=== PATIENT | female | born 1940 | race Caucasian/White ===

== ENCOUNTER 2020-01-20 23:25 | Inpatient (IN) | payer MEDICARE, BC, SELFPAY ==
--- NOTE | 2020-01-20 23:33 | P.HP_ITS ---
Providers/Chief Complaint Admitting Physician: Patrick Almeida MD Primary Care Provider: Sav Gaming Chief Complaint: A FLUTTER COPD EXACERBATION History of Present Illness Alyse Ang is a 79 year old female who has established coronary artery disease status post CABG HERNANDEZ to LAD venous graft to PDA, history of active smoker, dyslipidemia, hypertension, was admitted for chief complaint of shortness of breath at [facility] from [facility] assisted [facility] for management of COPD exacerbation due to pneumonia. Sputum culture grew Haemophilus influenza and she was kept on ceftriaxone and azithromycin. Her beta-georgiana was held secondary to COPD exacerbation, On telemetry her heart rate has been fluctuating between 36-143 atrial fibrillation/atrial flutter, however when beta-georgiana was resumed her heart rate consistently remained between 60-80, she remained hemodynamically stable, she was started on Eliquis 5 mg twice a day. 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 Landers and there is some concern for tachybradycardia syndrome. On her arrival to our facility, she was asymptomatic, no chest pain no shortness of breath, she was saturating well on 2 L nasal cannula. Patient is stating that she has not been using oxygen at the facility because she has very bad shoulders/osteoarthritis and not able to carry the oxygen tank, she is smoking 1 pack/day, she is compliant with her medications, she saw Dr. Landers around October 2019 and he recommended follow-up in 9 months. She does not carry previous diagnosis of atrial fibrillation/flutter. She is currently denying any shortness of breath, orthopnea, PND, sinus tenderness, flulike symptoms, dysuria, change in bowel habits. Review of records showed White count 8.8 Hemoglobin 11.8 Platelets 313 Sodium 138 Potassium 4.3 Magnesium 2.0 BUN 9 Creatinine 0.61 GFR greater than 60 CO2 28 AST 21 ALT 15 Alk phosphatase 93 6-hour troponin XVII with 6-hour delta troponin -3 Sputum culture 3-4 positive numerous Haemophilus influenza positive beta- lactamase negative sensitive to penicillin Chest x-ray showed COPD changes with possible lower lobe pneumonia, vascular c ongestion, Review of Systems Const: Reports: chills; Denies: fever Eyes: Denies: change in vision ENMT: Denies: throat pain Card: Denies: chest pain Resp: Reports: shortness of breath and productive cough GI: Denies: abdominal pain or nausea : Denies: flank pain or difficulty urinating Musc: Denies: neck pain or back pain Skin/Breast: Denies: rash or itching Neuro: Denies: headache or numbness in extremities Psych: Denies: anxiety Endo: Denies: excessive urination Santiago/Lymph: Denies: easy bruising All/Imm: Denies: hives Medications/Allergies Home Medications Medication Instructions Recorded Confirmed Last Taken Type albuterol sulfate 2 puff INHALATION Q4H PRN 01/20/20 01/20/20 01/20/20 History amlodipine 10 mg PO DAILY 01/20/20 01/20/20 01/20/20 History aspirin 81 mg PO DAILY 01/20/20 01/20/20 01/20/20 History diphenhydramine HCl 25 mg PO Q4H PRN 01/20/20 01/20/20 01/20/20 History hydrochlorothiazide 25 mg PO DAILY 01/20/20 01/20/20 01/20/20 History lisinopril 10 mg PO DAILY 01/20/20 01/20/20 01/20/20 09:00 History metoprolol tartrate 25 mg PO BID 01/20/20 01/20/20 01/20/20 21:00 History vh-2-lll-epa-fish oil-vit D3 [Fish 1 cap PO DAILY 01/20/20 01/20/20 Unknown History Oil-Vit D3] rosuvastatin 20 mg PO BEDTIME 01/20/20 01/20/20 01/20/20 21:00 History Allergies Allergy/AdvReac Type Severity Reaction Status Date / Time cortisone Allergy Unknown Verified 01/21/20 00:07 doxycycline Allergy ADR-Itching Verified 12/15/19 14:15 PFSH Acute PFSH: Medical History (Updated 01/21/20 @ 00:15 by Domi Rodriguez MD) Coronary disease Dyslipidemia Former smoker Hypertension Surgical History (Updated 01/20/20 @ 23:35 by Domi Rodriguez MD) S/P CABG (coronary artery bypass graft) HERNANDEZ to LAD and saphenous vein graft to posterior descending artery of right coronary Family History (Updated 01/21/20 @ 00:12 by Domi Rodriguez MD) Other Hypertension Denies family history of Diabetes Dementia Cancer Social History (Updated 01/21/20 @ 00:13 by Domi Rodriguez MD) Smoking and tobacco status: current every day smoker cigarettes Packs smoked per day: 1 Years cigarettes smoked: 47 Alcohol intake: never Substance/Drug Use: never Housing: Assisted Living Facility Physical Exam Narrative: EXAM NARRATIVE: Pleasant elderly female Saturating well on 2 L nasal cannula No active respiratory distress No active wheezing, bilateral breath sounds Abdomen soft nontender nondistended Variable S1-S2, no active signs of JVD or heart failure Lower extremity does not show any signs of ischemia gangrene also Appropriate mood and affect Neurological nonfocal exam No digital clubbing No pursed lip breathing Bluish tint of digits A&P Assessment and plan (1) Atrial flutter: Status: Acute Code(s): I48.92 - Unspecified atrial flutter (2) Pneumonia: Status: Acute Code(s): J18.9 - Pneumonia, unspecified organism (3) Smoking greater than 40 pack years: Status: Acute Code(s): F17.210 - Nicotine dependence, cigarettes, uncomplicated Additional A&P Information Atrial flutter without RVR Chadvasc?5 Hemodynamically stable Magnesium 2, potassium greater than 4 We will check TSH I would resume beta-georgiana and Eliquis Her telemetry strip is showing heart rate to be as low as 36 and maximum 143 Monitor for any signs of tachybradycardia syndrome and hemodynamic instability COPD exacerbation secondary to Haemophilus influenza pneumonia I would continue ceftriaxone for Haemophilus and azithromycin for anti- inflammatory effect DuoNeb treatment No need of steroids she is not actively wheezing Patient is an active smoker and is not using oxygen which has been prescribed to her, patient has been extensively counseled on benefits of quitting smoking and prevention of COPD exacerbations. Reinforced the fact that oxygen and quitting smoking shows to decrease mortality and COPD Established coronary disease status post CABG Continue aspirin, statin, lisinopril No active chest pain, Follow-up with EKG Troponin not significantly high as per records from [place] Glucose intolerant range: Patient is stating that she has not been using metformin for quite a while and she is not diabetic We will check A1c level Diet: Cardiac GI prophylaxis: Not needed Full code Attestations Medical Necessity Statement*: Will admit for evaluation of atrial flutter in room anticipating discharge in less than 48 hours if he stays stable Time Spent in Patient Care: 50 Coding Level of Care Code Acute Physician Allergist Immunologist for Chg Fwd Diagnoses Atrial flutter I48.92 Pneumonia J18.9 Smoking greater than 40 pack years F17.210
[2020-01-20 23:35] VITALS: BMI 23.3
--- NOTE | 2020-01-20 23:55 | ECG_ITS ---
Measurements Intervals [place] Rate: 72 P: 148 WI: 134 QRS: 11 QRSD: 97 T: 153 QT: 377 QTc: 414 Atrial flutter with controlled ventricular response ST DEVIATION AND MODERATE T-WAVE ABNORMALITY, CONSIDER ANTEROLATERAL ISCHEMIA [- [-0.1+ mV T WAVE IN V3-V6] No previous ECG available for comparison Electronically Signed On 01-21-2020 11:35:56 FISH GRADER by Juancarlos De La Vega M.D. [email or web address]
[2020-01-21] VITALS (7 sets, daily range): BP systolic 109–132; BP diastolic 66–71; PULSE 63–119; RESP 16–27; TEMP 36.6–36.7; O2SAT 90–96
[2020-01-21 01:18] LABS: Basophils % 0.1 %; Hematocrit 34.6 % (37.0-47.0); Hemoglobin 11.2 g/dL (11.5-15.3); Lymphocytes # 1.5 10^3/uL (0.8-4.8); Lymphocytes % 12.7 %; Mean Corpuscular HGB Conc 32.4 g/dL (30.0-36.0); Mean Corpuscular Hemoglobin 26.7 pg (28.0-34.0); Mean Corpuscular Volume 82.6 fL (81-99); Mean Platelet Volume 7.9 fL (7.4-10.4); Monocytes # 0.3 10^3/uL (0.2-0.9); Monocytes % 2.8 %; Neutrophils # 9.4 10^3/uL (1.8-7.7); Neutrophils % 79.9 %; Nucleated Red Blood Cells % 0 %; Platelet Count 310 10^3/cmm (130-400); Red Blood Count 4.19 10^6/uL (4.1-5.3); White Blood Count 11.7 10^3/uL (4.0-10.0)
[2020-01-21 01:31] LABS: Anion Gap 15.3 (5-19); Blood Urea Nitrogen 20 mg/dL (8-23); Calcium 10.1 mg/dL (8.5-10.5); Carbon Dioxide 30 mmol/L (22-29); Chloride 94 mmol/L (98-107); Glucose 157 mg/dL (65-115); Magnesium 2.3 mg/dL (1.7-2.3); Osmolality Calculated 280 mOsm/kg (285-295); Potassium 4.3 mmol/L (3.5-5.1); Sodium 135 mmol/L (136-145)
[2020-01-21 01:35] LABS: Estmated Average Glucose 137; Hemoglobin A1C 6.4 % (4.0-6.0)
--- NOTE | 2020-01-21 05:39 | USCV_ITS ---
Alyse Ang Age: 79 Gender: F : 1940 Exam Date: 01/21/2020 06:23 Ordering Phys: Domi Rodriguez MD Technologist: Lucy Randle Exam Location: [facility] [place] Indication: NEW ONSET AFLUTTER BP: 128 / 66 HR: 74 Rhythm: Sinus Technical Quality: Adequate MEASUREMENTS (Male / Female) Normal Values 2D ECHO LV Diastolic Diameter PLAX 5.1 cm 4.2 - 5.9 / 3.9 - 5.3 cm LV Systolic Diameter PLAX 3.8 cm IVS Diastolic Thickness 1.0 cm 0.6 - 1.0 / 0.6 - 0.9 cm IVS Systolic Thickness 1.3 cm LVPW Diastolic Thickness 0.9 cm 0.6 - 1.0 / 0.6 - 0.9 cm LVPW Systolic Thickness 1.2 cm LVOT Diameter 2.0 cm LV Ejection Fraction 2D Teich 52.1 % LV Ejection Fraction MOD 2C 61.6 % LV Ejection Fraction 2C AL 64.4 % LA Diameter 4.3 cm LA Width 3.5 cm LA Height 6.0 cm RA Width 4.0 cm RA Height 5.2 cm Aorta at Sinotubular Diameter 3.1 cm M-MODE LV Diastolic Diameter MM 5.4 cm 4.2 - 5.9 / 3.9 - 5.3 cm LV Systolic Diameter MM 3.9 cm LV Ejection Fraction MM Teich 54.0 % IVS Diastolic Thickness MM 0.8 cm 0.6 - 1.0 / 0.6 - 0.9 cm IVS Systolic Thickness MM 1.1 cm LVPW Diastolic Thickness MM 0.8 cm 0.6 - 1.0 / 0.6 - 0.9 cm LVPW Systolic Thickness MM 1.0 cm Aortic Annulus Diameter 3.3 cm LA Ao Ratio MM 1.3 MV E Point Septal Separation 0.1 cm DOPPLER AV Peak Velocity 142.0 cm/s LVOT Peak Velocity 106.0 cm/s AV Area Cont Eq vti 2.2 cm squared AV Area Cont Eq pk 2.3 cm squared MV Area PHT 4.6 cm squared Mitral E to A Ratio 1.8 MV E' Velocity 20.0 cm/s Mitral E to MV E' Ratio 6.3 Mitral E to LV E' Lateral Ratio 5.4 Mitral E to LV E' Septal Ratio 7.5 TR Peak Velocity 248.8 cm/s TR Peak Gradient 24.8 mmHg TR Mean Velocity 196.3 cm/s TR Mean Gradient 16.3 mmHg TR Velocity Time Integral 82.6 cm TV Peak E Velocity 73.0 cm/s Right Atrial Pressure 3.0 mmHg Pulmonary Artery Systolic Pressu 27.8 mmHg PV Peak Velocity 85.0 cm/s RV Acceleration Time 0.1 s RV Ejection Time 0.3 s RV AcT/ET 0.3 FINDINGS Left Ventricle Normal left ventricular size, systolic function and wall thickness, with no regional wall motion abnormalities. Grade II/IV diastolic dysfunction, moderately elevated filling pressures. Left ventricular ejection fraction is estimated at 60%. Right Ventricle Normal right ventricular size and systolic function. Normal right ventricular systolic pressure. Right Atrium Mildly increased right atrial size. Left Atrium Moderately increased left atrial size. There is an atrial septal aneurysm without evidence for shunt. Mitral Valve Structurally normal mitral valve. Mild mitral valve regurgitation. Aortic Valve Structurally normal aortic valve without significant sclerosis or stenosis. There is no aortic regurgitation. Tricuspid Valve Structurally normal tricuspid valve. Moderate tricuspid valve regurgitation. Pulmonic Valve Pulmonic valve not well visualized. Mild pulmonary valve regurgitation. Pericardium Normal pericardium without effusion. Aorta Normal ascending aorta dimension. CONCLUSIONS Normal left ventricular size, systolic function and wall thickness, with no regional wall motion abnormalities. Grade II/IV diastolic dysfunction, moderately elevated filling pressures. Left ventricular ejection fraction is estimated at 60%. Mildly increased right atrial size. Moderately increased left atrial size. There is an atrial septal aneurysm without evidence for shunt. Structurally normal mitral valve. Mild mitral valve regurgitation. There are no prior echocardiogram studies to compare. Dr. Juancarlos De La Vega MD (Electronically Signed) Final Date: 21 January 2020 09:20 S
[2020-01-21] MEDS: aspirin 81 mg EC Tablet PO (09:22)
[2020-01-21] MEDS: lisinopril 10 mg Tablet PO (09:22)
[2020-01-21] MEDS: azithromycin 250 mg Tablet PO (09:22)
[2020-01-21] MEDS: amlodipine 10 mg Tablet PO (09:22)
[2020-01-21] MEDS: apixaban 5 mg Tablet PO ×2 (09:22→18:35)
[2020-01-21] MEDS: metoprolol tartrate 25 mg Tablet PO ×2 (09:22→18:34)
--- NOTE | 2020-01-21 12:44 | PC.RESP ---
Patient given information on Pulmonary Rehab and Smoking Cessation and a list of classes scheduled.
--- NOTE | 2020-01-21 13:00 | P.PN_ITS ---
Subjective Subjective: Interval history: Patient was transferred overnight from [facility]. H&P and labs noted. This morning on examination patient lying comfortably in bed without having any nausea, vomiting, palpitations, shortness of breath. She states her cough has improved quite a bit. Patient continues to be in a flutter but rate controlled ranging from 80-90 bpm. Overnight patient had few runs of heart rate going down to 40s while she was sleeping. Vitals/I&O/Wt Last Vital Signs Temp 98.1 F 01/21/20 07:23 Pulse 110 H 01/21/20 09:08 Resp 16 01/21/20 09:08 BP 132/69 01/21/20 07:23 Pulse Ox 96 01/21/20 09:08 01/20/20 01/21/20 01/21/20 22:59 06:59 14:59 Intake Total 240 / 240 240 / 240 Output Total 1100 / 1100 Balance 240 / 240 -860 / -860 Weight last 48 hrs Weight 59.874 kg Physical Exam Narrative: EXAM NARRATIVE: General: No acute distress, AO x3, dehydrated on examination HEENT: PERRLA, pupils bilaterally equal and reactive Chest: Normal vesicular breath sounds all over the lung horta except bronchial breath sounds on the right lower zone, equal good air entry bilaterally CVS: S1-S2 irregular, no murmurs, no tachycardia, no gallops, no rubs, JVD no rmal Abdomen: Soft, nontender, no organomegaly, bowel sounds present Neuro: No focal deficits, no facial deformity, AO x3, power 5/5 in all limbs Data : 01/21/20 01:10 01/21/20 01:10 A&P Assessment and plan (1) Atrial flutter: Status: Acute Code(s): I48.92 - Unspecified atrial flutter (2) Pneumonia due to hemophilus influenzae: Status: Acute Code(s): J14 - Pneumonia due to Hemophilus influenzae (3) COPD (chronic obstructive pulmonary disease): Status: Acute Code(s): J44.9 - Chronic obstructive pulmonary disease, unspecified (4) S/P CABG (coronary artery bypass graft): Status: Acute Code(s): Z95.1 - Presence of aortocoronary bypass graft (5) Smoking greater than 40 pack years: Status: Acute Code(s): F17.210 - Nicotine dependence, cigarettes, uncomplicated Additional A&P Information Atrial flutter without RVR: New diagnosis. Rate controlled. Chadvasc?5 For now continue with home dose of metoprolol 25 mg twice daily. Continue with Eliquis 5 mg twice daily. Echocardiogram results appreciated. Echo showing a normal EF with grade 2 diastolic dysfunction with moderately increased size of LA. We will consult cardiology for possible medical versus electrical cardioversion given new onset of a flutter along with episodes of tachybradycardia. Check proBNP. H influenza pneumonia: As per the records and review from outside hospital patient had H. influenzae which was sensitive to penicillin. Patient has been getting Rocephin till now. Has received 4 dose. We will change her to Augmentin for 3 more days to finish a 7-day course. Check procalcitonin. COPD exacerbation: Most likely due to pneumonia. Continue with budesonide and duo nebs. Discussed in detail regarding cessation of smoking. Oxygen supplementation keeping saturation over 90%. Patient would need home O2 evaluation before discharge. Patient does not need steroids at present as COPD exacerbation seems to be well controlled. History of CABG: Continue aspirin, statin, lisinopril No active chest pain, We will check lipid panel tomorrow morning. HbA1c results appreciated. Type 2 diabetes mellitus: Patient's HbA1c is 6.4. Patient on discharge most likely will need metformin. For now we will do insulin sliding scale at low protocol and will see how much insulin patient requires. Diet: Cardiac GI prophylaxis: Not needed Full code Attestations Medical Necessity Statement*: Atrial flutter, tachybradycardia Time Spent in Patient Care: Greater than 35 minutes (>than 50% of time spent in counselling and/or direct pt care on unit) . Coding Level of Care Code Acute Keyboard Instrument Tuner for [facility] Fwana maria Diagnoses Atrial flutter I48.92 Pneumonia due to hemophilus influenzae J14 COPD (chronic obstructive pulmonary disease) J44.9 S/P CABG (coronary artery bypass graft) Z95.1 Smoking greater than 40 pack years F17.210
[2020-01-21] MEDS: amoxicillin-clav 875-125 mg Tablet 1 TAB PO ×2 (14:06→18:34)
[2020-01-21] MEDS: lactulose oral liq 20 gm/30 mL UDC 10 GM PO (14:14)
[2020-01-21] MEDS: bisacodyl 5 mg Tablet 10 MG PO (14:15)
[2020-01-21 15:59] LABS: NT Pro B Type Natriuretic Pept 4642 pg/mL (0-450); Procalcitonin 0.07 ng/mL (0-0.5)
[2020-01-21 16:10] LABS: Iron 54 ug/dL (37-145); Percent Saturation 20.6 % (20-50); Total Iron Binding Capacity 262 mcg/dl; Unsaturated Iron Binding 208 ug/dL (112-347)
--- NOTE | 2020-01-21 16:20 | PM.CONSULT ---
Providers/Reason For Consult Consulting Physican/Specialty*: Cardiology Reason for Consult*: Atrial flutter Attending Physician: Patrick Almeida MD Primary Care Provider: Sav Gaming History of Present Illness History of Present Illness Alyse Ang is a 79 year old female Past medical history significant for cornaryl artery disease status post CABG, history of COPD on oxygen, hypertension, hyperlipidemia intermittent tobacco abuse presented With COPD exacerbation questionable influenza as per patient she was told that she has influenza a few days ago, no record available to us. She also told me that metoprolol was stopped most likely because of COPD exacerbation few days ago. When she was not able to breathe she went to the ER she was also found to be in atrial flutter with rapid ventricular response. She was transferred to the [facility]. She was treated for COPD exacerbation and restarted on metoprolol along with anticoagulation. Since then heart rate is under control. She denies chest pain PND and orthopnea. Review of Systems Const: Reports: chills; Denies: fever Eyes: Denies: change in vision ENMT: Denies: throat pain Card: Denies: chest pain Resp: Reports: shortness of breath and productive cough GI: Denies: abdominal pain or nausea : Denies: flank pain or difficulty urinating Musc: Denies: neck pain or back pain Skin/Breast: Denies: rash or itching Neuro: Denies: headache or numbness in extremities Psych: Denies: anxiety Endo: Denies: excessive urination Santiago/Lymph: Denies: easy bruising All/Imm: Denies: hives Meds/Allergies Home Medications and Allergies Home Medications Medication Instructions Recorded Confirmed Type albuterol sulfate 2 puff INHALATION Q4H PRN 01/20/20 01/20/20 History amlodipine 10 mg PO DAILY 01/20/20 01/20/20 History aspirin 81 mg PO DAILY 01/20/20 01/20/20 History diphenhydramine HCl 25 mg PO Q4H PRN 01/20/20 01/20/20 History hydrochlorothiazide 25 mg PO DAILY 01/20/20 01/20/20 History lisinopril 10 mg PO DAILY 01/20/20 01/20/20 History metoprolol tartrate 25 mg PO BID 01/20/20 01/20/20 History br-3-ety-epa-fish oil-vit D3 [Fish 1 cap PO DAILY 01/20/20 01/20/20 History Oil-Vit D3] rosuvastatin 20 mg PO BEDTIME 01/20/20 01/20/20 History Allergies Allergy/AdvReac Type Severity Reaction Status Date / Time cortisone Allergy Unknown Verified 01/21/20 00:07 doxycycline Allergy ADR-Itching Verified 12/15/19 14:15 Current Medications Current Medications Generic Name Dose Route Start Last Admin Trade Name Freq PRN Reason Stop Dose Admin Amlodipine Besylate 10 mg 01/21/20 09:00 01/21/20 09:22 Norvasc PO 10 mg DAILY GARRICK Administration Amoxicillin/Clavulanate Potassium 1 tab 01/21/20 13:00 01/21/20 14:06 Augmentin 875-125 Mg PO 1 tab BID GARRICK Administration Protocol Apixaban 5 mg 01/21/20 09:00 01/21/20 09:22 Eliquis PO 5 mg BID GARRICK Administration Aspirin 81 mg 01/21/20 09:00 01/21/20 09:22 Aspirin Ec PO 81 mg DAILY GARRICK Administration Azithromycin 250 mg 01/21/20 09:00 01/21/20 09:22 Zithromax PO 250 mg DAILY GARRICK Administration Protocol Bisacodyl 10 mg 01/21/20 12:28 01/21/20 14:15 Dulcolax PO 10 mg DAILY PRN Administration CONSTIPATION Lactulose 10 gm 01/21/20 12:28 01/21/20 14:14 Constulose PO 10 gm DAILY PRN Administration CONSTIPA Lisinopril 10 mg 01/21/20 09:00 01/21/20 09:22 Prinivil PO 10 mg DAILY GARRICK Administration Metoprolol Tartrate 25 mg 01/21/20 09:00 01/21/20 09:22 Lopressor PO 25 mg BID GARRICK Administration PFSH Acute PFSH: Medical History (Updated 01/21/20 @ 16:34 by Domi Craig MD) COPD (chronic obstructive pulmonary disease) Coronary disease Dyslipidemia Former smoker Hypertension Surgical History S/P CABG (coronary artery bypass graft) HERNANDEZ to LAD and saphenous vein graft to posterior descending artery of right coronary Family History Other Hypertension Denies family history of Diabetes Dementia Cancer Social History Smoking and tobacco status: current every day smoker cigarettes Packs smoked per day: 1 Years cigarettes smoked: 47 Alcohol intake: never Substance/Drug Use: never Housing: Assisted Living Facility Vitals/I&O/Wt Last Vital Signs Temp 97.8 F 01/21/20 15:16 Pulse 75 01/21/20 15:16 Resp 27 H 01/21/20 15:16 BP 126/71 01/21/20 15:16 Pulse Ox 90 01/21/20 15:16 01/21/20 01/21/20 01/21/20 06:59 14:59 22:59 Intake Total 240 / 240 240 / 240 Output Total 1100 / 1100 Balance 240 / 240 -860 / -860 Weight last 48 hrs Weight 132 lb Physical Exam Narrative: EXAM NARRATIVE: GENERAL: Patient is alert, awake and oriented x3. NECK: No jugular vein distension. HEENT: No cyanosis. No icterus. No pallor. HEART: Irregular S1 and S2. No murmur, rub or gallop. LUNGS: Decreased breath sound bilaterally. ABDOMEN: Soft, nontender and nondistended. Positive bowel sounds. No guarding, rebound or tenderness. CENTRAL NERVOUS SYSTEM: Grossly nonfocal. EXTREMITIES: Lower extremities without edema bilaterally. A&P Assessment and plan (1) Atrial flutter: Patient is rate controlled. She is on anticoagulation. Since patient has underlying COPD exacerbation it will be hard to keep her in sinus rhythm. For now our strategy would be to continue controlling heart rate with metoprolol or if needed calcium channel georgiana Can be added. We will reassess in the morning. Status: Acute Qualifiers: Atrial flutter type: typical Qualified Code(s): I48.3 - Typical atrial flutter Code(s): I48.92 - Unspecified atrial flutter (2) Pneumonia: As per medicine. Status: Acute Code(s): J18.9 - Pneumonia, unspecified organism (3) S/P CABG (coronary artery bypass graft): Stable from a coronary disease perspective. Continue to monitor Status: Acute Code(s): Z95.1 - Presence of aortocoronary bypass graft Coding Level of Care Code New Pt Acute Speech Language Pathologist Prn for Chg Fwd Patient Type New History Expanded Problem Focused Exam Expanded Problem Focused Medical Decision Making Moderate Complexity Diagnoses Atrial flutter I48.3 Atrial flutter type: typical Pneumonia J18.9 S/P CABG (coronary artery bypass graft) Z95.1
[2020-01-21 17:05] LABS: Glucose Point of Care 112 mg/dL (70-110)
[2020-01-21] MEDS: ipratropium-albuterol 3 mL Neb INHALATION (20:41)
[2020-01-21] MEDS: budesonide 0.5 mg/2 mL Neb INHALATION (20:41)
[2020-01-21 21:09] LABS: Glucose Point of Care 115 mg/dL (70-110)
[2020-01-22] VITALS (11 sets, daily range): BP systolic 109–117; BP diastolic 52–73; PULSE 68–92; RESP 13–20; TEMP 36.5–36.8; O2SAT 87–95
[2020-01-22] MEDS: ipratropium-albuterol 3 mL Neb INHALATION ×3 (03:25→14:51)
[2020-01-22 04:19] LABS: Basophils % 0.1 %; Eosinophils % 0.2 %; Hematocrit 37.2 % (37.0-47.0); Hemoglobin 11.8 g/dL (11.5-15.3); Lymphocytes # 4.3 10^3/uL (0.8-4.8); Lymphocytes % 30.2 %; Mean Corpuscular HGB Conc 31.7 g/dL (30.0-36.0); Mean Corpuscular Hemoglobin 27.4 pg (28.0-34.0); Mean Corpuscular Volume 86.3 fL (81-99); Mean Platelet Volume 7.8 fL (7.4-10.4); Monocytes # 0.9 10^3/uL (0.2-0.9); Monocytes % 6.5 %; Neutrophils # 8.7 10^3/uL (1.8-7.7); Neutrophils % 60.6 %; Nucleated Red Blood Cells % 0 %; Platelet Count 327 10^3/cmm (130-400); Red Blood Count 4.31 10^6/uL (4.1-5.3); White Blood Count 14.4 10^3/uL (4.0-10.0)
[2020-01-22 04:42] LABS: Alanine Aminotransferase 25 U/L (0-33); Alkaline Phosphatase 71 IU/L (35-105); Anion Gap 11.5 (5-19); Aspartate Amino Transferase 15 U/L (0-32); Blood Urea Nitrogen 20 mg/dL (8-23); Calcium 9.1 mg/dL (8.5-10.5); Carbon Dioxide 32 mmol/L (22-29); Chloride 98 mmol/L (98-107); Globulin 2.4 g/dL (1.3-4.6); Glucose 96 mg/dL (65-115); Potassium 3.5 mmol/L (3.5-5.1); Sodium 138 mmol/L (136-145); Total Bilirubin 0.2 mg/dL (0.15-1.2); Total Protein 5.4 g/dL (6.6-8.7)
[2020-01-22 06:24] LABS: Glucose Point of Care 102 mg/dL (70-110)
[2020-01-22] MEDS: budesonide 0.5 mg/2 mL Neb INHALATION (09:23)
[2020-01-22] MEDS: metoprolol tartrate 25 mg Tablet PO (09:26)
[2020-01-22] MEDS: azithromycin 250 mg Tablet PO (09:26)
[2020-01-22] MEDS: apixaban 5 mg Tablet PO (09:27)
[2020-01-22] MEDS: amlodipine 10 mg Tablet PO (09:27)
[2020-01-22] MEDS: aspirin 81 mg EC Tablet PO (09:27)
[2020-01-22] MEDS: amoxicillin-clav 875-125 mg Tablet 1 TAB PO (09:27)
[2020-01-22] MEDS: lisinopril 10 mg Tablet PO (09:27)
--- NOTE | 2020-01-22 10:59 | P.PN_ITS ---
Subjective Subjective: Interval history: Heart rate is reasonably under control today she is in A. fib. Pulmonary status has started improving. Overall she is feeling better. Medications: Reviewed: Yes Vitals/I&O/Wt Last Vital Signs Temp 97.7 F 01/22/20 07:23 Pulse 92 01/22/20 09:27 Resp 20 H 01/22/20 09:27 BP 113/68 01/22/20 07:23 Pulse Ox 94 01/22/20 09:27 01/21/20 01/22/20 01/22/20 22:59 06:59 14:59 Intake Total 240 / 480 100 / 580 480 / 480 Balance 240 / -620 100 / -520 480 / 480 Weight last 48 hrs Weight 133 lb Weight 132 lb Physical Exam Narrative: EXAM NARRATIVE: GENERAL: Patient is alert, awake and oriented x3. NECK: No jugular vein distension. HEENT: No cyanosis. No icterus. No pallor. HEART: Irregularly irregular S1 and S2. No murmur, rub or gallop. LUNGS: Decreased breath sound bilaterally. ABDOMEN: Soft, nontender and nondistended. Positive bowel sounds. No guarding, rebound or tenderness. CENTRAL NERVOUS SYSTEM: Grossly nonfocal. EXTREMITIES: Lower extremities without edema bilaterally. Data : 01/22/20 03:35 01/22/20 03:35 A&P Assessment and plan (1) Atrial flutter: Heart rate is under control hopefully once pulmonary status will further improve heart rate will settle down we will continue same dose of metoprolol and anticoagulation. From a cardiovascular perspective patient can be discharged if okay with medicine they have to give us permission regarding pulmonary status flores Status: Acute Qualifiers: Atrial flutter type: typical Qualified Code(s): I48.3 - Typical atrial flutter Code(s): I48.92 - Unspecified atrial flutter (2) Pneumonia: As per medicine. Status: Acute Code(s): J18.9 - Pneumonia, unspecified organism (3) S/P CABG (coronary artery bypass graft): Stable from a coronary disease perspective. Continue to monitor Status: Acute Code(s): Z95.1 - Presence of aortocoronary bypass graft Attestations Medical Necessity Statement*: As per medicine Coding Level of Care Code Established Pt Acute Industrial Relations Officer for g Fwd Patient Type Established History Expanded Problem Focused Exam Expanded Problem Focused Medical Decision Making Moderate Complexity Diagnoses Atrial flutter I48.3 Atrial flutter type: typical Pneumonia J18.9 S/P CABG (coronary artery bypass graft) Z95.1
[2020-01-22 11:37] LABS: Glucose Point of Care 159 mg/dL (70-110)
--- NOTE | 2020-01-22 11:57 | PC.CHAP ---
Pastoral Care Encounter/Spiritual Assessment Type of Contact [] Declined leasing director visit [] Patient/Family/Request visit [] Outpatient visit [] Follow-up visit [] Physician referral [] Code/Alert [x] Routine visit [] Staff referral [] Actively dying [] Patient sleeping [] Family support [] [] Out of room [] Palliative care [] [] Receiving care in room [] Pre-surgical visit [] Trauma [] Long length of stay [] ICU visit [] Other: Relational/Emotional Strength [x] Patient feels connected with others/family/visitors/staff [] Distress [] Loneliness/isolation [] Abandonment Spirituality of Patient [x] Person of Teresa [x] Attends Sabianist of their Teresa [x] Believes in Prayer [x] Reads Bible or Islam materials [] There are Spiritual issues to be addressed Agronomy Location Manager Interventions [x] Prayer [x] Active listening [x] Non-anxious presence [x] Spiritual/emotional support [] Crisis/trauma care [x] Spiritual counseling [] Bereavement support [] Provided bereavement packet [] Provided Bible/devotional materials [] Provided toy/stuffed animal, coloring book to patient or family member [] Provided Communion [] Anointing/[employer] [] Salvation [] Completed spiritual assessment [] Other: Impact on Illness or Injury [] Angry [] Fearful [] Anxious [] Often cries [] Exhaustion [] Unable to work [] Unable to attend anabaptism [] Unable to walk/stand [] Unable to read [] Unable to drive [] Unable to eat/drink [] Unable to sleep [] Unable to be with family [] Patient intubated [x] Other: n/a Summary Time spent with patient 5 minutes
--- NOTE | 2020-01-22 13:28 | P.DS_ITS ---
Discharge Providers Date of Admission: 01/21/20 12:29 Date of Discharge: January 22, 2020 Attending Provider at Admission: Patrick Almeida MD Attending Provider at Discharge: Patrick Almeida MD Primary Care Provider: Sav Gaming Diagnoses at Discharge Discharge Diagnosis (1) Atrial flutter: Status: Acute Qualifiers: Atrial flutter type: typical Qualified Code(s): I48.3 - Typical atrial flutter (2) Pneumonia: Status: Acute (3) S/P CABG (coronary artery bypass graft): Status: Acute Problem details: HERNANDEZ to LAD and saphenous vein graft to posterior descending artery of right coronary Reason for Visit Reason for Visit: Reason For Visit: A FLUTTER COPD EXACERBATION Hospital Course Discharge Summary: Alyse Ang is a 79 year old female who has established coronary artery disease status post CABG HERNANDEZ to LAD venous graft to PDA, history of active smoker, dyslipidemia, hypertension, was admitted for chief complaint of shortness of breath at [facility] from [facility] assisted living for management of COPD exacerbation due to pneumonia. Sputum culture grew Haemophilus influenza and she was kept on ceftriaxone and azithromycin. Her beta-georgiana was held secondary to COPD exacerbation, On telemetry her heart rate has been fluctuating between 36-143 atrial fibrillation/atrial flutter, however when beta-georgiana was resumed her heart rate consistently remained b etween 60-80, she remained hemodynamically stable, she was started on Eliquis 5 mg twice a day. She was transferred to our hospital because her recreational counselor is Dr. Craig and there is some concern for tachybradycardia syndrome. On transfer to [facility] on 01/19/30, she was asymptomatic, no chest pain no shortness of breath, she was saturating well on 2 L nasal cannula. Patient is stating that she has not been using oxygen at the facility because she has very bad shoulders/osteoarthritis and not able to carry the oxygen tank, she is smoking 1 pack/day, she is compliant with her medications, she saw Dr. Landers around October 2019 and he recommended follow-up in 9 months. She does not carry previous diagnosis of atrial fibrillation/flutter. She is currently denying any shortness of breath, orthopnea, PND, sinus tenderness, flulike symptoms, dysuria, change in bowel habits. Patient was continued on home dose of metoprolol and she remained in a flutter but was rate controlled. She did have some episode of possible bradycardia overnight with heart rate going down to 50s but patient was asymptomatic. Echocardiogram was done which showed a normal LV systolic function with grade 2 diastolic dysfunction with an EF of 60% and a mildly increased right atrium with a moderately increased left atrial size. Patient also had an atrial septal aneurysm without any evidence of shunt. Cardiology was consulted for possibility of tachybradycardia syndrome versus discussion regarding electrocardioversion. It was decided as patient has chronic COPD cardioversion would not be a good option for the patient as she would possibly convert back into a flutter very soon. So plan was made to continue her on rate limiting medications. Patient is been discharged in hemodynamic stable condition with advised to follow-up with cardiology within 2 weeks along with oral Augmentin to which are heme influenza pneumonia is susceptible to finish a course of overall 7 days. Home O2 evaluation has been done. Physical Exam Narrative: EXAM NARRATIVE: General: No acute distress, AO x3, dehydrated on examination HEENT: PERRLA, pupils bilaterally equal and reactive Chest: Normal vesicular breath sounds all over the lung horta except bronchial breath sounds on the right lower zone, equal good air entry bilaterally CVS: S1-S2 irregular, no murmurs, no tachycardia, no gallops, no rubs, JVD normal Abdomen: Soft, nontender, no organomegaly, bowel sounds present Neuro: No focal deficits, no facial deformity, AO x3, power 5/5 in all limbs Discharge Data Data Completed and Pending: Completed Studies During Hospitalization Category Date Time Status CV echo complete* [id number] Routine Ultrasound 01/21/20 05:39 Completed Labs from last 24 hours 01/22/20 01/22/20 01/22/20 11:18 06:13 03:35 WBC RBC Hgb Hct MCV MCH MCHC RDW Plt Count MPV Neut % (Auto) Lymph % (Auto) [place] % (Auto) Eos % (Auto) Baso % (Auto) Neut # (Auto) Lymph # (Auto) [place] # (Auto) Eos # (Auto) Baso # (Auto) Nucleated RBC % (a uto) Nucleated RBCs # Sodium 138 Potassium 3.5 Chloride 98 Carbon Dioxide 32 H Anion Gap 11.5 BUN 20 Creatinine 0.8 Glucose 96 POC Glucose 159 102 Calcium 9.1 Iron TIBC % Saturation Unsat Iron Binding Total Bilirubin 0.2 AST 15 ALT 25 Alkaline Phosphata se 71 NT-Pro-B Natriuret Pep Total Protein 5.4 L Albumin 3.0 L Globulin 2.4 Procalcitonin 01/22/20 01/21/20 01/21/20 03:35 21:05 16:53 WBC 14.4 H RBC 4.31 Hgb 11.8 Hct 37.2 MCV 86.3 MCH 27.4 L MCHC 31.7 RDW 13.0 Plt Count 327 MPV 7.8 Neut % (Auto) 60.6 Lymph % (Auto) 30.2 [place] % (Auto) 6.5 Eos % (Auto) 0.2 Baso % (Auto) 0.1 Neut # (Auto) 8.7 H Lymph # (Auto) 4.3 [place] # (Auto) 0.9 Eos # (Auto) 0.0 Baso # (Auto) 0.0 Nucleated RBC % (a uto) 0 Nucleated RBCs # 0.0 Sodium Potassium Chloride Carbon Dioxide Anion Gap BUN Creatinine Glucose POC Glucose 115 112 Calcium Iron TIBC % Saturation Unsat Iron Binding Total Bilirubin AST ALT Alkaline Phosphata se NT-Pro-B Natriuret Pep Total Protein Albumin Globulin Procalcitonin 01/21/20 01:10 WBC RBC Hgb Hct MCV MCH MCHC RDW Plt Count MPV Neut % (Auto) Lymph % (Auto) [place] % (Auto) Eos % (Auto) Baso % (Auto) Neut # (Auto) Lymph # (Auto) [place] # (Auto) Eos # (Auto) Baso # (Auto) Nucleated RBC % (a uto) Nucleated RBCs # Sodium Potassium Chloride Carbon Dioxide Anion Gap BUN Creatinine Glucose POC Glucose Calcium Iron 54 TIBC 262 % Saturation 20.6 Unsat Iron Binding 208 Total Bilirubin AST ALT Alkaline Phosphata se NT-Pro-B Natriuret Pep 4642 H Total Protein Albumin Globulin Procalcitonin 0.07 Vitals: Last Vital Signs Temp 97.9 F 01/22/20 11:20 Pulse 68 01/22/20 11:20 Resp 19 H 01/22/20 11:20 BP 109/52 01/22/20 11:20 Pulse Ox 93 01/22/20 11:20 Discharge Plan Discharge Patient Disposition: Home, Self-Care Condition: Stable Prescriptions: New Eliquis 5 mg Tablet 5 mg PO BID Qty: 60 RF: 0 azithromycin 250 mg Tablet 250 mg PO DAILY Qty: 3 RF: 0 levalbuterol tartrate 45 mcg/actuation HFA aerosol inhaler 1 inh INHALATION Q4H PRN (Reason: shortness of breath or wheezing) Qty: 150 RF: 0 amoxicillin-pot clavulanate 875-125 mg Tablet 1 tab PO BID 3 Days Qty: 6 RF: 0 Continued aspirin 81 mg Tablet,Delayed Release (Dr/Ec) 81 mg PO DAILY RF: 0 amlodipine 10 mg Tablet 10 mg PO DAILY RF: 0 diphenhydramine HCl 25 mg Capsule 25 mg PO Q4H PRN (Reason: ALLERGIES) RF: 0 lisinopril 10 mg Tablet 10 mg PO DAILY RF: 0 hydrochlorothiazide 25 mg Tablet 25 mg PO DAILY RF: 0 rosuvastatin 20 mg Tablet 20 mg PO BEDTIME RF: 0 metoprolol tartrate 25 mg Tablet 25 mg PO BID RF: 0 Fish Oil-Vit D3 300-1,000-1,000 mg-mg-unit Capsule 1 cap PO DAILY RF: 0 Discontinued albuterol sulfate 2.5 mg /3 mL (0.083 %) solution for nebulization 2.5 mg INHALATION QID PRN (Reason: shortness of breath or wheezing) Qty: 360 RF: 0 albuterol sulfate 90 mcg/actuation Hfa Aerosol Inhaler 2 puff INHALATION Q4H PRN (Reason: Shortness Of Breath) RF: 0 Discharge Orders: Discharge Order (Routine); Ordered 01/22/20 Ordered By: Patrick Almeida Referrals: Domi Craig MD [Physician] - 2 weeks (You have a followup scheduled at [facility] on February 04 at 1:00pm with Lea Ford APN. Any appointment changes, please call them at [phone]) Holly Hebert FNP [Primary Care Provider] - 7-10 days (You have a hospital followup with ANA LUISA Elliott at [facility] on January 27 at 1:30pm. Any questions or appointment changes, please call them [phone] ) Discharge Diet: Cardiac Discharge Activity: Resume usual activity Discharge Attestations Time Spent in Discharge Care*: greater than 30 min Specific Discharge Activities: Specific discharge activities: educating patient, discussing with pcp/other providers, discussing with medical case manager/social workers/dc planners and evaluating patient/reviewing data Status at Discharge: Cognitive status at discharge: cognitively intact , Behavioral status at discharge: cooperative , Functional status at discharge: independent ambulation Overall status at discharge: patient is back to baseline Quality Metrics Clinical Quality Measures During this hospital stay, did patient experience: None Coding Level of Care Code Acute Annealing Furnace Operator for g Fwd Diagnoses Atrial flutter I48.3 Atrial flutter type: typical Pneumonia J18.9 S/P CABG (coronary artery bypass graft) Z95.1
--- NOTE | 2020-01-23 10:21 | PC.SOCIAL ---
Clarified with pharmacy quantity of Levalbuterol to 15 GM total not 150 GM spoke with Echo.
== END 2020-01-22 17:05 | disposition home or self-care (01) | DRG 308 ==
PROVIDERS: Internal Medicine; Admitting Provider Student in an Organized Health Care Education/Training Program; PCP Registered Nurse; Visit Provider Student in an Organized Health Care Education/Training Program
DX: I48.3 Typical atrial flutter (principal); J18.9 Pneumonia, unspecified organism; J14 Pneumonia due to Hemophilus influenzae; J44.1 Chronic obstructive pulmonary disease with (acute) exacerbation; F17.210 Nicotine dependence, cigarettes, uncomplicated; I25.10 Atherosclerotic heart disease of native coronary artery without angina pectoris; I48.91 Unspecified atrial fibrillation; I49.5 Sick sinus syndrome; I10 Essential (primary) hypertension; E11.9 Type 2 diabetes mellitus without complications; Z95.1 Presence of aortocoronary bypass graft; Z79.51 Long term (current) use of inhaled steroids; Z79.811 Long term (current) use of aromatase inhibitors; Z79.82 Long term (current) use of aspirin; Z79.83 Long term (current) use of bisphosphonates
CPT/HCPCS: 12345; 36415; 36416; 80048; 80053; 82962; 83036; 83540; 83550; 83735; 83880; 84145; 84443; 85025; 93005; 93306; 94640; 96372; 97116; 97161; G0378; G0379; J1815; J7626; Q0144

== ENCOUNTER 2020-07-28 13:03 | Outpatient (CLI) | payer MEDICARE, BC, SELFPAY | END 2020-07-28 13:04 | disposition home or self-care (01) | LOC: WOUND 13:04 | PROVIDERS: PCP Registered Nurse; Visit Provider Emergency Medicine | DX: L97.512 Non-pressure chronic ulcer of other part of right foot with fat layer exposed (principal) | CPT/HCPCS: 11042; 87070; 87077; 87176; 87186; 87205; G0463 ==

== ENCOUNTER 2020-07-30 10:58 | Outpatient (CLI) | payer MEDICARE, BC, SELFPAY ==
--- NOTE | 2020-07-30 11:15 | XR_ITS ---
WS: [id number] RIGHT FOOT: 3 VIEW(S) TECHNIQUE: AP, oblique and lateral. HISTORY: hematoma of R foot COMPARISON: None available. No acute fracture or dislocation. Normal tarsal/metatarsal alignment. Moderate arthritis at the first metatarsophalangeal joint. Large area of soft tissue edema over the lateral foot extends over length of 8.8 cm. There is also ov erlying bandage material. Consistent with a large soft tissue ulceration with edema. Cortex of the ad jacent fifth toe is intact. No radiographic evidence for osteomyelitis. XR/XR foot RT min 3V* 19006 IMPRESSION: Large soft tissue ulceration over the lateral foot measures 8.8 cm in length. N o osteomyelitis appreciated.
== END 2020-07-30 10:59 | disposition home or self-care (01) ==
LOC: RADWPI 11:04
PROVIDERS: Family Provider Registered Nurse; PCP Registered Nurse; Visit Provider Emergency Medicine
DX: S90.31XA Contusion of right foot, initial encounter (principal); X58.XXXA Exposure to other specified factors, initial encounter; L97.519 Non-pressure chronic ulcer of other part of right foot with unspecified severity
CPT/HCPCS: 73630

== ENCOUNTER 2020-08-04 10:32 | Outpatient (CLI) | payer MEDICARE, BC, SELFPAY | END 2020-08-04 10:33 | disposition home or self-care (01) | LOC: WOUND 10:33 | PROVIDERS: Family Provider Registered Nurse; PCP Registered Nurse; Visit Provider Emergency Medicine | DX: L97.512 Non-pressure chronic ulcer of other part of right foot with fat layer exposed (principal) | CPT/HCPCS: 11042 ==

== ENCOUNTER 2020-08-10 09:40 | Outpatient (CLI) | payer MEDICARE, BC, SELFPAY | END 2020-08-10 09:41 | disposition home or self-care (01) | LOC: WOUND 09:41 | PROVIDERS: Family Provider Registered Nurse; PCP Registered Nurse; Visit Provider Thoracic Surgery (Cardiothoracic Vascular Surgery) | DX: L97.512 Non-pressure chronic ulcer of other part of right foot with fat layer exposed (principal) | CPT/HCPCS: 11042 ==

== ENCOUNTER 2020-08-13 12:08 | Outpatient (CLI) | payer MEDICARE, BC, SELFPAY ==
--- NOTE | 2020-08-13 12:13 | USCV_ITS ---
Alyse Ang Age: 80 Gender: F : 1940 Exam Date: 08/13/2020 12:34 Ordering Phys: Miley Calzada DO Technologist: Latrell Overton Exam Location: [place] Indication: HISTORY: Ulcers. PROCEDURES: Bilateral duplex Venous Insufficiency study of the Deep and Superficial systems was carried out according to normal protocol with the patient in supine positon for deep system and dependent position for the superficial system. FINDINGS: All deep veins demonstrated compressibility without evidence of intraluminal thrombus or increased echogenicity. Spectral analysis of Doppler signals demonstrates normal response to compression maneuvers indicating patency without obstruction. Reflux determinations were made with the patient in the dependent position, the weight being on the contralateral leg. Vein measurements and reflux times are listed below were applicable. No notable reflux was seen at this time. LARGE BAKERS CYST IN LT KNEE. Echolucent area in the popliteal region CONCLUSIONS No evidence of DVT in the above-mentioned identifiable veins. No significant venous reflux bilaterally in the above-mentioned veins. Normal venous dimensions bilaterally. The venous diameter and depth on the surface are as mentioned above Dr Flavia Graham MD [facility] (Electronically Signed) Final Date: 13 August 2020 14:10 S
== END 2020-08-13 12:09 | disposition home or self-care (01) ==
LOC: US 12:10
PROVIDERS: PCP Registered Nurse; Visit Provider Emergency Medicine
DX: M79.604 Pain in right leg (principal); M79.605 Pain in left leg; L53.9 Erythematous condition, unspecified; L97.929 Non-pressure chronic ulcer of unspecified part of left lower leg with unspecified severity; L97.919 Non-pressure chronic ulcer of unspecified part of right lower leg with unspecified severity
CPT/HCPCS: 93970

== ENCOUNTER 2020-08-16 10:22 | Outpatient (CLI) | payer MEDICARE, BC, SELFPAY ==
--- NOTE | 2020-08-16 10:26 | USCV_ITS ---
Alyse Ang Age: 80 Gender: F : 1940 Exam Date: 08/16/2020 10:32 Ordering Phys: Miley Calzada DO Technologist: [place]am [place] [facility] Indication: non healing ulcer RIGHT LEFT Brachial 127.00 mmHg Brachial 132.00 mmHg Pressure (mmHg) Waveform Pressure (mmHg) Waveform 148.00 Above Knee 158.00 139.00 Below Knee 135.00 141.00 TRANSPORTATION MAINTENANCE OPERATOR 152.00 136.00 DPA 135.00 1.07 Ankle/Brachial Index 1.15 117.00 Pre-Exercise Toe Pressure 102.00 0.89 Pre-Exercise Toe/Brachial Index 0.77 FINDINGS Normal resting ABIs bilaterally Normal resting TBIs bilaterally The PVR waveforms showing blunting of dicrotic notch bilaterally CONCLUSIONS No evidence of any significant arterial obstruction, based on the above findings. Dr Flavia Graham MD [facility] (Electronically Signed) Final Date: 16 August 2020 17:41 S
== END 2020-08-16 10:23 | disposition home or self-care (01) ==
LOC: US 10:24
PROVIDERS: PCP Registered Nurse; Visit Provider Emergency Medicine
DX: M79.604 Pain in right leg (principal); M79.605 Pain in left leg; L53.9 Erythematous condition, unspecified; L97.929 Non-pressure chronic ulcer of unspecified part of left lower leg with unspecified severity; L97.919 Non-pressure chronic ulcer of unspecified part of right lower leg with unspecified severity
CPT/HCPCS: 93923

== ENCOUNTER 2020-08-17 07:53 | Outpatient (CLI) | payer MEDICARE, BC, SELFPAY ==
--- NOTE | 2020-08-17 07:55 | NM_ITS ---
WS: [id number] THREE-PHASE BONE SCAN HISTORY: PAIN/REDNESS/NONHEALING ULCER COMPARISON: 07/30/2020. 4 radiograph. Patient is is injected with 24.7 mCi Tc99m HDP intravenously. Immediate angiographic phase imaging is performed over the area of concern. Static blood pool imaging also performed. Two-hour whole-body sc intigrams performed in anterior and posterior projections. Additional large field of view imaging sub mitted as necessary. 3 phase bone scan is centered over the feet. Evaluate RIGHT lateral foot for possible osteomyelitis. There is very minimal hyperemia over the lateral RIGHT foot and increased blood pool uptake at the le shahzad of the proximal and mid fifth metatarsal. This is very subtle. On the delayed imaging there is al so very subtle increased uptake in the proximal fifth metatarsal. Mild arthritic changes at the first metatarsophalangeal joints and at the glenohumeral joints, AC phani nts and SC joints. Additional degenerative changes in the wrists and hands, knees and ankles. Normal soft tissue uptake. Thoracolumbar scoliosis. NM/NM bone 3 phase 26342 IMPRESSION: 1. Very minimal changes suspicious for osteomyelitis involving the proximal to mid fifth metatarsal. This is also at the area of the greatest soft tissue khoa nges seen radiographically. 2. Multi joint osteoarthritis.
== END 2020-08-17 07:54 | disposition home or self-care (01) ==
LOC: NM 07:54
PROVIDERS: PCP Registered Nurse; Visit Provider Emergency Medicine
DX: R52 Pain, unspecified (principal); L53.9 Erythematous condition, unspecified; L97.519 Non-pressure chronic ulcer of other part of right foot with unspecified severity
CPT/HCPCS: 11042; 78315; A9561

== ENCOUNTER 2020-08-17 08:52 | Outpatient (CLI) | payer MEDICARE, BC, SELFPAY | END 2020-08-17 08:53 | disposition home or self-care (01) | LOC: WOUND 08:55 | PROVIDERS: PCP Registered Nurse; Visit Provider Thoracic Surgery (Cardiothoracic Vascular Surgery) | DX: I96 Gangrene, not elsewhere classified (principal); L97.512 Non-pressure chronic ulcer of other part of right foot with fat layer exposed; M79.604 Pain in right leg; M79.605 Pain in left leg; L53.9 Erythematous condition, unspecified; L97.929 Non-pressure chronic ulcer of unspecified part of left lower leg with unspecified severity; L97.919 Non-pressure chronic ulcer of unspecified part of right lower leg with unspecified severity | CPT/HCPCS: 11042 ==

== ENCOUNTER 2020-08-25 14:42 | Outpatient (CLI) | payer MEDICARE, BC, SELFPAY | END 2020-08-25 14:43 | disposition home or self-care (01) | LOC: WOUND 14:43 | PROVIDERS: PCP Registered Nurse; Visit Provider Thoracic Surgery (Cardiothoracic Vascular Surgery) | DX: L97.512 Non-pressure chronic ulcer of other part of right foot with fat layer exposed (principal) | CPT/HCPCS: 11042 ==

== ENCOUNTER 2020-08-31 10:12 | Outpatient (CLI) | payer MEDICARE, BC, SELFPAY | END 2020-08-31 10:13 | disposition home or self-care (01) | LOC: WOUND 10:16 | PROVIDERS: PCP Registered Nurse; Visit Provider Thoracic Surgery (Cardiothoracic Vascular Surgery) | DX: L97.512 Non-pressure chronic ulcer of other part of right foot with fat layer exposed (principal) | CPT/HCPCS: 11042 ==

== ENCOUNTER 2020-09-14 08:36 | Outpatient (CLI) | payer MEDICARE, BC, SELFPAY | END 2020-09-14 08:37 | disposition home or self-care (01) | LOC: WOUND 08:37 | PROVIDERS: PCP Registered Nurse; Visit Provider Thoracic Surgery (Cardiothoracic Vascular Surgery) | DX: L97.512 Non-pressure chronic ulcer of other part of right foot with fat layer exposed (principal) | CPT/HCPCS: 11042 ==

== ENCOUNTER 2020-09-21 09:31 | Outpatient (CLI) | payer MEDICARE, BC, SELFPAY | END 2020-09-21 09:32 | disposition home or self-care (01) | LOC: WOUND 09:32 | PROVIDERS: PCP Registered Nurse; Visit Provider Thoracic Surgery (Cardiothoracic Vascular Surgery) | DX: L97.512 Non-pressure chronic ulcer of other part of right foot with fat layer exposed (principal) | CPT/HCPCS: 11042 ==

== ENCOUNTER 2020-09-28 09:08 | Outpatient (CLI) | payer MEDICARE, BC, SELFPAY | END 2020-09-28 09:09 | disposition home or self-care (01) | LOC: WOUND 09:10 | PROVIDERS: PCP Registered Nurse; Visit Provider Thoracic Surgery (Cardiothoracic Vascular Surgery) | DX: L97.512 Non-pressure chronic ulcer of other part of right foot with fat layer exposed (principal) | CPT/HCPCS: 11042 ==

== ENCOUNTER 2020-10-12 08:47 | Outpatient (CLI) | payer MEDICARE, BC, SELFPAY | END 2020-10-12 08:48 | disposition home or self-care (01) | LOC: WOUND 08:48 | PROVIDERS: PCP Registered Nurse; Visit Provider Nurse Practitioner Family | DX: Z09 Encounter for follow-up examination after completed treatment for conditions other than malignant neoplasm (principal) | CPT/HCPCS: 99212; 99214 ==

== ENCOUNTER → 2021-03-23 11:30 | Outpatient (BNVA) | payer MEDICARE, BC, SELFPAY | PROVIDERS: PCP Registered Nurse; Visit Provider Registered Nurse | DX: I10 Essential (primary) hypertension (principal); E78.5 Hyperlipidemia, unspecified; J41.0 Simple chronic bronchitis; J18.9 Pneumonia, unspecified organism | CPT/HCPCS: 80053; 80061; 85025 ==

== ENCOUNTER → 2021-04-12 11:03 | Outpatient (BNVA) | payer MEDICARE, BC, SELFPAY | PROVIDERS: PCP Registered Nurse; Visit Provider Registered Nurse | DX: J18.9 Pneumonia, unspecified organism (principal) | CPT/HCPCS: 85025 ==

== ENCOUNTER → 2021-06-06 14:23 | Outpatient (BNVA) | payer MEDICARE, BC, SELFPAY | PROVIDERS: PCP Registered Nurse; Visit Provider Registered Nurse | DX: J06.9 Acute upper respiratory infection, unspecified; Z20.822 Contact with and (suspected) exposure to COVID-19 | CPT/HCPCS: 85025; 87635 ==

== ENCOUNTER → 2022-02-07 09:49 | Outpatient (BNVA) | payer MEDICARE, BC, SELFPAY | PROVIDERS: PCP Registered Nurse; Visit Provider Internal Medicine Cardiovascular Disease | DX: I25.10 Atherosclerotic heart disease of native coronary artery without angina pectoris (principal); I10 Essential (primary) hypertension; I48.3 Typical atrial flutter | CPT/HCPCS: 99214 ==

== ENCOUNTER → 2022-02-23 08:09 | Outpatient (BNVA) | payer MEDICARE, BC, SELFPAY | PROVIDERS: PCP Registered Nurse; Visit Provider Internal Medicine Critical Care Medicine | DX: J41.0 Simple chronic bronchitis (principal); R91.8 Other nonspecific abnormal finding of lung field; J96.11 Chronic respiratory failure with hypoxia; Z87.891 Personal history of nicotine dependence; E78.5 Hyperlipidemia, unspecified; I10 Essential (primary) hypertension | CPT/HCPCS: 99204; 99205 ==

== ENCOUNTER → 2022-03-07 05:42 | Day surgery (SDC) | payer MEDICARE, BC, SELFPAY ==
[2022-03-03 12:43] VITALS: BMI 23.3
[2022-03-07] VITALS (10 sets, daily range): BP systolic 66–114; BP diastolic 45–71; PULSE 61–72; RESP 16–22; TEMP 36.1–36.3; O2SAT 90–96
[2022-03-07] MEDS: sodium chloride 0.9% 1,000 ML 30 ML IV (06:17)
--- NOTE | 2022-03-07 06:21 | ECG_ITS ---
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 Measurements Intervals [place] Rate: 58 P: IN: QRS: 27 QRSD: 94 T: 21 QT: 427 QTc: 420 Interpretive Statements ATRIAL FIBRILLATION WITH SLOW VENTRICULAR RESPONSE INCOMPLETE RIGHT BUNDLE BRANCH BLOCK ST DEVIATION AND MODERATE T-WAVE ABNORMALITY, CONSIDER LATERAL ISCHEMIA Compared to ECG 01/21/2020 00:09:17 Incomplete right bundle-branch block now present Atrial flutter no longer present T-wave abnormality still present Possible ischemia still present Electronically Signed On 03-07-2022 7:31:11 CDT by Manjula Virgen M.D. [id number]
--- NOTE | 2022-03-07 06:58 | ANES.PREANE2 ---
Pre-Anesthetic Assessment Height/Weight: Height 1.6 m Weight 59.874 kg Temp Pulse Resp BP Pulse Ox 97 F L 70 22 H 114/63 93 03/07/22 06:06 03/07/22 06:06 03/07/22 06:06 03/07/22 06:06 03/07/22 06:06 Preop Diagnosis: Suspected lung cancer Operation Date: 03/07/22 07:00 Proposed Procedures p ebus poss transbronchial biopsy [id number](Not Applicable) - Melody Ricks MD Familial anesthetic complications: None Was Beta Sharlene taken within 24 hours: Yes Was Clonidine taken within 24 hours: N/A Last intake: Intake Last Liquid Date 03/06/22 Last Liquid Time 20:00 Last Solid Date 03/06/22 Last Solid Time 20:00 Social Tobacco and No alcohol Exam alert, oriented x 3 and regular rate & rhythm rhonchi Airway Submandibular: within normal limits Cervical ROM: within normal limits Mallampati: Class II Dentition: false Pulmonary Chronic Obstructive Pulmonary Disease CV/HEM Atrial Fibrillation (rate controlled), Coronary Artery Disease (CABG) and Hypertension Metabolic Hyperlipidemia Anesthetic Plan ASA status: 3 Anesthesia: General Medications/Allergies Home Medications Medication Instructions Recorded Confirmed Last Taken Type aspirin 81 mg tablet,delayed 81 mg PO DAILY #90 tab 03/29/20 03/03/22 03/06/22 Rx release levalbuterol HCl 0.63 mg/3 mL 0.63 mg (3 mL) INHALATION TID PRN 12/13/21 03/03/22 03/07/22 Rx solution for nebulization #75 ml levalbuterol tartrate 45 2 inh INHALATION Q6H PRN 02/07/22 03/03/22 03/07/22 History mcg/actuation aerosol inhaler fluticasone fur. 100 mcg-umeclid 1 inh INHALATION DAILY 60 Days #60 02/23/22 03/03/22 03/07/22 Rx 62.5 mcg-vilant 25 mcg ea inhalat.powder (Trelegy Ellipta) budesonide-formoterol HFA 160 2 puff INHALATION Q12H 30 Days 02/24/22 03/03/22 03/07/22 Rx mcg-4.5 mcg/actuation aerosol #10.2 g inhaler (Symbicort) tiotropium bromide 18 mcg capsule 1 cap INHALATION DAILY 30 Days #60 02/24/22 03/03/22 03/07/22 Rx with inhalation device (Spiriva inh with HandiHaler) amlodipine 10 mg tablet 10 mg PO DAILY 03/03/22 03/03/22 03/07/22 History hydrochlorothiazide 25 mg tablet 25 mg PO DAILY 03/03/22 03/03/22 03/06/22 History lisinopril 10 mg tablet 10 mg PO DAILY 03/03/22 03/03/22 03/06/22 History metoprolol tartrate 25 mg tablet 25 mg PO BID 03/03/22 03/06/22 03/07/22 History rosuvastatin 20 mg tablet 20 mg PO DAILY 03/03/22 03/03/22 03/06/22 History Allergies Allergy/AdvReac Type Severity Reaction Status Date / Time cortisone Allergy Unknown Verified 02/23/22 08:22 doxycycline Allergy ADR-Itching Verified 02/23/22 08:22 Current Medications Generic Name Dose Route Start Last Admin Trade Name Freq PRN Reason Stop Dose Admin Sodium Chloride 1,000 mls @ 30 mls/hr 03/07/22 06:00 03/07/22 06:17 Sodium Chloride 0.9% IV 03/08/22 05:59 30 mls/hr .Q24H GARRICK Administration PFSH Anesthesia Medical History Atrial flutter COPD (chronic obstructive pulmonary disease) Coronary disease Dyslipidemia Essential hypertension Former smoker Hypertension Surgical History S/P CABG (coronary artery bypass graft) HERNANDEZ to LAD and saphenous vein graft to posterior descending artery of right coronary Family History Other Hypertension Denies family history of Diabetes Dementia Cancer Social History (Updated 02/23/22 @ 08:34 by Cassidy Green LPN) Smoking and tobacco status: former smoker Quit status (tobacco): has quit using tobacco Year quit tobacco: 2019 Former quit date comment: 1 ppd X 58 years, started at age 23 Alcohol intake: never Housing: Assisted Living Facility Data Anesthesia : 03/07/22 06:46 BMP 03/07/22 06:14 Sodium Cancelled Potassium Cancelled Chloride Cancelled Carbon Dioxide Cancelled BUN Cancelled Creatinine Cancelled Glucose Cancelled Calcium Cancelled Cardiac Studies: Echocardiogram Ultrasound 01/21/20
--- NOTE | 2022-03-07 07:00 | W.PM.OPSUD ---
Surgery/Procedure H&P Update DATE OF PROCEDURE: March 07, 2022 DATE H&P PERFORMED: 02/23/22 PREOP DIAGNOSIS: Suspected lung cancer PRIMARY INDICATION FOR PROCEDURE: Lung nodule and hilar and mediastinal lymphadenopathy suspicious for lung cancer PLANNED PROCEDURE: Bronchoscopy inspection of the airway, possible endobronchial biopsy, bronchoalveolar lavage, endobronchial ultrasound with transbronchial needle aspiration of lymph nodes and control of bleeding. Operation Date: 03/07/22 07:00 Proposed Procedures p ebus poss transbronchial biopsy [id number](Not Applicable) - Biplab MD Millicent
[2022-03-07 07:20] LABS: Anion Gap 12.9 (5-19); Blood Urea Nitrogen 11 mg/dL (8-23); Carbon Dioxide 28 mmol/L (22-29); Chloride 101 mmol/L (98-107); Glucose 111 mg/dL (65-115); Osmolality Calculated 286 mOsm/kg (285-295); Potassium 3.9 mmol/L (3.5-5.1); Sodium 138 mmol/L (136-145)
[2022-03-07] MEDS: lidocaine 1% INJ 20 mL XX (07:40)
--- NOTE | 2022-03-07 08:38 | PM.OP ---
Operative Report Date of procedure: March 07, 2022 Pre-op diagnosis: Preop Diagnosis Suspected lung cancer Brief History: This is an 81-year-old lady with recently identified lung nodule with PET positivity and PET positive metastatic hilar lymphadenopathy coming in for bronchoscopic evaluation for possible lung cancer. Procedure: Name of the procedure: Bronchoscopy with inspection of the airway, endobronchial biopsies, bronchial wash, endobronchial ultrasound-guided transbronchial needle aspiration of lymph nodes and control of bleeding. Indication: Suspected lung cancer Anesthesia: General anesthesia. Local anesthesia: The vocal cords, trachea, janusz in the right and left mainstem bronchi were anesthetized with 1% lidocaine, 7 mL. Description of the procedure: The procedure was explained to the patient and the consent was obtained. The patient was brought to the OR. The patient underwent laryngeal mask airway placement for general anesthesia. Following induction of general anesthesia, the bronchoscope was advanced through the LMA. The vocal cords appeared to be normal. The vocal cords were anesthetized with 1% lidocaine, 3 mL. The bronchoscope was then introduced through the vocal cords. The upper and lower trachea appeared to be normal. The janusz, right and left mainstem bronchi anesthetized with 1% lidocaine. A total of 4 cc was used. The janusz appeared to be sharp. There was excessive dynamic airway compression involving both mainstem bronchi. In a systematic manner bilateral bronchial tree was then examined. The bronchoscope was advanced into the left mainstem bronchus. The left upper lobe, lingula and left lower lobe bronchi were examined up to the third subsegmental level and no abnormalities were identified. The bronchoscope was then introduced into the right mainstem bronchus. The right upper lobe, and right middle lobe bronchi were examined up to the third subsegmental level and no abnormalities were identified. There was a large fungating growth completely occluding the entrance to the right lower lobe bronchus. I could not go beyond this lesion. There was mild mucus throughout the airways. Endobronchial biopsies were obtained from the right lower lobe endobronchial lesion. Multiple samples were obtained. Bronchial wash was performed from the same area. A total of 30 cc of fluid was administered, the fluid return was 15 mL. The endobronchial ultrasound was introduced through the LMA. Lymphadenopathy involving the subcarinal area and right paratracheal and hilar area was noted. Fine-needle aspiration was performed from station 7 and station 10 R. Samples: 1. The bronchial wash specimen was sent for cytology. 2. The endobronchial biopsies are sent for histopathology. 3. The transbronchial needle aspiration of the aforementioned lymph node groups were sent for histopathology. Complications: There was no immediate complications. There was minimal bleeding after the biopsy.
--- NOTE | 2022-03-07 09:33 | SUR.PHASEI ---
Respiratory came and gave pt an albuterol tx per anesthesia.
--- NOTE | 2022-03-07 11:46 | ANE.PACU2 ---
Inpatient post-anesthesia follow up: Airway intact: Yes Vital signs: Temperature 97.4 F Pulse Rate 71 Respiratory Rate 18 Blood Pressure 96/71 Pulse Oximetry 94 Oxygen Delivery Me thod Simple Mask Oxygen Flow Rate 3 Fraction of Inspir ed Oxygen Hydration adequate: Yes Nausea and vomiting: No Pain level: 2 Mental status: Baseline
[2022-03-10 11:36] LABS: Miscellaneous Test See Scanned Lab Rpt
[2022-04-04 10:03] LABS: Miscellaneous Test See Scanned Lab Rpt
== END | disposition home or self-care (01) ==
PROVIDERS: PCP Registered Nurse; Visit Provider Internal Medicine Critical Care Medicine
PROC: BB4BZZZ Ultrasonography of Pleura (ICD-10-PCS; principal; 2022-03-07 07:00)
DX: C34.90 Malignant neoplasm of unspecified part of unspecified bronchus or lung (principal); J44.9 Chronic obstructive pulmonary disease, unspecified; I48.91 Unspecified atrial fibrillation; I25.10 Atherosclerotic heart disease of native coronary artery without angina pectoris; Z95.1 Presence of aortocoronary bypass graft; I10 Essential (primary) hypertension; E78.5 Hyperlipidemia, unspecified; Z79.82 Long term (current) use of aspirin; Z87.891 Personal history of nicotine dependence; Z82.49 Family history of ischemic heart disease and other diseases of the circulatory system
CPT/HCPCS: 31624; 31625; 31652; 36415; 80048; 80503; 88108; 88305; 88312; 88313; 88342; 93005; J0330; J2370; J2704; J3010; J7030

== ENCOUNTER 2022-03-15 08:14 | Outpatient (CLI) | payer MEDICARE, BC, SELFPAY ==
[2022-03-15 10:26] LABS: Basophils % 0.2 %; Eosinophils % 0.3 %; Hemoglobin 10.8 g/dL (11.5-15.3); Lymphocytes # 1.6 10^3/uL (0.8-4.8); Lymphocytes % 16.6 %; Mean Corpuscular HGB Conc 29.2 g/dL (30.0-36.0); Mean Corpuscular Hemoglobin 24.2 pg (28.0-34.0); Monocytes # 0.5 10^3/uL (0.2-0.9); Monocytes % 5.4 %; Neutrophils # 7.52 10^3/uL (1.8-7.7); Neutrophils % 77.1 %; Nucleated Red Blood Cells % 0 %; Platelet Count 256 10^3/cmm (130-400); Red Blood Count 4.46 10^6/uL (4.1-5.3); Red Cell Distribution Width 15.2 % (12.1-15.1); White Blood Count 9.8 10^3/uL (4.0-10.0)
[2022-03-15 10:53] LABS: Alanine Aminotransferase 16 U/L (0-33); Alkaline Phosphatase 124 IU/L (35-105); Anion Gap 16.3 (5-19); Aspartate Amino Transferase 19 U/L (0-32); Blood Urea Nitrogen 13 mg/dL (8-23); Carbon Dioxide 26 mmol/L (22-29); Chloride 102 mmol/L (98-107); Glucose 136 mg/dL (65-115); Osmolality Calculated 292 mOsm/kg (285-295); Potassium 4.3 mmol/L (3.5-5.1); Sodium 140 mmol/L (136-145); Total Bilirubin 0.4 mg/dL (0.15-1.2)
--- NOTE | 2022-03-15 11:10 | N.ONRAD NP_ITS ---
Radiation Oncology Consultation Patient Name: Alyse Ang Date of : 1940 Date of Service: 03/15/2022 Attending Physician: Gallito Clayton M.D. Alyse Ang was seen in consultation this morning at the request of Wiley Gant M.D. for consideration of thoracic radiotherapy in the management of a recently diagnosed non-small cell lung cancer. She was evaluated at the [facility] Emergency Department in [place], [place] for dyspnea. A thoracic CT performed on February 15, 2022 described spiculated masses measuring 2.3 cm x 1.7 cm of the right perihilar region and 1.3 cm x 2.3 cm in the right upper-lobe, and right hilar adenopathy. Post-obstructive atelectasis was also present. A PET scan (independently reviewed in [facility]) ordered on February 25, 2022 demonstrated a 1.7 cm x 1.9 cm perihilar right lower lobe opacity with a maximum SUV of 3.9, a 2.2 cm right hilar lymph node (SUV 5.2), and equivocal activity within a subcarinal lymph node. There was no distant metastatic disease. A bronchoscopy with an endobronchial ultrasound-guided biopsy was performed on March 07, 2022 by Adrianna Ricks M.D. Intraoperative findings reported a large mass occluding the right lower lobe bronchus. Biopsies obtained diagnosed a non-small cell carcinoma favoring a clear cell variant within the right lower lobe and subcarinal specimens. The patient was evaluated for definitive thoracic radiotherapy. I discussed with Ms. Ang the AJCC clinical stage IIIA (T1bN2) lung cancer corresponding to her disease. I also explained the National Comprehensive Cancer Network Guidelines recommending concurrent chemoradiotherapy for the management of locally advanced lung cancer and reviewed the classic study, RTOG 9410, comparing sequential versus concurrent chemoradiotherapy that demonstrated an overall survival advantage for the concurrent chemoradiotherapy regimen which established the standard of care. I would endorse a six week course of thoracic radiotherapy. Prior to treatment, I will order MRI of the brain to complete staging and pulmonary function testing. A computed tomographic radiotherapy planning scan with contrast in the treatment position will be acquired and co-registered to the patient's staging PET scan to identify the gross tumor volumes. The potential toxicities of thoracic radiotherapy were reviewed. The patient has verbalized understanding would like to proceed as recommended. The patient???s treatment plan was discussed with Wiley Gatn M.D. Signed by: Gallito Clayton 03/15/2022 11:08:59 AM
--- NOTE | 2022-03-15 12:02 | ONC CON_ITS ---
Dr. Gant New Patient Note Patient: Alyse Ang < Unit #: [id number]: 1940 Dicatated By: Wiley Gant M.D.Date of Visit: Mar 15, 2022 Onc MED New Patient/Consult Referring Physician: Dr. VANDANA RICKS M.D. Chief Complaint: Lung cancer. 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 She has advanced COPD. She was diagnosed with COVID 19 virus infection in May 2021 and she was treated for pneumonia in November or December of this year. On 02/15/2022 she was seen in the emergency room in [place] with complaints of increased shortness of breath. Her CT pulmonary angiogram reportedly showed right upper and right lower lobe pulmonary nodules. She had consultation with Dr. Ricks on 02/23/2022. Her PET/CT on 02/25/2022 showed a poorly defined perihilar right lower lobe opacity measuring 1.7 x 1.9 cm with SUV 3.9, consistent with malignancy. There was more prominent activity in a 2.2 cm right hilar lymph node, SUV 5.2. Low-grade, equivocal activity was noted in a subcarinal lymph node. On 03/07/2022 she underwent bronchoscopy/EBUS. The bronchoscopy showed a large fungating lesion which was completely occluding the entrance to the right lower lobe bronchus. Endobronchial biopsy showed non-small cell carcinoma favoring a clear cell variant. The EBUS did show adenopathy in the subcarinal, right paratracheal, and right hilar areas. FNA biopsy of the station 7 lymph node showed metastatic non-small cell carcinoma favoring clear-cell variant. FNA biopsy of station 10 R node showed rare atypical clusters in a background of benign lymphoid tissue. She is seen now for further management of the lung cancer. She says she is feeling better now than she was, though she does have limited activity due to her shortness of breath. At this point she is still doing some light work. ECOG score is 1. She has good appetite. Her weight has been stable. She has no fever or night sweats. She has not had sore mouth or throat. She does have chronic cough and she reports having had hemoptysis for 4 days following the bronchoscopy procedure. She is on continuous oxygen, and she is short of breath with any activity. She does not complain of chest pain. She has no GI/ complaints other than a little bit of heartburn. She has joint pain, mainly in her hands and in her right knee. She does not complain of headache or dizziness, and she has no focal neurologic symptoms. Past Medical History: Her medical history includes borderline diabetes, chronic obstructive pulmonary disease, coronary artery disease, dyslipidemia, and hypertension. She has a history of atrial flutter, and she has a history of COVID-19 virus infection in 2020. Past Surgical History: Her surgical/procedural history includes bilateral cataract excisions, partial hysterectomy, coronary artery bypass in 1999, and partial colectomy for premalignant tumor in 1986. Medications: amLODIPine Besylate Tablet Oral, Aspirin 1 Tablet (of 81 mg) Tablet, enteric coated Oral daily, Egahgzqhgdg-Azpfrccxu-Imwmgq 1 Inhalation (of 100-62.5-25 mcg/inh) Aerosol Powder, Breath Activated Inhalation daily, Furosemide 1 Tablet (of 40 mg) Oral daily, hydroCHLOROthiazide Tablet Oral, Levalbuterol HCl (0.63 mg/3mL) Nebulization solution Inhalation t.i.d. PRN, Levalbuterol Tartrate 2 Inhalation (of 45 mcg/act) Aerosol Inhalation q 6 hours PRN, Lisinopril Tablet Oral, Metoprolol Tartrate Tablet Oral b.i.d., Rosuvastatin Calcium Tablet Oral daily Allergies: cortisone and Doxycycline. Social History: Ms. Ang is . She has a history of smoking a pack of cigarettes daily beginning in her early 20s. She quit smoking 2 years ago. She does not drink alcohol. Family History: Father of pancreatic cancer at age 62. Mother at age 83 with congestive heart failure. A brother and a sister both of lung cancer. Another brother of heart attack. She has a grandson who was successfully treated for medulloblastoma. Review Of Symptoms: Constitutional - She has limited activity due to shortness of breath. She is still able to do some light work, but it is declining. She has good appetite. She has no fever or night sweats. ECOG score is 1, Eyes - She has had cataract excisions, ENMT - She has hearing loss. She has sinus congestion/drainage. No mouth sores. No sore throat or difficulty swallowing, Hematologic/Lymphatic - She has easy bruising, Respiratory - She has shortness of breath and she has chronic cough. She had hemoptysis for 4 days following her bronchoscopy, Cardiovascular - No angina pain. She has history of atrial flutter and she has palpitations, Gastrointestinal - No nausea or vomiting. She has a little bit of heartburn. No diarrhea or constipation. No blood in the stool or black stools, Genitourinary (F) - No dysuria or hematuria. No urinary frequency. No urgency or incontinence, Musculoskeletal - She has joint pain, mainly in her hands and in the right knee, Integumentary - No skin rash or other skin changes, Neurologic - No headache or dizziness. No numbness or tingling. No other focal neurologic symptoms, Psychiatric - No anxiety or depression. No insomnia. Vital Signs: Performed on Mar 15, 2022 08:40: 0, 0, 24.02, 1.64 sq.m, 63 in, 94 % (LOW), 72 /min, 20 /min, 114/66 mm(hg), 97.8 F (LOW), and 135.6 lbs (HIGH). Physical Examination: Constitutional - She appears chronically ill, and she appears short of breath with effort, Eyes - Sclerae nonicteric. Conjunctivae clear, ENMT - No lesions noted in the oral cavity, Neck - No mass or thyromegaly, Hematologic/Lymphatic - No cervical, clavicular, or axillary adenopathy, Respiratory - Lungs show markedly diminished air movement bilaterally, Cardiovascular - Heart rhythm is regular. There is no murmur, gallop, or rub noted, Abdomen - Soft and non-tender. Liver and spleen are not enlarged. There is no abdominal mass or ascites noted and there is no inguinal adenopathy, Back/Spine - No spine or CVA tenderness noted, Extremities - No edema. Dorsalis pedis pulses are palpable bilaterally. There are purpuric lesions on both arms, Integumentary - No rashes. No suspicious skin lesions noted, Neurologic - No focal neurologic deficits noted. Problem List: 1. Non-small cell carcinoma involving the lower lobe of the right lung, stage IIIA (T1b, N2, M0). 2. Severe COPD. 3. Hypertension. 4. Dyslipidemia. 5. Coronary artery disease with previous coronary artery bypass. 6. History of atrial flutter. 7. Borderline diabetes. 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 There was biopsy-proven involvement in a station 7 lymph node but no evidence of other metastatic involvement by PET/CT, thus stage IIIA (T1b, N2, M0). There was an additional right upper lobe pulmonary nodule noted on the CT pulmonary angiogram, but that appears to have shown significant resolution on the subsequent PET/CT, and it was not FDG avid. The PET/CT findings and images were reviewed with the patient. I also reviewed the pathology results, and we discussed the clinical implications. She has non-small cell carcinoma involving the lower lobe of the right lung. There is biopsy proven involvement in the subcarinal lymph node, thus stage IIIA. She is aware that her disease is not operable, but as it does appear to be localized to the chest, the recommended treatment will be concurrent chemoradiation utilizing weekly carboplatin/paclitaxel for the chemosensitization. Depending on response, she would then potentially be eligible for maintenance imunotherapy. I reviewed anticipated side effects with the chemotherapy, which may include nausea/vomiting, alopecia, weakness/fatigue, low blood counts, and neuropathy, among others. She is aware that she will need to have a Port-A-Cath placed for the chemotherapy administration, I will get that scheduled. She also will need to complete staging with head MRI. She will see Dr. Clayton today for radiation oncology consultation. Treatment will be started as soon as radiation planning is completed and the Port-A-Cath is in place. Signed By: Wiley Gant M.D. <<Signature on File>>
== END 2022-03-15 08:15 | disposition home or self-care (01) ==
PROVIDERS: Radiology Radiation Oncology; PCP Registered Nurse; Visit Provider Internal Medicine Medical Oncology
DX: C34.31 Malignant neoplasm of lower lobe, right bronchus or lung (principal); Z87.891 Personal history of nicotine dependence
CPT/HCPCS: 80053; 85025; 99205

== ENCOUNTER 2022-03-16 10:33 | Outpatient (CLI) | payer MEDICARE, BC, SELFPAY ==
--- NOTE | 2022-03-16 13:02 | PFTS_ITS ---
Date of Study:03/16/22 Date of Dictation: 03/16/2022 MECHANICS: Postbronchodilator forced vital capacity (FVC) is reduced. Postbronchodilator FEV1 is severely reduced 41% FEV1/FVC is reduced There is no significant response to bronchodilators. FLOW VOLUME LOOP: Sloping of expiratory limb suggestive of severe airway obstruction LUNG VOLUMES: Total lung capacity (TLC) is reduced. Residual volume (RV) is normal. DIFFUSING CAPACITY FOR CARBON MONOXIDE: Severely reduced . INTERPRETATION: The spirometry consistent with severe obstructive ventilatory disease.? There is no significant response to bronchodilators.? Lung volumes suggestive of mild restriction. There is severe gas transfer defect. Constellation of findings suggestive of obstructive ventilatory disease is likely emphysema. Please correlate clinically. MTDD
== END 2022-03-16 10:34 | disposition home or self-care (01) ==
LOC: RT 10:34
PROVIDERS: PCP Registered Nurse; Visit Provider Radiology Radiation Oncology
DX: C34.31 Malignant neoplasm of lower lobe, right bronchus or lung (principal)
CPT/HCPCS: 94060; 94726; 94729; J7611

== ENCOUNTER → 2022-03-21 09:16 | Outpatient (BNVA) | payer MEDICARE, BC, SELFPAY | PROVIDERS: PCP Registered Nurse; Referring Provider Internal Medicine Medical Oncology; Visit Provider Surgery | DX: C34.91 Malignant neoplasm of unspecified part of right bronchus or lung (principal); Z95.828 Presence of other vascular implants and grafts | CPT/HCPCS: 99204 ==

== ENCOUNTER 2022-03-27 09:30 | Day surgery (SDC) | payer MEDICARE, BC, SELFPAY ==
[2022-03-24 12:05] VITALS: BMI 23.0
[2022-03-27] VITALS (7 sets, daily range): BP systolic 111–133; BP diastolic 64–87; PULSE 65–82; RESP 15–27; TEMP 36.6–36.9; O2SAT 91–95
--- NOTE | 2022-03-27 | SCC_ITS ---
Procedure done: 1. Placement of PowerPort in the left subclavian vein 2. Fluoroscopic guidance and interpretation for placement of catheter 10.4 seconds of fluoroscopic guidance, for a cumulative dose of 1.56 mGy, was provided to Dr. Neely by the radiology department. C-arm images of the chest were saved for the patient's permanent record. [facility]
--- NOTE | 2022-03-27 09:38 | P.HP_ITS ---
Same Day Surgery H&P Indication for Procedure/HPI DATE OF PROCEDURE: March 27, 2022 CHIEF COMPLAINT/INDICATIONFOR SURGICAL PROCEDURE: port placement PREOP DIAGNOSIS: lung ca PLANNED PROCEDURE: Operation Date: 03/27/22 11:15 Proposed Procedures p Portacath Placement 36311/c34.91(Not Applicable) - Wesly Neely MD Medications/Allergies* Home Medications Medication Instructions Recorded Confirmed Type lisinopril 10 mg tablet 10 mg PO DAILY 03/03/22 03/24/22 History metoprolol tartrate 25 mg tablet 25 mg PO BID 03/03/22 03/24/22 History rosuvastatin 20 mg tablet 20 mg PO DAILY 03/03/22 03/24/22 History amlodipine 10 mg tablet 10 mg PO DAILY 03/24/22 03/24/22 History budesonide-formoterol HFA 160 2 puff INHALATION Q12H PRN 03/24/22 03/24/22 History mcg-4.5 mcg/actuation aerosol inhaler (Symbicort) hydrochlorothiazide 25 mg tablet 25 mg PO DAILY 03/24/22 03/24/22 History Allergies/Adverse Reactions Allergy/AdvReac Type Severity Reaction Status Date / Time cortisone Allergy Unknown Verified 03/21/22 08:43 doxycycline Allergy ADR-Itching Verified 03/21/22 08:43 Pertinent History/Comorbid Conditions* Medical History (Updated 03/21/22 @ 09:44 by Wesly Neely MD) Atrial flutter Cancer of right lung COPD (chronic obstructive pulmonary disease) Coronary disease Dyslipidemia Essential hypertension Hypertension Surgical History (Updated 03/21/22 @ 09:44 by Wesly Neely MD) History of colon resection for benign mass History of colonoscopy History of colostomy reversed History of partial hysterectomy S/P CABG (coronary artery bypass graft) HERNANDEZ to LAD and saphenous vein graft to posterior descending artery of right coronary Family History (Updated 01/21/20 @ 00:12 by Domi Rodriguez MD) Hypertension Denies family history of Diabetes Dementia Cancer Social History Smoking and tobacco status: former smoker Quit status (tobacco): has quit using tobacco Year quit tobacco: 2019 Former quit date comment: 1 ppd X 58 years, started at age 23 Alcohol intake: never Housing: Assisted Living Facility Pertinent Exam Findings alert, oriented x 3 and regular rate & rhythm Recommendations Surgery/Procedure today Coding Level of Care Code Acute [employer] Counselor for Chg Fwd
[2022-03-27] MEDS: sodium chloride 0.9% 1,000 ML 30 ML IV (10:05)
--- NOTE | 2022-03-27 11:32 | ANES.PREANE2 ---
Pre-Anesthetic Assessment Height/Weight: Height 1.6 m Weight 58.967 kg Temp Pulse Resp BP Pulse Ox 97.9 F 82 15 133/80 95 03/27/22 09:51 03/27/22 09:51 03/27/22 09:51 03/27/22 09:51 03/27/22 09:51 Preop Diagnosis: lung ca Operation Date: 03/27/22 11:15 Proposed Procedures p Portacath Placement 36603/c34.91(Not Applicable) - Wesly Neely MD Familial anesthetic complications: None Was Beta Sharlene taken within 24 hours: Yes Was Clonidine taken within 24 hours: N/A Last intake: Intake Last Liquid Date 03/27/22 Last Liquid Time 06:00 Last Solid Date 03/26/22 Last Solid Time 20:00 Social No alcohol and No tobacco (h/o smoking) Exam alert, oriented x 3 and regular rate & rhythm Airway Submandibular: within normal limits Cervical ROM: within normal limits Mallampati: Class II Dentition: false Pulmonary Chronic Obstructive Pulmonary Disease Home O2, lung CA CV/HEM Atrial Fibrillation (flutter), Coronary Artery Disease (CABG) and Hypertension Metabolic Hyperlipidemia Anesthetic Plan ASA status: 3 Anesthesia: MAC Medications/Allergies Home Medications Medication Instructions Recorded Confirmed Last Taken Type aspirin 81 mg tablet,delayed 81 mg PO DAILY #90 tab 03/29/20 03/27/22 03/26/22 Rx release fluticasone fur. 100 mcg-umeclid 1 inh INHALATION DAILY 60 Days #60 02/23/22 03/27/22 03/27/22 Rx 62.5 mcg-vilant 25 mcg ea inhalat.powder (Trelegy Ellipta) tiotropium bromide 18 mcg capsule 1 cap INHALATION DAILY 30 Days #60 02/24/22 03/27/22 03/27/22 Rx with inhalation device (Spiriva inh with HandiHaler) lisinopril 10 mg tablet 10 mg PO DAILY 03/03/22 03/27/22 03/26/22 History metoprolol tartrate 25 mg tablet 25 mg PO BID 03/03/22 03/27/22 03/27/22 History rosuvastatin 20 mg tablet 20 mg PO DAILY 03/03/22 03/27/22 03/26/22 History amlodipine 10 mg tablet 10 mg PO DAILY 03/24/22 03/27/22 03/26/22 History budesonide-formoterol HFA 160 2 puff INHALATION Q12H PRN 03/24/22 03/27/22 03/27/22 History mcg-4.5 mcg/actuation aerosol inhaler (Symbicort) hydrochlorothiazide 25 mg tablet 25 mg PO DAILY 03/24/22 03/27/22 03/26/22 History Allergies Allergy/AdvReac Type Severity Reaction Status Date / Time cortisone Allergy Unknown Verified 03/21/22 08:43 doxycycline Allergy ADR-Itching Verified 03/21/22 08:43 Current Medications Generic Name Dose Route Start Last Admin Trade Name Freq PRN Reason Stop Dose Admin Sodium Chloride 1,000 mls @ 30 mls/hr 03/27/22 09:45 03/27/22 10:05 Sodium Chloride 0.9% IV 03/28/22 09:44 30 mls/hr .Q24H GARRICK Administration PFSH Anesthesia Medical History Atrial flutter Cancer of right lung COPD (chronic obstructive pulmonary disease) Coronary disease Dyslipidemia Essential hypertension Hypertension Surgical History History of colon resection for benign mass History of colonoscopy History of colostomy reversed History of partial hysterectomy S/P CABG (coronary artery bypass graft) HERNANDEZ to LAD and saphenous vein graft to posterior descending artery of right coronary Family History Other Hypertension Denies family history of Diabetes Dementia Cancer Social History Smoking and tobacco status: former smoker Quit status (tobacco): has quit using tobacco Year quit tobacco: 2019 Former quit date comment: 1 ppd X 58 years, started at age 23 Alcohol intake: never Housing: Assisted Living Facility Data Anesthesia Cardiac Studies: Echocardiogram Ultrasound 01/21/20
--- NOTE | 2022-03-27 11:43 | SC_ITS ---
WS: [id number] C-ARM RADIOGRAPHS CHEST; 3 IMAGES HISTORY: Placement of PowerPort in the left subclavian vein COMPARISON: None available. Intraoperative imaging during LEFT subclavian Mediport placement. Tip overlies the distal SVC. SC/C-arm FL for CVA [id number] IMPRESSION: Intraoperative imaging during LEFT subclavian Mediport placement.
[2022-03-27] MEDS: heparin, porcine 1,000 unit/mL INJ 10 mL 10000 UNIT IRRIGATION (13:35)
[2022-03-27] MEDS: lidocaine 1% INJ 20 mL INJECTION (13:48)
--- NOTE | 2022-03-27 13:53 | PM.OP ---
Operative Report Date of procedure: March 27, 2022 Pre-op diagnosis: Right lung cancer requiring central venous access for chemotherapy Post-op diagnosis: same Procedure done: 1. Placement of PowerPort in the left subclavian vein 2. Fluoroscopic guidance and interpretation for placement of catheter Pathology: none sent Surgeon: Wesly Neely Anesthesia: MAC Condition: stable Disposition: PACU Procedure: The patient was taken to the Operating Room and the chest and neck bilaterally were prepped and draped in a sterile manner after the antibiotic had been administered and shoulder rolls had been placed. A total of 10 mL of 1% lidocaine with 0.5% Marcaine was infiltrated under the clavicle on the left side at the site of the planned entry into the subclavian vein. An introducer needle was then used to access the subclavian vein under the clavicle and after withdrawing blood syringe was removed and a guidewire passed under fluoroscopy into the superior vena cava. The site of the planned port was then marked on the chest and a 15 blade was used to make a 3 cm skin incision this was extended into the subcutaneous tissue using electrocautery and a subcutaneous pocket over the pectoralis fascia was created 2-0 Vicryl suture was used to suture the port to the pectoral fascia in the pocket on 3 sides. The catheter, after having been flushed with hep saline, was attached to the tunneler and a tunnel created between the port site and the subclavian vein entry site. Under fluoroscopy the dilator sheath was passed over the guidewire into the proximal superior vena cava. The inner dilator was removed and the sheath left behind and~ the catheter was introduced through the peel-away sheath with the tip in the superior vena cava. The peel-away sheath was removed. The proximal end of the catheter was cut to the right size and was attached to the port. Using a Gil needle the port was accessed, it withdrew blood easily and flushed easily. A final 5cc of heparin was used to flush the PowerPort. The subcutaneous tissue was approximated using interrupted 3-0 Vicryl sutures and the skin at the introducer site and the port site was closed using subcuticular running 4-0 Monocryl sutures. Surgical glue was applied and the patient was stable throughout the procedure. Fluoroscopic guidance and interpretation was performed for introduction of the guidewire in the left subclavian vein, passage of dilator and placement of catheter tip in the distal superior vena cava.
--- NOTE | 2022-03-27 14:04 | SUR.PHASEI ---
1357 PT TO PACU 5 PT AWAKE ALERT ON 4LNC SATS 94% PT VERBALIZED NO PAIN OR NAUSEA, PT REQUESTS JUICE TO DRIINK PT HAS 4LNC IN PLACE GOOD RESP EFFORT NOTED PT RESP FAST AT 23-24 PT LT SUBCLAVIAN AREA DRESSING D/I BILAT SCDS ON, PT HAS IV TO RT HAND #18 WITH NS 500 ML UP AT KVO RATE PER GRAVITY. 1408 PT VERY TALKATIVE, LAUGHING, VSS WILL GIVE REPORT TO OPS NURSE.
--- NOTE | 2022-03-27 14:22 | ANE.PACU2 ---
Inpatient post-anesthesia follow up: Airway intact: Yes Vital signs: Temperature 98.2 F Pulse Rate 71 Respiratory Rate 20 Blood Pressure 111/68 Pulse Oximetry 95 Oxygen Delivery Me thod Nasal Cannula Oxygen Flow Rate 4 Fraction of Inspir ed Oxygen Hydration adequate: Yes Nausea and vomiting: No Pain level: 2 Mental status: Baseline
== END 2022-03-27 15:00 | disposition home or self-care (01) ==
PROVIDERS: PCP Registered Nurse; Visit Provider Surgery
PROC: (CPT 36561; principal; 2022-03-27 11:05)
DX: C34.91 Malignant neoplasm of unspecified part of right bronchus or lung (principal); J44.9 Chronic obstructive pulmonary disease, unspecified; Z99.81 Dependence on supplemental oxygen; I48.91 Unspecified atrial fibrillation; I25.10 Atherosclerotic heart disease of native coronary artery without angina pectoris; Z95.1 Presence of aortocoronary bypass graft; I10 Essential (primary) hypertension; E78.5 Hyperlipidemia, unspecified; Z79.82 Long term (current) use of aspirin; Z87.891 Personal history of nicotine dependence
CPT/HCPCS: 36561; 76000; 77001; C1788; J0690; J1644; J3490; J7030

== ENCOUNTER → 2022-04-06 11:51 | Day surgery (SDC) | payer MEDICARE, BC, SELFPAY ==
[2022-04-06 12:08] VITALS: BP 160/87; PULSE 71; RESP 20; TEMP 36.1; O2SAT 92
--- NOTE | 2022-04-06 12:16 | US_ITS ---
NOTE: Report was unsigned for reason: Ordering provider was edited. Original Signature date and time was: 04/06/22 @7251 WS: [id number] ULTRASOUND-GUIDED THORACENTESIS, RIGHT. HISTORY: right pleural effusion Procedure, risks, and complications were explained to the patient. With the patient in an upright position, the skin over the RIGHT posterior thorax was cleansed with ChloraPrep and anesthetized with 1% buffered lidocaine. A 5 Telugu Yueh needle is inserted into the pleural fluid without complication. Approximately 300 cc of clear yellow pleural fluid is removed without difficulty. There is only a small RIGHT pleural effusion present. [facility] US/ thoracentesis [id number] IMPRESSION: 1. RIGHT thoracentesis yielding 300 cc of fluid. 2. Chest radiograph to follow to evaluate for pneumothorax.
[2022-04-06 12:40] LABS: INR 1.14 (0.8-1.2)
--- NOTE | 2022-04-06 13:23 | XR_ITS ---
WS: [id number] PORTABLE CHEST HISTORY: post thoracentesis COMPARISON: 02/15/2022 No pneumothorax status post RIGHT thoracentesis. Hyperinflated lungs with emphysema. Small LEFT pleural effusion. Small residual RIGHT effusion. Cardiac size: Moderately enlarged cardiac silhouette. Mediastinum/Aorta: Atherosclerotic changes aorta. Prior CABG. No osseous abnormality seen. LEFT subclavian Mediport in good position. XR/XR chest 1V portable [id number] IMPRESSION: No pneumothorax status post RIGHT thoracentesis.
[2022-04-06 13:40] VITALS: BMI 24.0
[2022-04-06 13:41] VITALS: BP 135/70; PULSE 66; RESP 20; TEMP 36.1; O2SAT 94
== END ==
PROVIDERS: PCP Registered Nurse; Visit Provider Internal Medicine Medical Oncology
PROC: (CPT 32554; principal; 2022-04-06 13:30)
DX: J90 Pleural effusion, not elsewhere classified (principal)
CPT/HCPCS: 32555; 71045; 85610; 88305

== ENCOUNTER 2022-04-18 08:59 | Oncology outpatient (recurring) (ONCR) | payer MEDICARE, BC, SELFPAY ==
--- NOTE | 2022-03-29 16:22 | MR_ITS ---
WS: [id number] MRI HEAD WITH CONTRAST TECHNIQUE: Sagittal T1, T2 axial, T2 axial FLAIR, axial susceptibility weighted imaging, axial diffus ion weighted images, and coronal T2 images were obtained. Pre and post-T1 axial and post T1 coronal i mages. ADC and FSPGR images. CLINICAL INFORMATION: LUNG CANCER COMPARISON: PET CT February 25, 2022 FINDINGS: No evidence of restricted diffusion to suggest acute ischemia. Ventricular system and basal cisterns are patent. Moderate to advanced small vessel changes with moderate parenchymal volume loss. Chronic encephalomalacia in the RIGHT parasagittal frontal lobe with gliosis. Normal posterior fossa. Normal vascular flow voids at the skull base. No extra-axial fluid collections. No evidence of mass or mass effect. Mild mucosal thickening in the sphenoid sinuses. Visualized orbits are normal. Mild small vessel changes in the aren. No hemosiderin on susceptibly weighted images. Moderate symmet herbert atrophy temporal lobes and hippocampal formations. Normal optic chiasm and pituitary infundibulum . Normal cavernous sinuses and Meckel's cave. No abnormal intracranial enhancement. No evidence of en hancing intracranial metastatic disease. Normal dural venous sinuses. MR/MR head wo/w con [id number] IMPRESSION: 1. No evidence of restricted diffusion to suggest acute ischemia. 2. Moderate to advanced small vessel changes with moderate parenchymal volume loss. 3. Small area of chronic encephalomalacia in the RIGHT frontal lobe likely due to prior ischemia. 4. No hemosiderin on susceptibly weighted images. 5. No abnormal intracranial enhancement. No evidence of enhancing intracranial metastatic disease.
--- NOTE | 2022-04-04 | CT_ITS ---
Radiation Therapy Planning CT images; total exam DLP: 409.28 mGy-cm MTDD
--- NOTE | 2022-04-11 | CT_ITS ---
Radiation Therapy Planning CT images; total exam DLP: 369.67 mGy-cm MTDD
--- NOTE | 2022-04-18 09:44 | ONCRAD TMN_ITS ---
Radiation Oncology Treatment Management Note Patient Name: Alyse Ang Date of : 1940 Date of Service: 04/18/2022 Attending Physician: Gallito Clayton M.D. Alyse Ang is an 82 year old white female recently diagnosed with a recently diagnosed clinical stage IIIA (T1bN2) non-small cell lung cancer. She was evaluated at the [facility] Emergency Department in [place], [place] for dyspnea. A thoracic CT performed on February 15, 2022 described spiculated masses measuring 2.3 cm x 1.7 cm of the right perihilar region and 1.3 cm x 2.3 cm in the right upper-lobe, and right hilar adenopathy. Post-obstructive atelectasis was also present. A PET scan ordered on February 25, 2022 demonstrated a 1.7 cm x 1.9 cm perihilar right lower lobe opacity with a maximum SUV of 3.9, a 2.2 cm right hilar lymph node (SUV 5.2), and equivocal activity within a subcarinal lymph node. There was no distant metastatic disease. A bronchoscopy with an endobronchial ultrasound-guided biopsy was performed on March 07, 2022 by Adrianna Ricks M.D. Intraoperative findings reported a large mass occluding the right lower lobe bronchus. Biopsies obtained diagnosed a non-small cell carcinoma favoring a clear cell variant within the right lower lobe and subcarinal specimens. A thoracentesis was performed on April 06, 2022 evacuating 300 cc of fluid. The patient has received 9 Gy of a prescribed 30 Gy with a four-field portal arrangement. Upon review of systems, she described dyspnea. On physical examination, the patient weighed 135 lbs. Her temperature was 97.4 ???F and the blood pressure was 120/70 mmHg. The pulse was 66 bpm and her respiratory rate was 20. Oxygen saturation with 3 L nasal cannula was 95%. There was no erythema within the treatment horta. Auscultation of the posterior lung horta identified minimal breath sounds. Continue palliative thoracic radiotherapy as prescribed. Signed by: Dr. Gallito Clayton 04/18/2022 9:42:47 AM
== END 2022-04-18 23:59 | disposition home or self-care (01) ==
PROVIDERS: PCP Registered Nurse; Visit Provider Radiology Radiation Oncology
DX: Z51.0 Encounter for antineoplastic radiation therapy (principal); C34.31 Malignant neoplasm of lower lobe, right bronchus or lung; Z79.899 Other long term (current) drug therapy; Z87.891 Personal history of nicotine dependence
CPT/HCPCS: 70553; 77295; 77300; 77334; 77387; 77412; A9579; Q9967

== ENCOUNTER 2022-05-10 12:30 | Oncology outpatient (recurring) (ONCR) | payer MEDICARE, BC, SELFPAY ==
--- NOTE | 2022-04-24 09:47 | ONCRAD TMN_ITS ---
Radiation Oncology Treatment Management Note Patient Name: Alyse Ang Date of : 1940 Date of Service: 04/24/2022 Attending Physician: Gallito Clayton M.D. Alyse Ang is an 82 year old white female recently diagnosed with a recently diagnosed clinical stage IIIA (T1bN2) non-small cell lung cancer. She was evaluated at the [facility] in [place], [place] for dyspnea. A thoracic CT performed on February 15, 2022 described spiculated masses measuring 2.3 cm x 1.7 cm of the right perihilar region and 1.3 cm x 2.3 cm in the right upper-lobe, and right hilar adenopathy. Post-obstructive atelectasis was also present. A PET scan ordered on February 25, 2022 demonstrated a 1.7 cm x 1.9 cm perihilar right lower lobe opacity with a maximum SUV of 3.9, a 2.2 cm right hilar lymph node (SUV 5.2), and equivocal activity within a subcarinal lymph node. There was no distant metastatic disease. A bronchoscopy with an endobronchial ultrasound-guided biopsy was performed on March 07, 2022 by Adrianna Ricks M.D. Intraoperative findings reported a large mass occluding the right lower lobe bronchus. Biopsies obtained diagnosed a non-small cell carcinoma favoring a clear cell variant within the right lower lobe and subcarinal specimens. A thoracentesis was performed on April 06, 2022 evacuating 300 cc of fluid. The patient has received 21 Gy of a prescribed 30 Gy with a four-field portal arrangement. Upon review of systems, she described dyspnea. On physical examination, the patient weighed 132 lbs. Her temperature was 98 ???F and the blood pressure was 105/64 mmHg. The pulse was 85 bpm and her respiratory rate was 16. Oxygen saturation with 4 L via nasal cannula was 94%. There was no erythema within the treatment horta. Auscultation of the posterior lung horta identified right sided wheezes. Continue palliative thoracic radiotherapy as planned. Signed by: Dr. Gallito Clayton 04/24/2022 9:46:05 AM
--- NOTE | 2022-04-27 09:05 | N.ONRD TS_ITS ---
Radiation OncologyTreatment Summary Patient Name: Alyse Ang Date of : 1940 Date of Service: 04/27/2022 Attending Physician: Gallito Clayton M.D. Alyse Ang has completed palliative thoracic radiation therapy for the management of a Alyse Ang is an 82 year old white female recently diagnosed with a recently diagnosed clinical stage IV ([id number]) non-small cell lung cancer. She was evaluated at the [facility] Emergency Department in [place], [place] for dyspnea. A thoracic CT performed on February 15, 2022 described spiculated masses measuring 2.3 cm x 1.7 cm of the right perihilar region and 1.3 cm x 2.3 cm in the right upper-lobe, and right hilar adenopathy. Post-obstructive atelectasis was also present. A PET scan ordered on February 25, 2022 demonstrated a 1.7 cm x 1.9 cm perihilar right lower lobe opacity with a maximum SUV of 3.9, a 2.2 cm right hilar lymph node (SUV 5.2), and equivocal activity within a subcarinal lymph node. There was no distant metastatic disease. A bronchoscopy with an endobronchial ultrasound-guided biopsy was performed on March 07, 2022 by Adrianna Ricks M.D. Intraoperative findings reported a large mass occluding the right lower lobe bronchus. Biopsies obtained diagnosed a non-small cell carcinoma favoring a clear cell variant within the right lower lobe and subcarinal specimens. A thoracentesis was performed on April 06, 2022 evacuating 300 cc of fluid. Daily radiotherapy was administered between the dates April 13, 2022 through April 27, 2022. A prescribed dose of 30 Gy was delivered in 10 fractions encompassing 15 elapsed days. The right lower-lobe lung mass was treated utilizing a 3-dimensional conformal radiotherapy plan with a four-field design. The ports utilized a gantry angles of 185???, 225???, 305???, and 345??? with a collimator rotation of 0???. The field sizes spanned 12.5 cm x 16.9 cm to 15.6 cm x 17.4 cm. The SSDs measured a minimum of 85.7 cm to a maximum of 90.3 cm. The ports delivered 87 MU, 86 MU, 88 MU, and 89 MU. All treatments were performed with the ZeeVee linear accelerator and an isocentric technique. The dose was calculated by Anisotropic Analytic Algorithm. A photon energy of 15 MV were prescribed with the plan normalized to deliver 100% of the prescription dose to 95% of the planning target volume. The [facility] physician approved the plan. Signed by: Dr. Gallito Clayton 04/27/2022 9:04:23 AM
[2022-05-10 13:30] VITALS: BMI 22.5
[2022-05-10 13:39] LABS: Basophils % 0.2 %; Eosinophils # 0.1 10^3/uL (0.0-0.8); Eosinophils % 1.6 %; Hematocrit 30.1 % (37.0-47.0); Hemoglobin 9.1 g/dL (11.5-15.3); Lymphocytes # 0.3 10^3/uL (0.8-4.8); Lymphocytes % 4.6 %; Mean Corpuscular HGB Conc 30.2 g/dL (30.0-36.0); Mean Corpuscular Hemoglobin 22.9 pg (28.0-34.0); Mean Corpuscular Volume 75.8 fl (81-99); Mean Platelet Volume 8.3 fL (7.4-10.4); Monocytes # 0.7 10^3/uL (0.2-0.9); Monocytes % 11.7 %; Neutrophils # 4.98 10^3/uL (1.8-7.7); Neutrophils % 81.1 %; Nucleated Red Blood Cells % 0 %; Platelet Count 203 10^3/cmm (130-400); Red Blood Count 3.97 10^6/uL (4.1-5.3); Red Cell Distribution Width 17.2 % (12.1-15.1); White Blood Count 6.1 10^3/uL (4.0-10.0)
[2022-05-10 14:04] LABS: Alanine Aminotransferase 15 U/L (0-33); Albumin Level 2.9 g/dL (3.5-5.2); Alkaline Phosphatase 131 IU/L (35-105); Anion Gap 10.7 (5-19); Aspartate Amino Transferase 21 U/L (0-32); Blood Urea Nitrogen 12 mg/dL (8-23); Calcium 8.8 mg/dL (8.5-10.5); Carbon Dioxide 38 mmol/L (22-29); Chloride 90 mmol/L (98-107); Ferritin 177 ng/mL (15-150); Globulin 3.1 g/dL (1.3-4.6); Glucose 125 mg/dL (65-115); Iron 10 ug/dL (37-145); Osmolality Calculated 281 mOsm/kg (285-295); Percent Saturation 6.9 % (20-50); Potassium 3.7 mmol/L (3.5-5.1); Sodium 135 mmol/L (136-145); Total Bilirubin 0.6 mg/dL (0.15-1.2); Total Iron Binding Capacity 143 mcg/dl; Unsaturated Iron Binding 133 ug/dL (112-347)
--- NOTE | 2022-05-10 14:59 | XR_ITS ---
WS: [id number] Exam: XR chest 2V* [id number] Date/Time of Exam: 05/10/2022 2:59 PM Reason For Exam: shortness of breath; edema Comparison 04/06/2022. Interstitial and airspace infiltrates noted in both upper lung zone suggesting pneumonia. Bibasal ple ural effusions essentially unchanged. The heart is enlarged but unchanged in size. A left subclavian port ends in the lower one third of the SVC. Signs of previous CABG surgery. No pneumothorax. The med iastinum is normal in contour. Bony structures are intact. XR/XR chest 2V* [id number] IMPRESSION: 1. Infiltrates in both upper lung zones suggesting pneumonia. Areas of plaque a telectasis in the left lower lung zone. 2. Bibasal pleural effusions unchanged. 3. Cardiac enlargement unchanged. Left-sided port in satisfactory position.
== END 2022-05-18 23:59 | disposition home or self-care (01) ==
PROVIDERS: Internal Medicine Medical Oncology; PCP Registered Nurse; Visit Provider Nurse Practitioner Family
DX: C34.31 Malignant neoplasm of lower lobe, right bronchus or lung (principal); J44.0 Chronic obstructive pulmonary disease with (acute) lower respiratory infection; J41.0 Simple chronic bronchitis; Z87.891 Personal history of nicotine dependence; R60.0 Localized edema; R11.2 Nausea with vomiting, unspecified; J98.11 Atelectasis; J90 Pleural effusion, not elsewhere classified; I51.7 Cardiomegaly
CPT/HCPCS: 36591; 71046; 77014; 77336; 77387; 77412; 77427; 80053; 82728; 83540; 83550; 85025; 99214

== ENCOUNTER 2022-05-13 17:23 | Inpatient (IN) | payer MEDICARE, BC, SELFPAY ==
[2022-05-13 18:07] VITALS: BP 109/67; PULSE 101; RESP 18; TEMP 37.4; O2SAT 100; BMI 19.5
--- NOTE | 2022-05-13 21:15 | XRR_ITS ---
PROCEDURE INFORMATION: Exam: XR Right Ribs Exam date and time: 05/13/2022 10:12 PM Age: 82 years old Clinical indication: Injury or trauma; Fall; Rib area; Blunt trauma (contusions or hematomas); Additional info: Rib pain TECHNIQUE: Imaging protocol: Radiologic exam of the Right ribs. Views: 2 views. COMPARISON: CR (CHEST, ) 05/13/2022 10:11 PM FINDINGS: Tubes, catheters and devices: Infusion port catheter is in place with its tip in the superior vena cava. Bones/joints: There is a mildly displaced acute fracture of the anterolateral aspect of the right 9th rib. Lungs: Pulmonary infiltrates as described on the preceding chest radiograph. Pleural space: No pneumothorax is identified. Heart/Mediastinum: There are calcified right paratracheal lymph nodes in keeping with old granulomatous disease. Soft tissues: Normal. XR/XR ribs RT 2V* [id number] IMPRESSION: Right 9th rib fracture.
--- NOTE | 2022-05-13 21:15 | XRR_ITS ---
PROCEDURE INFORMATION: Exam: XR Chest Exam date and time: 05/13/2022 10:11 PM Age: 82 years old Clinical indication: Angina; Additional info: Fall, chest pain TECHNIQUE: Imaging protocol: Radiologic exam of the chest. Views: 1 view. COMPARISON: CR XR chest 2V* [id number] 05/10/2022 2:58 PM FINDINGS: Tubes, catheters and devices: Infusion port catheter is in place with its tip in the superior vena cava. Lungs: Interstitial and alveolar infiltrates in both upper lobes worrisome for pneumonia not significantly changed from 05/10/2022. Pleural spaces: Unremarkable. No pleural effusion. No pneumothorax. Heart/Mediastinum: There is moderate cardiomegaly. Vasculature: There is atherosclerotic calcification of the aortic arch. Bones/joints: Sternotomy wires and mediastinal surgical clips are present, consistent with previous coronary arterial bypass grafting. XR/XR chest 1V portable [id number] IMPRESSION: No change in bilateral pneumonia.
[2022-05-13 21:21] VITALS: PULSE 92; RESP 18; O2SAT 97
--- NOTE | 2022-05-13 21:44 | ED_ITS ---
HPI - Fall General: Chief Complaint: Fall Stated Complaint: Fall with Rib pain at 0900Am Time Seen by Provider: 05/13/22 21:15 [facility] ED PFSH: Medical History Atrial flutter Cancer of right lung COPD (chronic obstructive pulmonary disease) Coronary disease Dyslipidemia Essential hypertension Hypertension Surgical History History of colon resection for benign mass History of colonoscopy History of colostomy reversed History of partial hysterectomy Port-A-Cath in place (03/27/22) S/P CABG (coronary artery bypass graft) HERNANDEZ to LAD and saphenous vein graft to posterior descending artery of right coronary Family History (Updated 05/10/22 @ 14:03 by Jemma Abdi LPN) Other CAD (coronary artery disease) Hyperlipidemia Hypertension Denies family history of Diabetes Clotting disorder Dementia Psychiatric illness Chronic kidney disease (CKD) Suicide Anesthesia complication Bleeding disorder Lung disease Cancer Stroke Social History Smoking and tobacco status: former smoker Quit status (tobacco): has quit using tobacco Year quit tobacco: 2019 Former quit date comment: 1 ppd X 58 years, started at age 23 Alcohol intake: never Housing: Assisted Living Facility Course Vital Signs: Vital signs: Vital Signs Temperature 99.3 F 05/13/22 18:07 Pulse Rate 92 05/13/22 21:21 Respiratory Rate 18 05/13/22 21:21 Blood Pressure 109/67 05/13/22 18:07 Pulse Oximetry 97 05/13/22 21:21 Discharge Plan Discharge Condition: Stable Prescriptions: No Action aspirin 81 mg tablet,delayed release (DR/EC) 81 mg PO DAILY Qty: 90 1RF Trelegy Ellipta 100-62.5-25 mcg blister with device 1 inh inhalation DAILY 60 Days Qty: 60 3RF furosemide 40 mg tablet 40 mg PO DAILY PRN (Reason: edema) Qty: 30 2RF lorazepam 1 mg tablet 1 mg PO Q6H PRN (Reason: severe nausea and vomiting) Qty: 30 3RF Rx Instructions: take 1/2 to 1 tab every 6 hours as needed for severe nausea and vomiting Spiriva with HandiHaler 18 mcg capsule, w/inhalation device 1 cap inhalation DAILY 30 Days Qty: 60 3RF Rx Instructions: puncture 1 cap using device; one dose = 2 inhalations rosuvastatin 20 mg tablet See Rx Instructions .ROUTE .COMPLEX Qty: 90 0RF Dose Instruction: TAKE 1 TABLET EVERY DAY Rx Instructions: TAKE 1 TABLET EVERY DAY prochlorperazine maleate [Compazine] 10 mg tablet 10 mg PO Q4H PRN (Reason: nausea and vomiting) Qty: 30 3RF furosemide [Lasix] 20 mg tablet 20 mg PO DAILY 30 Days Qty: 30 1RF levofloxacin 500 mg tablet 500 mg PO DAILY 7 Days Qty: 7 0RF lisinopril 10 mg tablet 10 mg PO DAILY 0RF Rx Instructions: TAKE 1 TABLET EVERY DAY metoprolol tartrate 25 mg tablet 25 mg PO BID 0RF amlodipine 10 mg tablet 10 mg PO DAILY 0RF Rx Instructions: TAKE 1 TABLET EVERY DAY hydrochlorothiazide 25 mg tablet 25 mg PO DAILY 0RF Rx Instructions: TAKE 1 TABLET EVERY DAY budesonide-formoterol [Symbicort] 160-4.5 mcg/actuation HFA aerosol inhaler 2 puff inhalation Q12H PRN (Reason: Bronchospasm) 0RF hydrocodone-acetaminophen 5-325 mg tablet 1 tab PO Q6H PRN (Reason: pain) Qty: 20 0RF Referrals: Manju Hebert [Primary Care Provider] - Coding Level of Care Code ED Joy Loading Machine Operator for Loida Billy
--- NOTE | 2022-05-13 21:44 | CTR_ITS ---
PROCEDURE INFORMATION: Exam: CT Head Without Contrast Exam date and time: 05/13/2022 10:28 PM Age: 82 years old Clinical indication: Injury or trauma; Fall; Blunt trauma (contusions or hematomas); Patient HX: Patient had syncopal episode and fell backwards onto floor at home. History of lung cancer. ; Additional info: AMS TECHNIQUE: Imaging protocol: Computed tomography of the head without contrast. Radiation optimization: All CT scans at this facility use at least one of these dose optimization techniques: automated exposure control; mA and/or kV adjustment per patient size (includes targeted exams where dose is matched to clinical indication); or iterative reconstruction. COMPARISON: MR head wo/w con [id number] 03/29/2022 5:04 PM RADIATION DOSE METRICS: Total DLP (mGy-cm): 769.3 FINDINGS: Brain: There is moderate cortical atrophy. Low-density changes in the white matter are consistent with nonspecific small vessel chronic ischemic change. There is no intracranial mass, hemorrhage or edema. There is some focal encephalomalacia in the right frontal lobe likely related to chronic infarct. There is no extra-axial fluid collection. Cerebral ventricles: Ventricles within normal limits. Paranasal sinuses: There is some fluid in the left sphenoid sinus not changed compared with MRI Mastoid air cells: Visualized mastoid air cells are well aerated. Bones/joints: Unremarkable. No acute fracture. Soft tissues: Unremarkable. CT/CT head wo con* [id number] IMPRESSION: 1. Atrophy and chronic ischemic changes. 2. 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 3. No acute abnormality
--- NOTE | 2022-05-13 22:15 | W.ED.GENADLT ---
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 Patient tells me around 9:00 this morning told her after getting up from her bedroom, patient felt lightheaded and passed out. Patient tells me that she hit the right back of her chest. Since this morning, patient has been having right-sided back pain. Patient denied any shortness of breath, chest pain, palpitation prior to the episode of fall. Patient denies any nausea/vomiting, diarrhea melena/hematochezia that is different from her usual. Patient has no complaints. Because of persistence of pain, patient decided to come to the emergency room for further evaluation. Onset:9am Duration: ongoing R sided rib pain since 9am Location:home Severity:moderate Associated symptoms: Deny chest pain, dyspnea, nausea, rash, palpitations or vomiting Review of Systems Const: Denies: fever(s) or chills Eyes: Denies: change in vision ENMT: Denies: mouth pain Card: Denies: chest pain or palpitations Resp: Denies: dyspnea or non-productive cough GI: Denies: abdominal pain, nausea, vomiting or diarrhea : Denies: dysuria Musc: Reports: other (+R upper back pain); Denies: extremity pain Skin/Breast: Denies: rash or new lesions Neuro: Denies: weakness in extremities Psych: Reports: other (Normal mood) Santiago/Lymph: Denies: easy bruising PFSH ED PFSH: Medical History Atrial flutter Cancer of right lung COPD (chronic obstructive pulmonary disease) Coronary disease Dyslipidemia Essential hypertension Hypertension Surgical History History of colon resection for benign mass History of colonoscopy History of colostomy reversed History of partial hysterectomy Port-A-Cath in place (03/27/22) S/P CABG (coronary artery bypass graft) HERNANDEZ to LAD and saphenous vein graft to posterior descending artery of right coronary Family History Other CAD (coronary artery disease) Hyperlipidemia Hypertension Denies family history of Diabetes Clotting disorder Dementia Psychiatric illness Chronic kidney disease (CKD) Suicide Anesthesia complication Bleeding disorder Lung disease Cancer Stroke Social History Smoking and tobacco status: former smoker Quit status (tobacco): has quit using tobacco Year quit tobacco: 2019 Former quit date comment: 1 ppd X 58 years, started at age 23 Alcohol intake: never Housing: Assisted Living Facility Physical Exam Const: COMMON NORMALS: alert HENMT: COMMON NORMALS: atraumatic HEAD & SCALP: atraumatic MOUTH: moist mucous membranes not abnormal Eye: COMMON NORMALS: EOMs intact bilaterally and conjunctivae normal CONJUNCTIVA: Yes conjunctivae normal Neck/C-Spine: COMMON NORMALS: full ROM and supple Resp: COMMON NORMALS: normal respiratory effort and clear to auscultation bilaterally AUSCULTATION: clear to auscultation bilaterally Cardio: COMMON NORMALS: regular rate RATE: regular rate GI: COMMON NORMALS: Soft to palpation and non-tender PALPATION: Yes Soft to palpation Back/Pelvis: OTHER: +R palpable thoracic back tenderness to palpation Extremity: COMMON NORMALS: full ROM Neuro: SENSORIUM/ORIENTATION: Yes alert MOTOR EXAM: No Abnormal motor strength present and Other motor observations present (no focal motor deficits) Psych: COMMON NORMALS: speech normal SPEECH: Yes normal speech MOOD & AFFECT: Yes euthymic mood Course Vital Signs: Vital signs: Vital Signs Temperature 99.3 F 05/13/22 18:07 Pulse Rate 91 05/14/22 15:01 Respiratory Rate 18 05/14/22 14:58 Blood Pressure 114/70 05/14/22 12:00 Pulse Oximetry 94 05/14/22 14:58 [facility] - General Adult Medical Decision Making 82-year-old female with a history of stage II adenocarcinoma, COPD, atrial flutter who presents the emergency room after episode of syncope and complaints of right-sided back pain. On physical exam, patient is clear breath sounds bilaterally. No signs of respiratory distress or desaturation. Patient is palpable tenderness palpation right thoracic back. No other signs of focal tenderness palpation. Pending x-ray and work-up at this time for syncope and trauma. Case signed out to Dr. Bruno Lab Data : 05/13/22 22:17 05/13/22 22:17 Radiology Impressions Chest X-Ray 05/13/22 21:15 IMPRESSION: No change in bilateral pneumonia. Ribs X-Ray 05/13/22 21:15 IMPRESSION: Right 9th rib fracture. Head CT 05/13/22 21:44 IMPRESSION: 1. Atrophy and chronic ischemic changes. 2. 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 3. No acute abnormality Laboratory Results WBC 4.4 10^3/uL (4.0-10.0) 05/13/22 22:17 RBC 3.93 10^6/uL (4.1-5.3) L 05/13/22 22:17 Hgb 8.8 g/dL (11.5-15.3) L 05/13/22 22:17 Hct 28.9 % (37.0-47.0) L 05/13/22 22:17 MCV 73.5 fl (81-99) L 05/13/22 22:17 MCH 22.4 pg (28.0-34.0) L 05/13/22 22:17 MCHC 30.4 g/dL (30.0-36.0) 05/13/22 22:17 RDW 17.5 % (12.1-15.1) H 05/13/22 22:17 Plt Count 196 10^3/cmm (130-400) 05/13/22 22:17 MPV 8.3 fL (7.4-10.4) 05/13/22 22:17 Neut % (Auto) 78.1 % 05/13/22 22:17 Lymph % (Auto) 6.8 % 05/13/22 22:17 [place] % (Auto) 14.2 % 05/13/22 22:17 Eos % (Auto) 0.2 % 05/13/22 22:17 Baso % (Auto) 0.2 % 05/13/22 22:17 Neut # (Auto) 3.47 10^3/uL (1.8-7.7) 05/13/22 22:17 Lymph # (Auto) 0.3 10^3/uL (0.8-4.8) L 06/25/22 22:17 [place] # (Auto) 0.6 10^3/uL (0.2-0.9) 05/13/22 22:17 Eos # (Auto) 0.0 10^3/uL (0.0-0.8) 05/13/22 22:17 Baso # (Auto) 0.0 10^3/uL (0.0-0.1) 05/13/22 22:17 Nucleated RBC % (auto) 0 % 05/13/22 22:17 Nucleated RBCs # 0.0 /100WBC 05/13/22 22:17 Sodium 134 mmol/L (136-145) L 05/13/22 22:17 Potassium 3.4 mmol/L (3.5-5.1) L 05/13/22 22:17 Chloride 88 mmol/L (98-107) L 05/13/22 22:17 Carbon Dioxide 39 mmol/L (22-29) H 05/13/22 22:17 Anion Gap 10.4 (5-19) 05/13/22 22:17 BUN 15 mg/dL (8-23) 05/13/22 22:17 Creatinine 0.8 mg/dL (0.5-0.9) 05/13/22 22:17 GFR Calculation Not Reportable 05/13/22 22:17 Glucose 124 mg/dL (65-115) H 05/13/22 22:17 Calculated Osmolality 280 mOsm/kg (285-295) L 05/13/22 22:17 Calcium 8.2 mg/dL (8.5-10.5) L 05/13/22 22:17 Total Bilirubin 0.6 mg/dL (0.15-1.2) 05/13/22 22:17 AST 22 U/L (0-32) 05/13/22 22:17 ALT 16 U/L (0-33) 05/13/22 22:17 Alkaline Phosphatase 124 IU/L (35-105) H 05/13/22 22:17 Troponin T Baseline 24 ng/L (0-10) H 05/13/22 22:17 NT-Pro-B Natriuret Pep 2232 pg/mL (0-450) H 05/13/22 22:17 Total Protein 5.7 g/dL (6.6-8.7) L 05/13/22 22:17 Albumin 2.8 g/dL (3.5-5.2) L 05/13/22 22:17 Globulin 2.9 g/dL (1.3-4.6) 05/13/22 22:17 Lipase 11 U/L (13-60) L 05/13/22 22:17 Discharge Plan Discharge Patient Disposition: Admitted As Inpatient Admit Provider: Harish Lopez Clinical Impression: Back pain, Syncope and collapse Condition: Stable Coding Level of Care Code ED Chemical Dependency Therapist for Chg Fwd Exam Comprehensive Documented by User: Britton Bruno, 05/14/22 15:22 HPI - General Adult General: Chief complaint: Fall Stated complaint: Fall with Rib pain at 0900Am Time Seen by Provider: 05/13/22 21:15 [facility] ED PFSH: Medical History Atrial flutter Cancer of right lung COPD (chronic obstructive pulmonary disease) Coronary disease Dyslipidemia Essential hypertension Hypertension Surgical History History of colon resection for benign mass History of colonoscopy History of colostomy reversed History of partial hysterectomy Port-A-Cath in place (03/27/22) S/P CABG (coronary artery bypass graft) HERNANDEZ to LAD and saphenous vein graft to posterior descending artery of right coronary Family History Other CAD (coronary artery disease) Hyperlipidemia Hypertension Denies family history of Diabetes Clotting disorder Dementia Psychiatric illness Chronic kidney disease (CKD) Suicide Anesthesia complication Bleeding disorder Lung disease Cancer Stroke Social History Smoking and tobacco status: former smoker Quit status (tobacco): has quit using tobacco Year quit tobacco: 2019 Former quit date comment: 1 ppd X 58 years, started at age 23 Alcohol intake: never Housing: Assisted Living Facility Course Vital Signs: Vital signs: Vital Signs Temperature 99.3 F 05/13/22 18:07 Pulse Rate 91 05/14/22 15:01 Respiratory Rate 18 05/14/22 14:58 Blood Pressure 114/70 05/14/22 12:00 Pulse Oximetry 94 05/14/22 14:58 MDM - General Adult Medical Decision Making 82-year-old female with a history of stage II adenocarcinoma, COPD, atrial flutter who presents the emergency room after episode of syncope and complaints of right-sided back pain. On physical exam, patient is clear breath sounds bilaterally. No signs of respiratory distress or desaturation. Patient is palpable tenderness palpation right thoracic back. No other signs of focal tenderness palpation. Pending x-ray and work-up at this time for syncope and trauma. Case signed out to Dr. Bruno patient signed out to me by the previous physician at shift change. This lady is hypoxic greater than her baseline. She has bilateral pleural effusions. She has bilateral infiltrates on chest X ray as well. She has fractured her 9th rib. She'll be admitted for treatment. On further review, infiltrates maybe related to radiation pneumonitis more so than infection. She is covered for pneumonia. Lab Data : 05/13/22 22:17 05/13/22 22:17 Radiology Impressions Chest X-Ray 05/13/22 21:15 IMPRESSION: No change in bilateral pneumonia. Ribs X-Ray 05/13/22 21:15 IMPRESSION: Right 9th rib fracture. Head CT 05/13/22 21:44 IMPRESSION: 1. Atrophy and chronic ischemic changes. 2. 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 3. No acute abnormality Laboratory Results WBC 4.4 10^3/uL (4.0-10.0) 05/13/22 22:17 RBC 3.93 10^6/uL (4.1-5.3) L 05/13/22 22:17 Hgb 8.8 g/dL (11.5-15.3) L 05/13/22 22:17 Hct 28.9 % (37.0-47.0) L 05/13/22 22:17 MCV 73.5 fl (81-99) L 05/13/22 22:17 MCH 22.4 pg (28.0-34.0) L 05/13/22 22:17 MCHC 30.4 g/dL (30.0-36.0) 05/13/22 22:17 RDW 17.5 % (12.1-15.1) H 05/13/22 22:17 Plt Count 196 10^3/cmm (130-400) 05/13/22 22:17 MPV 8.3 fL (7.4-10.4) 05/13/22 22:17 Neut % (Auto) 78.1 % 05/13/22 22:17 Lymph % (Auto) 6.8 % 05/13/22 22:17 [place] % (Auto) 14.2 % 05/13/22 22:17 Eos % (Auto) 0.2 % 05/13/22 22:17 Baso % (Auto) 0.2 % 05/13/22 22:17 Neut # (Auto) 3.47 10^3/uL (1.8-7.7) 05/13/22 22:17 Lymph # (Auto) 0.3 10^3/uL (0.8-4.8) L 05/13/22 22:17 [place] # (Auto) 0.6 10^3/uL (0.2-0.9) 05/13/22 22:17 Eos # (Auto) 0.0 10^3/uL (0.0-0.8) 05/13/22 22:17 Baso # (Auto) 0.0 10^3/uL (0.0-0.1) 05/13/22 22:17 Nucleated RBC % (auto) 0 % 05/13/22 22:17 Nucleated RBCs # 0.0 /100WBC 05/13/22 22:17 Sodium 134 mmol/L (136-145) L 05/13/22 22:17 Potassium 3.4 mmol/L (3.5-5.1) L 05/13/22 22:17 Chloride 88 mmol/L (98-107) L 05/13/22 22:17 Carbon Dioxide 39 mmol/L (22-29) H 05/13/22 22:17 Anion Gap 10.4 (5-19) 05/13/22 22:17 BUN 15 mg/dL (8-23) 05/13/22 22:17 Creatinine 0.8 mg/dL (0.5-0.9) 05/13/22 22:17 GFR Calculation Not Reportable 05/13/22 22:17 Glucose 124 mg/dL (65-115) H 05/13/22 22:17 Calculated Osmolality 280 mOsm/kg (285-295) L 05/13/22 22:17 Calcium 8.2 mg/dL (8.5-10.5) L 05/13/22 22:17 Total Bilirubin 0.6 mg/dL (0.15-1.2) 05/13/22 22:17 AST 22 U/L (0-32) 05/13/22 22:17 ALT 16 U/L (0-33) 05/13/22 22:17 Alkaline Phosphatase 124 IU/L (35-105) H 05/13/22 22:17 Troponin T Baseline 24 ng/L (0-10) H 05/13/22 22:17 NT-Pro-B Natriuret Pep 2232 pg/mL (0-450) H 05/13/22 22:17 Total Protein 5.7 g/dL (6.6-8.7) L 05/13/22 22:17 Albumin 2.8 g/dL (3.5-5.2) L 05/13/22 22:17 Globulin 2.9 g/dL (1.3-4.6) 05/13/22 22:17 Lipase 11 U/L (13-60) L 05/13/22 22:17 Discharge Plan Discharge Patient Disposition: Admitted As Inpatient Admit Provider: Harish Lopez Clinical Impression: Back pain, Syncope and collapse Condition: Stable Coding Level of Care Code ED Chemical Dependency Therapist for Chg Fwd Exam Comprehensive
[2022-05-13] MEDS: morphine 4 mg/mL SDV 1 mL 2 MG IVP (22:22)
[2022-05-13] MEDS: sodium chloride 0.9% 500 ML IV (22:22)
[2022-05-13 22:33] LABS: Basophils % 0.2 %; Eosinophils % 0.2 %; Hematocrit 28.9 % (37.0-47.0); Hemoglobin 8.8 g/dL (11.5-15.3); Lymphocytes # 0.3 10^3/uL (0.8-4.8); Lymphocytes % 6.8 %; Mean Corpuscular HGB Conc 30.4 g/dL (30.0-36.0); Mean Corpuscular Hemoglobin 22.4 pg (28.0-34.0); Mean Corpuscular Volume 73.5 fl (81-99); Mean Platelet Volume 8.3 fL (7.4-10.4); Monocytes # 0.6 10^3/uL (0.2-0.9); Monocytes % 14.2 %; Neutrophils # 3.47 10^3/uL (1.8-7.7); Neutrophils % 78.1 %; Nucleated Red Blood Cells % 0 %; Platelet Count 196 10^3/cmm (130-400); Red Blood Count 3.93 10^6/uL (4.1-5.3); Red Cell Distribution Width 17.5 % (12.1-15.1); White Blood Count 4.4 10^3/uL (4.0-10.0)
[2022-05-13 22:53] LABS: Troponin(5th) Baseline 24 ng/L (0-10)
[2022-05-13 23:02] LABS: Alanine Aminotransferase 16 U/L (0-33); Albumin Level 2.8 g/dL (3.5-5.2); Alkaline Phosphatase 124 IU/L (35-105); Anion Gap 10.4 (5-19); Aspartate Amino Transferase 22 U/L (0-32); Blood Urea Nitrogen 15 mg/dL (8-23); Calcium 8.2 mg/dL (8.5-10.5); Carbon Dioxide 39 mmol/L (22-29); Chloride 88 mmol/L (98-107); Globulin 2.9 g/dL (1.3-4.6); Glucose 124 mg/dL (65-115); Lipase 11 U/L (13-60); NT Pro B Type Natriuretic Pept 2232 pg/mL (0-450); Osmolality Calculated 280 mOsm/kg (285-295); Potassium 3.4 mmol/L (3.5-5.1); Sodium 134 mmol/L (136-145); Total Bilirubin 0.6 mg/dL (0.15-1.2); Total Protein 5.7 g/dL (6.6-8.7)
--- NOTE | 2022-05-13 23:44 | ECG_ITS ---
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 Measurements Intervals [place] Rate: 101 P: FL: QRS: 0 QRSD: 86 T: 25 QT: 361 QTc: 470 Interpretive Statements ATRIAL FIBRILLATION WITH RAPID VENTRICULAR RESPONSE POSSIBLE RIGHT VENTRICULAR CONDUCTION DELAY [RSR (QR) IN V1/V2] NONSPECIFIC ST & T-WAVE ABNORMALITY Compared to ECG 05/14/2022 00:38:18 T-wave abnormality now present Ventricular premature complex(es) no longer present Aberrant conduction of supraventricular beat(s) no longer present Myocardial infarct finding no longer present Electronically Signed On 05-14-2022 13:25:27 CDT by Lawrence Smith M.D. [id number]
[2022-05-14] VITALS (32 sets, daily range): BP systolic 104–125; BP diastolic 53–87; PULSE 82–120; RESP 16–28; TEMP 36.6–36.7; O2SAT 82–99
[2022-05-14] MEDS: FUROsemide 10 mg/mL SDV 4mL 40 MG IVP ×3 (00:11→18:49)
[2022-05-14] MEDS: piperacillin-tazobactam 4.5 GM in sodium chloride 0.9% (plus) 50 ML IV (00:12)
[2022-05-14 00:58] LABS: Troponin 5 2HR 24.52 ng/L (0-10)
[2022-05-14 01:01] LABS: Troponin 5 2HR Delta 0.52 ABS# (0-10)
--- NOTE | 2022-05-14 01:14 | P.HP_ITS ---
Providers/Chief Complaint Admitting Physician: Harish Lopez MD Primary Care Provider: Manju Hebert Chief Complaint: Fall with Rib pain at 0900Am History of Present Illness Alyse Ang is a 82 year old female with PMH of coronary artery disease status post CABG HERNANDEZ to LAD and SVG to PDA?, Hypertension Atrial fibrillation COPD , Ca lung currently on radiation therapy (completed the last 10th session of radiation therapy recently) came in with chief complaint of after experiencing a fall at home while she was walking in the from what she states me regarding the fall looks like it is a mechanical fall , she is also complaining of shortness of breath particularly with exertion, cough with greenish sputum production as well as subjective fever at home. Upon arrival in the ER she was worked up for above mentioned complaint: Pertinent imaging studies: X-ray chest: Interstitial and alveolar infiltrates in both upper lobes. XR ribs RT: Right 9th rib fracture. CT head without contrast: No acute intracranial pathology. Pertinent labs: WBC 4.4, H&H: 8.8/ 28 , PLT : 196 , sodium 134 , potassium 3.4, BUN / serum creatinine: 15/0.8 , Troponin trend: 24, 24 , proBNP: 2232 Review of Systems General: Reports: 10 or more systems reviewed and unremarkable except in HPI and below Const: Reports: fever(s); Denies: chills, body aches or diaphoresis Card: Reports: edema, swelling of feet/ankles, dyspnea on exertion and orthopn ea; Denies: palpitations or leg pain with exertion Resp: Reports: dyspnea; Denies: productive cough, wheezing or pain on inspiration GI: Denies: abdominal pain, nausea, vomiting, diarrhea or constipation : Denies: flank pain Musc: Denies: back pain, extremity pain or extremity swelling Neuro: Denies: headache(s), difficulty walking or confusion Medications/Allergies Home Medications Medication Instructions Recorded Confirmed Last Taken Type aspirin 81 mg tablet,delayed 81 mg PO DAILY #90 tab 03/29/20 05/10/22 04/05/22 Rx release fluticasone fur. 100 mcg-umeclid 1 inh INHALATION DAILY 60 Days #60 02/23/22 05/10/22 04/06/22 Rx 62.5 mcg-vilant 25 mcg ea inhalat.powder (Trelegy Ellipta) tiotropium bromide 18 mcg capsule 1 cap INHALATION DAILY 30 Days #60 02/24/22 05/10/22 04/06/22 Rx with inhalation device (Spiriva inh with HandiHaler) lisinopril 10 mg tablet 10 mg PO DAILY 03/03/22 05/10/22 04/05/22 History metoprolol tartrate 25 mg tablet 25 mg PO BID 03/03/22 05/10/22 04/06/22 History amlodipine 10 mg tablet 10 mg PO DAILY 03/24/22 05/10/22 04/06/22 History budesonide-formoterol HFA 160 2 puff INHALATION Q12H PRN 03/24/22 05/10/22 04/06/22 History mcg-4.5 mcg/actuation aerosol inhaler (Symbicort) hydrochlorothiazide 25 mg tablet 25 mg PO DAILY 03/24/22 05/10/22 04/06/22 History hydrocodone 5 mg-acetaminophen 325 1 tab PO Q6H PRN #20 tab 03/27/22 05/10/22 Unknown Rx mg tablet rosuvastatin 20 mg tablet See Rx Instructions .ROUTE 03/29/22 05/10/22 04/05/22 Rx .COMPLEX #90 tablet prochlorperazine maleate 10 mg 10 mg PO Q4H PRN #30 tab 04/03/22 05/10/22 Unknown Rx tablet (Compazine) furosemide 20 mg tablet (Lasix) 20 mg PO DAILY 30 Days #30 tab 05/09/22 05/10/22 Unknown Rx furosemide 40 mg tablet 40 mg PO DAILY PRN #30 tab 05/10/22 05/10/22 Unknown Rx levofloxacin 500 mg tablet 500 mg PO DAILY 7 Days #7 tab 05/10/22 Unknown Rx lorazepam 1 mg tablet 1 mg PO Q6H PRN #30 tab 05/10/22 05/10/22 Unknown Rx Allergies Allergy/AdvReac Type Severity Reaction Status Date / Time cortisone Allergy Unknown Verified 05/10/22 13:59 doxycycline Allergy ADR-Itching Verified 05/10/22 13:59 PFSH Acute PFSH: Medical History Atrial flutter Cancer of right lung COPD (chronic obstructive pulmonary disease) Coronary disease Dyslipidemia Essential hypertension Hypertension Surgical History History of colon resection for benign mass History of colonoscopy History of colostomy reversed History of partial hysterectomy Port-A-Cath in place (03/27/22) S/P CABG (coronary artery bypass graft) HERNANDEZ to LAD and saphenous vein graft to posterior descending artery of right coronary Family History Other CAD (coronary artery disease) Hyperlipidemia Hypertension Denies family history of Diabetes Clotting disorder Dementia Psychiatric illness Chronic kidney disease (CKD) Suicide Anesthesia complication Bleeding disorder Lung disease Cancer Stroke Social History Smoking and tobacco status: former smoker Quit status (tobacco): has quit using tobacco Year quit tobacco: 2019 Former quit date comment: 1 ppd X 58 years, started at age 23 Alcohol intake: never Housing: Assisted Living Facility Vitals/I&O/Wt Last Vital Signs Temp 99.3 F 05/13/22 18:07 Pulse 105 H 05/14/22 00:17 Resp 20 H 05/14/22 00:17 BP 109/67 05/13/22 18:07 Pulse Ox 98 05/14/22 00:17 Weight last 48 hrs Weight 49.895 kg Physical Exam Const: COMMON NORMALS: patient oriented x3 HENMT: COMMON NORMALS: normocephalic and atraumatic HEAD & SCALP: normocephalic and atraumatic Resp: EFFORT & INSPECTION: Yes symmetric chest movement (b/l wheezing present in both lungs horta ) Cardio: COMMON NORMALS: regular rate, regular rhythm, S1 normal heart sound present, S2 normal heart sound present, No gallops present (Cardio), No murmurs present (Cardio), No rub (Cardio) and Peripheral pulses 2+ throughout RATE: regular rate RHYTHM: regular rhythm HEART SOUNDS: S1 normal heart sound present and S2 normal heart sound present PERIPHERAL PULSES: Peripheral pulses 2+ throughout GI: COMMON NORMALS: Normal to inspection, nondistended, normoactive bowel sounds present, Soft to palpation, non-tender, No hepatosplenomegaly present and no masses AUSCULTATION: Yes normoactive bowel sounds PALPATION: Yes Soft to palpation and Yes No hepatosplenomegaly present RECTAL EXAM: deferred Extremity: COMMON NORMALS: no clubbing, cyanosis or edema and no pedal edema Neuro: COMMON NORMALS: patient oriented x3 Data : 05/13/22 22:17 05/13/22 22:17 A&P Assessment and plan (1) Chronic respiratory failure with hypoxia: Status: Acute (2) Lung mass: Status: Acute (3) Atrial flutter: Status: Acute Qualifiers: Atrial flutter type: typical Qualified Code(s): I48.3 - Typical atrial flutter (4) COPD (chronic obstructive pulmonary disease): Status: Acute Qualifiers: COPD type: chronic bronchitis Chronic bronchitis type: simple Quali fied Code(s): J41.0 - Simple chronic bronchitis (5) S/P CABG (coronary artery bypass graft): Status: Acute (6) CAD (coronary artery disease): Status: Acute (7) Pneumonia: Status: Acute (8) Essential hypertension: Status: Acute Plan 82 year old female with PMH of coronary artery disease status post CABG HERNANDEZ to LAD and SVG to PDA?, Hypertension Atrial fibrillation not on anticoagulation COPD on 3 L home oxygen, Ca lung currently on radiation therapy (completed the last 10th session of radiation therapy recently) came in with chief complaint of after experiencing a fall at home while she was walking in the from what she states me regarding the fall looks like it is a mechanical fall , she is also complaining of shortness of breath particularly with exertion, cough with greenish sputum production as well as subjective fever at home. Assessment: Acute on chronic respiratory failure with hypoxia multifactorial likely secondary to pneumonia, decompensated heart failure, possible radiation pneumonitis: Right 9th rib fracture coronary artery disease status post CABG HERNANDEZ to LAD and SVG to PDA?, Hypertension Atrial fibrillation COPD , HFpEF Ca lung currently on radiation therapy. Plan: Follow blood culture Sputum gram stain and culture MRSA PCR Urine Legionella antigen Bacterial antigen panel Continue Vanco and Zosyn for now We will add Solu-Medrol for possible radiation pneumonitis DuoNebs Supplemental oxygen as needed Lasix 40 mg IV twice daily Intake output charting Daily weight Telemetry monitoring K>4,MG>2 Incentive spirometer Flutter valve Continue aspirin, amlodipine, metoprolol Lovenox for DVT prophylaxis CODE STATUS: Limited resuscitation Attestations Medical Necessity Statement*: Patient needs to in hospital for management of acute on chronic respiratory failure. Anticipated length of stay greater than 2 midnight Time Spent in Patient Care: Greater than 35 minutes (>than 50% of time spent in counselling and/or direct pt care on unit) . Coding Level of Care Code Acute [employer] W[employer] Consultant for Chg Fwd Exam Detailed Diagnoses Chronic respiratory failure with hypoxia J96.11 Lung mass R91.8 Atrial flutter I48.3 Atrial flutter type: typical COPD (chronic obstructive pulmonary disease) J41.0 COPD type: chronic bronchitis Chronic bronchitis type: simple S/P CABG (coronary artery bypass graft) Z95.1 CAD (coronary artery disease) I25.10 Pneumonia J18.9 Essential hypertension I10
[2022-05-14] MEDS: morphine 4 mg/mL SDV 1 mL 2 MG IVP (01:51)
[2022-05-14] MEDS: enoxaparin 40 mg/0.4 mL Syringe SUBCUT (01:53)
[2022-05-14 02:23] LABS: Adenovirus Not Detected (NOT DETECT); Chlamydia Pneumoniae Not Detected (NOT DETECT); Coronavirus 229E,HKU1,NL63,OC4 Not Detected (NOT DETECT); Human Metapneumovirus Not Detected (NOT DETECT); Human Rhinovirus/Enterovirus Not Detected (NOT DETECT); Influenza A Not Detected (NOT DETECT); Influenza A H1 Not Detected (NOT DETECT); Influenza A H1-2009 Not Detected (NOT DETECT); Influenza A H3 Not Detected (NOT DETECT); Influenza B Not Detected (NOT DETECT); Mycoplasma Pneumoniae Not Detected (NOT DETECT); Parainfluenza Virus Type 1 Not Detected (NOT DETECT); Parainfluenza Virus Type 2 Not Detected (NOT DETECT); Parainfluenza Virus Type 3 Not Detected (NOT DETECT); Parainfluenza Virus Type 4 Not Detected (NOT DETECT); Respiratory Syncytial Virus A Not Detected (NOT DETECT); Respiratory Syncytial Virus B Not Detected (NOT DETECT); SARS-COV-2 Not Detected (NOT DETECT)
[2022-05-14] MEDS: ipratropium-albuterol 3 mL Neb INHALATION ×6 (03:15→23:57)
--- NOTE | 2022-05-14 03:29 | PC.PHAR ---
Vancomycin is dosed at 1gm IVPB every 24 hours to produce a predicted trough level of 18.13 (population based pharmacokinetic analysis). A trough level has been ordered from the lab to be obtained before the four dose to confirm and adjust if needed.
[2022-05-14] MEDS: vancomycin 1,000 MG in sodium chloride 0.9% 250 ML 250 MG IV (03:30)
--- NOTE | 2022-05-14 03:44 | ECG_ITS ---
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 Measurements Intervals [place] Rate: 105 P: [place]: QRS: -5 QRSD: 92 T: 31 QT: 342 QTc: 453 Interpretive Statements ATRIAL FIBRILLATION WITH RAPID VENTRICULAR RESPONSE INCOMPLETE RIGHT BUNDLE BRANCH BLOCK [90+ ms QRS DURATION, TERMINAL R IN V1/V2, 40+ ms S IN I/aVL/V4/V5/V6] NONSPECIFIC ST & T-WAVE ABNORMALITY Compared to ECG 05/14/2022 02:34:23 Incomplete right bundle-branch block now present T-wave abnormality still present Electronically Signed On 05-14-2022 12:32:29 CDT by Lawrence Smith M.D. [id number]
[2022-05-14 06:48] LABS: Troponin 5 6HR 26.72 ng/L (0-10)
[2022-05-14 06:57] LABS: Troponin 5 6HR Delta 2.72 ng/L (0-12)
[2022-05-14] MEDS: potassium chloride ER 20 mEq Tablet 40 MEQ PO (08:22)
[2022-05-14] MEDS: amlodipine 10 mg Tablet PO (08:22)
[2022-05-14] MEDS: metoprolol tartrate 25 mg Tablet PO ×2 (08:22→17:24)
[2022-05-14] MEDS: aspirin 81 mg EC Tablet PO (08:23)
[2022-05-14] MEDS: piperacillin-tazobactam 3.375 GM in sodium chloride 0.9% (plus) 50 ML IV ×2 (08:25→15:04)
--- NOTE | 2022-05-14 11:59 | PM.PN ---
Subjective Subjective: She reports she is feeling slightly better. Breathing a little bit easier, although still dyspneic. Coughing some?nonproductive. Vitals/I&O/Wt Last Vital Signs Temp 99.3 F 05/13/22 18:07 Pulse 88 05/14/22 11:09 Resp 18 05/14/22 11:09 BP 108/57 05/14/22 05:00 Pulse Ox 94 05/14/22 11:09 05/13/22 05/14/22 05/14/22 22:59 06:59 14:59 Intake Total 800 / 800 180 / 180 Output Total 1200 / 1200 Balance -400 / -400 180 / 180 Weight last 48 hrs Weight 56.382 kg Weight 49.895 kg Physical Exam Narrative: NC Const: COMMON NORMALS: alert GENERAL APPEARANCE: cooperative ORIENTATION/CONSCIOUSNESS: Yes awake HENMT: COMMON NORMALS: normocephalic, EAC's normal, Normal external nose present and moist oral mucous membranes HEAD & SCALP: normocephalic NOSE: Normal external nose present EXTERNAL AUDITORY CANAL: EAC's normal Neck/C-Spine: COMMON NORMALS: no meningeal signs Chest: CHEST: Yes Symmetrical chest wall rise Resp: AUSCULTATION: rhonchi and wheezes Cardio: COMMON NORMALS: regular rate, regular rhythm and No murmurs present (Cardio) RATE: regular rate RHYTHM: regular rhythm GI: COMMON NORMALS: Normal to inspection, nondistended, normoactive bowel sounds present, Soft to palpation and non-tender PALPATION: Yes Soft to palpation Extremity: COMMON NORMALS: no pedal edema Neuro: COMMON NORMALS: moves all extremities SENSORIUM/ORIENTATION: Yes alert MENINGEAL SIGNS: Yes no meningeal signs Psych: COMMON NORMALS: mental status grossly normal Skin: COMMON NORMALS: no wounds RASHES: no rashes Data : 05/13/22 22:17 05/13/22 22:17 Micro: Microbiology 05/14/22 05:54 Blood Culture - Preliminary Blood SPECIMEN COLLECTED 05/14/22 05:50 Blood Culture - Preliminary Blood SPECIMEN COLLECTED A&P Assessment and plan (1) Chronic respiratory failure with hypoxia: Continue assessment and management of pneumonia, continue antibiotics, was also started on steroids for severe pneumonia. With concern for possible radiation pneumonitis. Continue neb treatments. Continue nasal cannula oxygen support. Wean down as tolerating. And I-S. Continue supportive measures. Follow-up MRSA PCR, bacterial antigens. Sputum culture. Overflow in ICU, can move to medical surgical floor anytime a bed is available. Status: Acute (2) Lung mass: Status: Acute (3) Atrial flutter: Status: Acute Qualifiers: Atrial flutter type: typical Qualified Code(s): I48.3 - Typical atrial flutter (4) COPD (chronic obstructive pulmonary disease): Status: Acute Qualifiers: COPD type: chronic bronchitis Chronic bronchitis type: simple Qualified Code(s): J41.0 - Simple chronic bronchitis (5) S/P CABG (coronary artery bypass graft): Status: Acute (6) CAD (coronary artery disease): Status: Acute (7) Pneumonia: Status: Acute (8) Essential hypertension: Status: Acute Plan 82 year old female with PMH of coronary artery disease status post CABG HERNANDEZ to LAD and SVG to PDA?, Hypertension Atrial fibrillation not on anticoagulation COPD on 3 L home oxygen, Ca lung currently on radiation therapy (completed the last 10th session of radiation therapy recently) came in with chief complaint of after experiencing a fall at home while she was walking in the from what she states me regarding the fall looks like it is a mechanical fall , she is also complaining of shortness of breath particularly with exertion, cough with greenish sputum production as well as subjective fever at home. Attestations Medical Necessity Statement*: Continue admission for cyst management of acute on chronic hypoxic respite failure, pneumonia. Coding Level of Care Code [facility] Diagnoses Chronic respiratory failure with hypoxia J96.11 Lung mass R91.8 Atrial flutter I48.3 Atrial flutter type: typical COPD (chronic obstructive pulmonary disease) J41.0 COPD type: chronic bronchitis Chronic bronchitis type: simple S/P CABG (coronary artery bypass graft) Z95.1 CAD (coronary artery disease) I25.10 Pneumonia J18.9 Essential hypertension I10
--- NOTE | 2022-05-14 16:30 | PC.NURSE ---
Patient received from ICU O2 per nasal cannula at 4 L. Patient c/o right rib and back pain. Patient's family at bedside.
--- NOTE | 2022-05-14 16:37 | PC.NURSE ---
patient transferred to [facility] at bedside
[2022-05-14] MEDS: HYDROcodone-acetaminophen 5-325 mg Tablet 1 TAB PO (16:45)
[2022-05-14] MEDS: lidocaine 5% Patch 1 PATCH TOPICAL ×2 (17:24→21:52)
[2022-05-14] MEDS: atorvastatin 40 mg Tablet 80 MG PO (20:08)
[2022-05-14] MEDS: acetaminophen 325 mg Tablet 650 MG PO (23:58)
[2022-05-15] VITALS (22 sets, daily range): BP systolic 100–120; BP diastolic 52–68; PULSE 0–110; RESP 15–18; TEMP 36.6–36.8; O2SAT 91–98
[2022-05-15] MEDS: piperacillin-tazobactam 3.375 GM in sodium chloride 0.9% (plus) 50 ML IV ×3 (00:01→17:24)
[2022-05-15] MEDS: enoxaparin 40 mg/0.4 mL Syringe SUBCUT (01:45)
[2022-05-15] MEDS: vancomycin 1,000 MG in sodium chloride 0.9% 250 ML 250 MG IV (03:49)
[2022-05-15] MEDS: ipratropium-albuterol 3 mL Neb INHALATION ×6 (04:37→23:43)
[2022-05-15 05:33] LABS: Hematocrit 29.2 % (37.0-47.0); Hemoglobin 8.8 g/dL (11.5-15.3); Lymphocytes # 0.2 10^3/uL (0.8-4.8); Lymphocytes % 3.7 %; Mean Corpuscular HGB Conc 30.1 g/dL (30.0-36.0); Mean Corpuscular Hemoglobin 21.9 pg (28.0-34.0); Mean Corpuscular Volume 72.8 fl (81-99); Mean Platelet Volume 8.4 fL (7.4-10.4); Monocytes # 0.1 10^3/uL (0.2-0.9); Monocytes % 2.6 %; Neutrophils # 4.24 10^3/uL (1.8-7.7); Neutrophils % 93.3 %; Nucleated Red Blood Cells % 0 %; Platelet Count 222 10^3/cmm (130-400); Red Blood Count 4.01 10^6/uL (4.1-5.3); Red Cell Distribution Width 17.2 % (12.1-15.1); White Blood Count 4.6 10^3/uL (4.0-10.0)
[2022-05-15 05:56] LABS: Alanine Aminotransferase 13 U/L (0-33); Albumin Level 2.7 g/dL (3.5-5.2); Alkaline Phosphatase 119 IU/L (35-105); Anion Gap 10.4 (5-19); Aspartate Amino Transferase 17 U/L (0-32); Blood Urea Nitrogen 15 mg/dL (8-23); Calcium 8.5 mg/dL (8.5-10.5); Carbon Dioxide 40 mmol/L (22-29); Chloride 89 mmol/L (98-107); Globulin 3.1 g/dL (1.3-4.6); Glucose 174 mg/dL (65-115); Magnesium 1.3 mg/dL (1.7-2.3); Osmolality Calculated 287 mOsm/kg (285-295); Potassium 3.4 mmol/L (3.5-5.1); Sodium 136 mmol/L (136-145); Total Bilirubin 0.5 mg/dL (0.15-1.2); Total Protein 5.8 g/dL (6.6-8.7)
[2022-05-15 06:00] LABS: Procalcitonin 0.13 ng/mL (0-0.5)
[2022-05-15] MEDS: FUROsemide 10 mg/mL SDV 4mL 40 MG IVP ×2 (06:24→09:15)
[2022-05-15] MEDS: HYDROcodone-acetaminophen 5-325 mg Tablet 1 TAB PO ×3 (06:28→19:21)
[2022-05-15] MEDS: lidocaine 5% Patch 1 PATCH TOPICAL (08:14)
[2022-05-15] MEDS: potassium chloride ER 20 mEq Tablet 40 MEQ PO (08:14)
[2022-05-15] MEDS: amlodipine 10 mg Tablet PO (08:14)
[2022-05-15] MEDS: aspirin 81 mg EC Tablet PO (08:14)
[2022-05-15] MEDS: metoprolol tartrate 25 mg Tablet PO ×2 (08:14→17:24)
[2022-05-15] MEDS: magnesium sulfate premix 4 GM/100 ML PREMIX IV (09:15)
--- NOTE | 2022-05-15 10:32 | PC.CHAP ---
Pastoral Care Encounter/Spiritual Assessment Type of Contact [] Declined hose seamer visit [] Patient/Family/Request visit [] Outpatient visit [] Follow-up visit [] Physician referral [] Code/Alert [x] Routine visit [] Staff referral [] Actively dying [] Patient sleeping [] Family support [] [] Out of room [] Palliative care [] [] Receiving care in room [] Pre-surgical visit [] Trauma [] Long length of stay [] ICU visit [] Other: Relational/Emotional Strength [x] Patient feels connected with others/family/visitors/staff [] Distress [] Loneliness/isolation [] Abandonment Spirituality of Patient [x] Person of Teresa [x] Attends Buddhist of their Teresa [x] Believes in Prayer [] Reads Bible or Sikh materials [] There are Spiritual issues to be addressed Full Stack Python Developer Interventions [x] Prayer [x] Active listening [x] Non-anxious presence [x] Spiritual/emotional support [] Crisis/trauma care [x] Spiritual counseling [] Bereavement support [] Provided bereavement packet [] Provided Bible/devotional materials [] Provided toy/stuffed animal, coloring book to patient or family member [] Provided Communion [] Anointing/Jewell [] Salvation [x] Completed spiritual assessment [] Other: Impact on Illness or Injury [] Angry [] Fearful [] Anxious [] Often cries [] Exhaustion [] Unable to work [] Unable to attend zoroastrianism [] Unable to walk/stand [] Unable to read [] Unable to drive [] Unable to eat/drink [] Unable to sleep [] Unable to be with family [] Patient intubated [] Other: Summary Time spent with patient 10 min
[2022-05-15] MEDS: morphine 4 mg/mL SDV 1 mL 2 MG IVP (10:36)
[2022-05-15] MEDS: guaiFENesin 600 mg Tablet PO ×2 (13:39→17:24)
--- NOTE | 2022-05-15 14:01 | P.PN_ITS ---
Subjective Subjective: Patient was seen this morning, she tells me that she continues to have shortness of breath, productive cough, no fevers overnight, she does tell me at times she has trouble swallowing, this all started after radiation therapy Vitals/I&O/Wt Last Vital Signs Temp 97.8 F 05/15/22 12:00 Pulse 88 05/15/22 12:00 Resp 17 05/15/22 12:00 BP 119/63 05/15/22 12:00 Pulse Ox 96 05/15/22 12:00 05/14/22 05/15/22 05/15/22 22:59 06:59 14:59 Intake Total 170 / 600 300 / 900 150 / 150 Balance 170 / 600 300 / 900 150 / 150 Weight last 48 hrs Weight 42.456 kg Weight 56.382 kg Weight 49.895 kg Physical Exam Const: COMMON NORMALS: no acute distress and patient oriented x3 Resp: COMMON NORMALS: normal respiratory effort, No retractions and No use of accessory muscles AUSCULTATION: wheezes Cardio: COMMON NORMALS: regular rate, regular rhythm, S1 normal heart sound present and S2 normal heart sound present RATE: regular rate RHYTHM: regular rhythm HEART SOUNDS: S1 normal heart sound present and S2 normal heart sound present GI: COMMON NORMALS: Normal to inspection, nondistended, normoactive bowel sounds present, Soft to palpation and non-tender PALPATION: Yes Soft to palpation Extremity: COMMON NORMALS: no pedal edema Neuro: COMMON NORMALS: patient oriented x3 Psych: COMMON NORMALS: mental status grossly normal Data : 05/15/22 04:22 05/15/22 04:22 Micro: Microbiology 05/15/22 00:10 Gram Stain - Final Sputum - Expectorated Sputum 05/14/22 05:54 Blood Culture - Preliminary Blood NEGATIVE TO DATE 05/14/22 05:50 Blood Culture - Preliminary Blood NEGATIVE TO DATE 05/14/22 Unknown Legionella Urinary Antigen - Final Urine,Clean Catch Bacterial Antigens - Final 05/14/22 06:32 MRSA Culture - Final Nose A&P Assessment and plan (1) Chronic respiratory failure with hypoxia: Continue assessment and management of pneumonia, continue antibiotics, was also started on steroids for severe pneumonia. With concern for possible radiation pneumonitis. Continue neb treatments. Continue nasal cannula oxygen support. Wean down as tolerating. And I-S. Continue supportive measures. Follow-up MRSA PCR, bacterial antigens. Sputum culture. Mucinex for cough Consult speech therapy possible aspiration Status: Acute (2) Lung mass: Status: Acute (3) Atrial flutter: Status: Acute Qualifiers: Atrial flutter type: typical Qualified Code(s): I48.3 - Typical atrial flutter (4) COPD (chronic obstructive pulmonary disease): Status: Acute Qualifiers: COPD type: chronic bronchitis Chronic bronchitis type: simple Qualified Code(s): J41.0 - Simple chronic bronchitis (5) S/P CABG (coronary artery bypass graft): Status: Acute (6) CAD (coronary artery disease): Status: Acute (7) Pneumonia: Status: Acute (8) Essential hypertension: Status: Acute Plan 82 year old female with PMH of coronary artery disease status post CABG HERNANDEZ to LAD and SVG to PDA?, Hypertension Atrial fibrillation not on anticoagulation COPD on 3 L home oxygen, Ca lung currently on radiation therapy (completed the last 10th session of radiation therapy recently) came in with chief complaint of after experiencing a fall at home while she was walking in the from what she states me regarding the fall looks like it is a mechanical fall , she is also complaining of shortness of breath particularly with exertion, cough with greenish sputum production as well as subjective fever at home. Rib fracture, ninth rib fracture Attestations Medical Necessity Statement*: Patient requires hospitalization for pneumonia, radiation pneumonitis, ninth rib fracture Coding Level of Care Code Acute Medical Videographer for [facility] Fwd Diagnoses Chronic respiratory failure with hypoxia J96.11 Lung mass R91.8 Atrial flutter I48.3 Atrial flutter type: typical COPD (chronic obstructive pulmonary disease) J41.0 COPD type: chronic bronchitis Chronic bronchitis type: simple S/P CABG (coronary artery bypass graft) Z95.1 CAD (coronary artery disease) I25.10 Pneumonia J18.9 Essential hypertension I10
[2022-05-15] MEDS: atorvastatin 40 mg Tablet 80 MG PO (19:21)
[2022-05-16] VITALS (17 sets, daily range): BP systolic 106–120; BP diastolic 57–69; PULSE 71–105; RESP 14–18; TEMP 36.4–36.7; O2SAT 87–98
[2022-05-16] MEDS: HYDROcodone-acetaminophen 5-325 mg Tablet 1 TAB PO ×3 (00:46→20:25)
[2022-05-16] MEDS: enoxaparin 40 mg/0.4 mL Syringe SUBCUT (00:47)
[2022-05-16] MEDS: piperacillin-tazobactam 3.375 GM in sodium chloride 0.9% (plus) 50 ML IV ×3 (00:47→15:53)
[2022-05-16] MEDS: ipratropium-albuterol 3 mL Neb INHALATION ×5 (03:11→19:23)
[2022-05-16 03:40] LABS: Hematocrit 30.7 % (37.0-47.0); Lymphocytes # 0.1 10^3/uL (0.8-4.8); Lymphocytes % 1.5 %; Mean Corpuscular HGB Conc 29.3 g/dL (30.0-36.0); Mean Corpuscular Hemoglobin 21.7 pg (28.0-34.0); Mean Corpuscular Volume 74.2 fl (81-99); Mean Platelet Volume 8.2 fL (7.4-10.4); Monocytes # 0.2 10^3/uL (0.2-0.9); Monocytes % 2.4 %; Neutrophils % 95.6 %; Nucleated Red Blood Cells % 0 %; Platelet Count 244 10^3/cmm (130-400); Red Blood Count 4.14 10^6/uL (4.1-5.3); Red Cell Distribution Width 17.5 % (12.1-15.1); White Blood Count 8.5 10^3/uL (4.0-10.0)
[2022-05-16 03:57] LABS: Vancomycin Trough 5.4 ug/mL (10-15)
[2022-05-16 04:10] LABS: NT Pro B Type Natriuretic Pept 3300 pg/mL (0-450); Procalcitonin 0.11 ng/mL (0-0.5)
--- NOTE | 2022-05-16 04:22 | PC.NURSE ---
Addendum entered by Oly Lyon RN 05/16/22 04:25: Second result 6.0 per lab. Pharmacy stated to go ahead and run current bag. Original Note: Vanc trough 5.4. Pharmacy notified. Pharmacy called lab to have it re-ran. Awaiting results.
[2022-05-16] MEDS: vancomycin 1,000 MG in sodium chloride 0.9% 250 ML 250 MG IV ×2 (04:27→22:09)
[2022-05-16 04:31] LABS: Alanine Aminotransferase 14 U/L (0-33); Alkaline Phosphatase 119 IU/L (35-105); Anion Gap 9.6 (5-19); Aspartate Amino Transferase 16 U/L (0-32); Blood Urea Nitrogen 16 mg/dL (8-23); C Reactive Protein 31.4 mg/L (0.0-4.9); Calcium 8.9 mg/dL (8.5-10.5); Chloride 87 mmol/L (98-107); Globulin 2.8 g/dL (1.3-4.6); Glucose 177 mg/dL (65-115); Magnesium 2.3 mg/dL (1.7-2.3); Osmolality Calculated 286 mOsm/kg (285-295); Phosphorus 3.2 mg/dL (2.5-4.5); Potassium 3.6 mmol/L (3.5-5.1); Sodium 135 mmol/L (136-145); Total Bilirubin 0.5 mg/dL (0.15-1.2); Total Protein 5.8 g/dL (6.6-8.7)
[2022-05-16 04:55] LABS: Carbon Dioxide 42 mmol/L (22-29)
--- NOTE | 2022-05-16 04:59 | PC.PHAR ---
[id number] vancomycin: Trough 5.4. Questioned value with patient current dose/freq. Lab rerun returned value of 6.0. Pt currently at 1,000 mg (23 mg/kg) q 24 h. Will reevaluate dose/frequency but will draw random before next scheduled dose.
[2022-05-16 06:57] LABS: Glucose Point of Care 209 mg/dL (70-110)
[2022-05-16] MEDS: aspirin 81 mg EC Tablet PO (08:04)
[2022-05-16] MEDS: FUROsemide 10 mg/mL SDV 4mL 40 MG IVP (08:05)
[2022-05-16] MEDS: lidocaine 5% Patch 1 PATCH TOPICAL (08:05)
[2022-05-16] MEDS: metoprolol tartrate 25 mg Tablet PO ×2 (08:05→16:59)
[2022-05-16] MEDS: guaiFENesin 600 mg Tablet PO ×2 (08:05→16:59)
[2022-05-16] MEDS: amlodipine 10 mg Tablet PO (08:05)
[2022-05-16] MEDS: potassium chloride ER 20 mEq Tablet 40 MEQ PO (08:05)
[2022-05-16] MEDS: bisacodyl 5 mg Tablet 10 MG PO (08:52)
--- NOTE | 2022-05-16 18:52 | PM.PN ---
Subjective Subjective: Patient was seen this morning, she continues to complain of some choking, gagging, some acid reflux, denies any fevers, chills, her productive cough has improved, she tells me she continues to feel weak, she is now ready to go home, she tells me that she has 5 daughters and many granddaughters, they are working at home to figure out who can help take care of her when she comes home, Vitals/I&O/Wt Last Vital Signs Temp 98.1 F 05/16/22 16:00 Pulse 105 H 05/16/22 16:00 Resp 16 05/16/22 16:00 BP 112/57 05/16/22 16:00 Pulse Ox 87 L 05/16/22 16:00 05/16/22 05/16/22 05/16/22 06:59 14:59 22:59 Intake Total 300 / 500 50 / 50 Output Total 400 / 400 300 / 300 Balance -100 / 100 -250 / -250 Weight last 48 hrs Weight 42.456 kg Physical Exam Const: COMMON NORMALS: no acute distress and patient oriented x3 Resp: COMMON NORMALS: normal respiratory effort, No retractions and No use of accessory muscles AUSCULTATION: wheezes Cardio: COMMON NORMALS: regular rate, regular rhythm, S1 normal heart sound present and S2 normal heart sound present RATE: regular rate RHYTHM: regular rhythm HEART SOUNDS: S1 normal heart sound present and S2 normal heart sound present GI: COMMON NORMALS: Normal to inspection, nondistended, normoactive bowel sounds present, Soft to palpation, non-tender and No hepatosplenomegaly present PALPATION: Yes Soft to palpation and Yes No hepatosplenomegaly present Extremity: COMMON NORMALS: no pedal edema Neuro: COMMON NORMALS: patient oriented x3 Psych: COMMON NORMALS: mental status grossly normal Data : 05/16/22 03:26 05/16/22 03:26 Micro: Microbiology 05/15/22 00:10 Gram Stain - Final Sputum - Expectorated Sputum Sputum Culture - Preliminary A&P Assessment and plan (1) Chronic respiratory failure with hypoxia: Continue assessment and management of pneumonia, continue antibiotics, was also started on steroids for severe pneumonia. With concern for possible radiation pneumonitis. Continue neb treatments. Continue nasal cannula oxygen support. Wean down as tolerating. And I-S. Continue supportive measures. Blood cultures so far negative Mucinex for cough Status: Acute (2) Lung mass: Status: Acute (3) Atrial flutter: Status: Acute Qualifiers: Atrial flutter type: typical Qualified Code(s): I48.3 - Typical atrial flutter (4) COPD (chronic obstructive pulmonary disease): Status: Acute Qualifiers: COPD type: chronic bronchitis Chronic bronchitis type: simple Qualified Code(s): J41.0 - Simple chronic bronchitis (5) S/P CABG (coronary artery bypass graft): Status: Acute (6) CAD (coronary artery disease): Status: Acute (7) Pneumonia: Status: Acute (8) Essential hypertension: Status: Acute Plan 82 year old female with PMH of coronary artery disease status post CABG HERNANDEZ to LAD and SVG to PDA?, Hypertension Atrial fibrillation not on anticoagulation COPD on 3 L home oxygen, Ca lung currently on radiation therapy (completed the last 10th session of radiation therapy recently) came in with chief complaint of after experiencing a fall at home while she was walking in the from what she states me regarding the fall looks like it is a mechanical fall , she is also complaining of shortness of breath particularly with exertion, cough with greenish sputum production as well as subjective fever at home. 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
[2022-05-16] MEDS: atorvastatin 40 mg Tablet 80 MG PO (20:14)
--- NOTE | 2022-05-16 20:44 | PC.NURSE ---
Upon my arrival on shift, patient had IV to right wrist and did not have IV to left AC.
[2022-05-16 21:37] LABS: Vancomycin Trough 11.8 ug/mL (10-15)
[2022-05-17] VITALS (15 sets, daily range): BP systolic 100–134; BP diastolic 57–71; PULSE 69–101; RESP 16–20; TEMP 36.4–36.9; O2SAT 90–97; BMI 16.8
[2022-05-17] MEDS: ipratropium-albuterol 3 mL Neb INHALATION ×6 (00:17→20:17)
[2022-05-17] MEDS: enoxaparin 40 mg/0.4 mL Syringe SUBCUT ×2 (00:50→22:49)
[2022-05-17] MEDS: piperacillin-tazobactam 3.375 GM in sodium chloride 0.9% (plus) 50 ML IV ×4 (00:51→22:49)
[2022-05-17] MEDS: HYDROcodone-acetaminophen 5-325 mg Tablet 1 TAB PO ×2 (03:03→16:24)
[2022-05-17 04:28] LABS: Basophils % 0.1 %; Hemoglobin 8.6 g/dL (11.5-15.3); Lymphocytes # 0.2 10^3/uL (0.8-4.8); Lymphocytes % 2.1 %; Mean Corpuscular HGB Conc 29.7 g/dL (30.0-36.0); Mean Corpuscular Hemoglobin 22.1 pg (28.0-34.0); Mean Corpuscular Volume 74.4 fl (81-99); Mean Platelet Volume 8.2 fL (7.4-10.4); Monocytes # 0.2 10^3/uL (0.2-0.9); Monocytes % 2.7 %; Neutrophils # 6.75 10^3/uL (1.8-7.7); Neutrophils % 94.7 %; Nucleated Red Blood Cells % 0 %; Platelet Count 216 10^3/cmm (130-400); Red Cell Distribution Width 17.5 % (12.1-15.1); White Blood Count 7.1 10^3/uL (4.0-10.0)
[2022-05-17 04:51] LABS: C Reactive Protein 19.7 mg/L (0.0-4.9); Magnesium 2.4 mg/dL (1.7-2.3); Phosphorus 2.9 mg/dL (2.5-4.5)
[2022-05-17 05:02] LABS: NT Pro B Type Natriuretic Pept 3036 pg/mL (0-450); Procalcitonin 0.09 ng/mL (0-0.5)
[2022-05-17 05:13] LABS: Alanine Aminotransferase 13 U/L (0-33); Alkaline Phosphatase 120 IU/L (35-105); Anion Gap 9.9 (5-19); Aspartate Amino Transferase 17 U/L (0-32); Blood Urea Nitrogen 21 mg/dL (8-23); Calcium 8.7 mg/dL (8.5-10.5); Carbon Dioxide 40 mmol/L (22-29); Chloride 90 mmol/L (98-107); Globulin 2.6 g/dL (1.3-4.6); Glucose 172 mg/dL (65-115); Osmolality Calculated 289 mOsm/kg (285-295); Potassium 3.9 mmol/L (3.5-5.1); Sodium 136 mmol/L (136-145); Total Bilirubin 0.5 mg/dL (0.15-1.2); Total Protein 5.6 g/dL (6.6-8.7)
[2022-05-17] MEDS: potassium chloride ER 20 mEq Tablet 40 MEQ PO (08:28)
[2022-05-17] MEDS: aspirin 81 mg EC Tablet PO (08:29)
[2022-05-17] MEDS: acetaminophen 325 mg Tablet 650 MG PO (08:29)
[2022-05-17] MEDS: amlodipine 10 mg Tablet PO (08:29)
[2022-05-17] MEDS: metoprolol tartrate 25 mg Tablet PO ×2 (08:29→17:04)
[2022-05-17] MEDS: lidocaine 5% Patch 1 PATCH TOPICAL (08:35)
[2022-05-17] MEDS: FUROsemide 10 mg/mL SDV 4mL 40 MG IVP (08:37)
--- NOTE | 2022-05-17 09:25 | PC.SOCIAL ---
IMM update IMM updated with patient at bedside. Copy Pg 2 provided. Verbalized an understanding. Initialled, dated, timed, and placed in chart.
--- NOTE | 2022-05-17 09:30 | FL_ITS ---
WS: [id number] FL barium swallow modifd [id number] REASON FOR EXAM: Oral dysphagia FLUOROSCOPY TIME: 4min [id number] # OF SPOT FILMS: 1 FINDINGS: The swallowing of barium of varying consistencies was performed with the patient in the sitting uprig ht position. Video fluoroscopy recording the swallowing from the oropharynx to the stomach. The exami nation was supervised by the speech therapy department. Speech therapy department will render detaile d report of the swallowing. No overt aspiration was identified. Below the aortic arch and the primary peristaltic wave breaks down into severe tertiary contractions which inhibits the passage of liquid barium but was overcome by more solid substances. There is a sl ightly irregular narrowing of the distal esophagus but this area allowed the passage of a 10 mm bariu m tablet into the stomach. FL/FL barium swallow modifd [id number] IMPRESSION: The swallowing report is pending from speech therapy. Significant esophageal motility with tertiary contractions inhibiting the passa ge of liquid barium in the subaortic thoracic esophagus. There is mild irregular narrowing of the distal most esophagus of uncertain ayaz ology. This could right leg to edema and inflammation or be subsequent to dista l esophageal dilatation. Correlation with clinical history to be made.
--- NOTE | 2022-05-17 14:50 | P.PN_ITS ---
Subjective Subjective: Patient was seen this morning she denies any shortness of breath, she tells me that she continues to have weakness, she is getting it arranged at home, one of her daughters will be with her at least once a day, as she has 5 daughters, she tells me that 2 of her daughters are endorsing, and she has a couple of granddaughters, she tells me that she has been having episodes of dysphagia since beginning of radiation therapy, it is only worsened, no hematemesis, no globus sensation, but intermittent dysphagia, Vitals/I&O/Wt Last Vital Signs Temp 98.1 F 05/17/22 11:46 Pulse 98 05/17/22 11:46 Resp 20 H 05/17/22 11:46 BP 110/57 05/17/22 11:46 Pulse Ox 90 05/17/22 11:46 05/16/22 05/17/22 05/17/22 22:59 06:59 14:59 Intake Total 50 / 100 300 / 400 50 / 50 Output Total 745 / 1045 Balance 50 / -200 -445 / -645 50 / 50 Weight last 48 hrs Weight 43.091 kg Physical Exam Const: COMMON NORMALS: no acute distress and patient oriented x3 Resp: COMMON NORMALS: normal respiratory effort, No retractions, No use of accessory muscles and clear to auscultation bilaterally AUSCULTATION: clear to auscultation bilaterally Cardio: COMMON NORMALS: regular rate, regular rhythm, S1 normal heart sound present and S2 normal heart sound present RATE: regular rate RHYTHM: regular rhythm HEART SOUNDS: S1 normal heart sound present and S2 normal heart sound present GI: COMMON NORMALS: Normal to inspection, nondistended, normoactive bowel sounds present, Soft to palpation and non-tender PALPATION: Yes Soft to palpation Extremity: COMMON NORMALS: no pedal edema Neuro: COMMON NORMALS: patient oriented x3 Psych: COMMON NORMALS: mental status grossly normal Data : 05/17/22 03:39 05/17/22 03:39 Micro: Microbiology 05/15/22 00:10 Gram Stain - Final Sputum - Expectorated Sputum Sputum Culture - Preliminary Yeast species A&P Assessment and plan (1) Chronic respiratory failure with hypoxia: Continue assessment and management of pneumonia, continue antibiotics, was also started on steroids for radiation Continue neb treatments. Continue nasal cannula oxygen support. Wean down as tolerating. And I-S. Continue supportive measures. Blood cultures so far negative Mucinex for cough De-escalate therapy to Zosyn De-escalate steroid therapy Barium swallow has been ordered Follow-up test results potential discharge in next 24 to 48 hours Status: Acute (2) Lung mass: Status: Acute (3) Atrial flutter: Status: Acute Qualifiers: Atrial flutter type: typical Qualified Code(s): I48.3 - Typical atrial flutter (4) COPD (chronic obstructive pulmonary disease): Status: Acute Qualifiers: COPD type: chronic bronchitis Chronic bronchitis type: simple Qualified Code(s): J41.0 - Simple chronic bronchitis (5) S/P CABG (coronary artery bypass graft): Status: Acute (6) CAD (coronary artery disease): Status: Acute (7) Pneumonia: Status: Acute (8) Essential hypertension: Status: Acute Plan 82 year old female with PMH of coronary artery disease status post CABG HERNANDEZ to LAD and SVG to PDA?, Hypertension Atrial fibrillation not on anticoagulation COPD on 3 L home oxygen, Ca lung currently on radiation therapy (completed the last 10th session of radiation therapy recently) came in with chief complaint of after experiencing a fall at home while she was walking in the from what she states me regarding the fall looks like it is a mechanical fall , she is also complaining of shortness of breath particularly with exertion, cough with greenish sputum production as well as subjective fever at home. Rib fracture, ninth rib fracture Does have complaints of intermittent dysphagia, will order barium swallow, possible radiation esophagitis or stricture can consider EGD based on clinical progress -He is receiving steroids Deconditioning, protein calorie malnutrition -Consult for PT OT -Home health care -Patient and family arranging safe discharge Attestations Medical Necessity Statement*: Patient requires hospitalization for pneumonia, radiation pneumonitis, rib fracture intermittent dysphagia Coding Level of Care Code Acute Type Copy Examiner for [facility] Fwd Diagnoses Chronic respiratory failure with hypoxia J96.11 Lung mass R91.8 Atrial flutter I48.3 Atrial flutter type: typical COPD (chronic obstructive pulmonary disease) J41.0 COPD type: chronic bronchitis Chronic bronchitis type: simple S/P CABG (coronary artery bypass graft) Z95.1 CAD (coronary artery disease) I25.10 Pneumonia J18.9 Essential hypertension I10
--- NOTE | 2022-05-17 17:18 | PM.CONSULT ---
Providers/Reason For Consult Consulting Physician/Specialty*: Dr. Taye Bae, DO Reason for Consult*: Dysphagia Attending Physician: Carlo Stinson MD Primary Care Provider: Manju Hebert History of Present Illness History of Present Illness Alyse Ang is a 82 year old female with lung cancer who recently completed radiation therapy. The last few weeks she has had difficulty swallowing even liquids sometimes. A modified barium swallow revealed tertiary contractions of the esophagus and minor narrowing of the distal esophagus. General surgery was consulted for EGD. Patient denies any abdominal pain. Denies any diarrhea or constipation. She does report dysphagia and emesis but denies hematemesis. Review of Systems General: Reports: 10 or more systems reviewed and unremarkable except in HPI and below Medications/Allergies Home Medications Medication Instructions Recorded Confirmed Last Taken Type aspirin 81 mg tablet,delayed 81 mg PO DAILY #90 tab 03/29/20 05/14/22 04/05/22 Rx release fluticasone fur. 100 mcg-umeclid 1 inh INHALATION DAILY 60 Days #60 02/23/22 05/14/22 04/06/22 Rx 62.5 mcg-vilant 25 mcg ea inhalat.powder (Trelegy Ellipta) tiotropium bromide 18 mcg capsule 1 cap INHALATION DAILY 30 Days #60 02/24/22 05/14/22 04/06/22 Rx with inhalation device (Spiriva inh with HandiHaler) lisinopril 10 mg tablet 10 mg PO DAILY 03/03/22 05/14/22 04/05/22 History metoprolol tartrate 25 mg tablet 25 mg PO BID 03/03/22 05/14/22 04/06/22 History amlodipine 10 mg tablet 10 mg PO DAILY 03/24/22 05/14/22 04/06/22 History budesonide-formoterol HFA 160 2 puff INHALATION Q12H 03/24/22 05/14/22 04/06/22 History mcg-4.5 mcg/actuation aerosol inhaler (Symbicort) hydrocodone 5 mg-acetaminophen 325 1 tab PO Q6H PRN #20 tab 03/27/22 05/14/22 Unknown Rx mg tablet prochlorperazine maleate 10 mg 10 mg PO Q4H PRN #30 tab 04/03/22 05/14/22 Unknown Rx tablet (Compazine) furosemide 20 mg tablet (Lasix) 20 mg PO DAILY 30 Days #30 tab 05/09/22 05/14/22 Unknown Rx levofloxacin 500 mg tablet 500 mg PO DAILY 7 Days #7 tab 05/10/22 05/14/22 Unknown Rx lorazepam 1 mg tablet 1 mg PO Q6H PRN #30 tab 05/10/22 05/14/22 Unknown Rx albuterol sulfate 2.5 mg INHALATION Q6H PRN 05/14/22 05/14/22 Unknown History furosemide 40 mg tablet 40 mg PO BID PRN 05/14/22 05/14/22 05/13/22 History rosuvastatin 20 mg tablet 20 mg PO DAILY 05/14/22 05/14/22 Unknown History Allergies Allergy/AdvReac Type Severity Reaction Status Date / Time cortisone Allergy Unknown Verified 05/10/22 13:59 doxycycline Allergy ADR-Itching Verified 05/10/22 13:59 Current Medications Generic Name Dose Route Start Last Admin Trade Name Freq PRN Reason Stop Dose Admin Acetaminophen 650 mg 05/14/22 01:06 05/17/22 08:29 Acetaminophen 325 Mg Tablet PO 650 mg Q6H PRN Administration Mild/Mod Pain Or Temp >/= 101 Hydrocodone Bitart/Acetaminophen 1 tab 05/14/22 01:09 05/17/22 16:24 Hydrocodone-Acetaminophen 5-325 Mg Tablet PO 1 tab Q6H PRN Administration pain Albuterol/Ipratropium 3 ml 05/14/22 04:00 05/17/22 15:33 Ipratropium-Albuterol 3 Ml Neb INHALATION 3 ml Q4H.RESPIRATORY GARRICK Administration Amlodipine Besylate 10 mg 05/14/22 09:00 05/17/22 08:29 Amlodipine 10 Mg Tablet PO 10 mg DAILY GARRICK Administration Aspirin 81 mg 05/14/22 09:00 05/17/22 08:29 Aspirin 81 Mg Ec Tablet PO 81 mg DAILY GARRICK Administration Atorvastatin Calcium 80 mg 05/14/22 21:00 05/16/22 20:14 Atorvastatin 40 Mg Tablet PO 80 mg BEDTIME GARRICK Administration Bisacodyl 10 mg 05/14/22 01:06 05/16/22 08:52 Bisacodyl 5 Mg Tablet PO 10 mg DAILY PRN Administration Constipation (see protocol) Protocol Enoxaparin Sodium 40 mg 05/14/22 01:15 05/17/22 00:50 Enoxaparin 40 Mg/0.4 Ml Syringe SUBCUT 40 mg Q24H GARRICK Administration Guaifenesin 600 mg 05/15/22 12:55 05/17/22 17:04 Guaifenesin 600 Mg Tablet PO Not Given BID GARRICK Piperacillin Sod/Tazobactam 50 mls @ 12.5 mls/hr 05/14/22 08:00 05/17/22 16:23 Sod 3.375 gm/ Sodium Chloride IV 12.5 mls/hr Q8H GARRICK Administration Protocol Lidocaine 1 patch 05/14/22 21:00 05/17/22 08:35 Lidocaine 5% Patch TOPICAL 1 patch [id number] GARRICK Administration Metoprolol Tartrate 25 mg 05/14/22 09:00 05/17/22 17:04 Metoprolol Tartrate 25 Mg Tablet PO 25 mg BID GARRICK Administration Morphine Sulfate 2 mg 05/14/22 02:08 05/15/22 10:36 Morphine 4 Mg/Ml Sdv 1 Ml IVP 2 mg Q4H PRN Administration SEVERE PAIN Non-Formulary Medication 1 inh 05/14/22 09:00 05/17/22 08:36 [id number] [Trelegy Ellipta] INHALATION Not Given DAILY [facility] Potassium Chloride 40 meq 05/14/22 09:00 05/17/22 08:28 Potassium Chloride Er 20 Meq Tablet PO 40 meq DAILY GARRICK Administration PFSH Acute PFSH: Medical History Atrial flutter Cancer of right lung COPD (chronic obstructive pulmonary disease) Coronary disease Dyslipidemia Essential hypertension Hypertension Surgical History History of colon resection for benign mass History of colonoscopy History of colostomy reversed History of partial hysterectomy Port-A-Cath in place (03/27/22) S/P CABG (coronary artery bypass graft) HERNANDEZ to LAD and saphenous vein graft to posterior descending artery of right coronary Family History Other CAD (coronary artery disease) Hyperlipidemia Hypertension Denies family history of Diabetes Clotting disorder Dementia Psychiatric illness Chronic kidney disease (CKD) Suicide Anesthesia complication Bleeding disorder Lung disease Cancer Stroke Social History Smoking and tobacco status: former smoker Quit status (tobacco): has quit using tobacco Year quit tobacco: 2020 Former quit date comment: 1 ppd X 58 years, started at age 23 Alcohol intake: never Housing: Assisted Living Facility Vitals/I&O/Wt Last Vital Signs Temp 98.2 F 05/17/22 15:38 Pulse 80 05/17/22 15:50 Resp 18 05/17/22 15:50 BP 111/62 05/17/22 15:38 Pulse Ox 95 05/17/22 15:50 05/17/22 05/17/22 05/17/22 06:59 14:59 22:59 Intake Total 300 / 400 50 / 50 Output Total 745 / 1045 750 / 750 Balance -445 / -645 50 / 50 -750 / -700 Weight last 48 hrs Weight 95 lb Physical Exam Narrative: General : Patient is well developed , no acute distress, oriented x3 Head : Normal cephalic, a-traumatic. Ears : Pinnae and external canal are normal. Hearing is normal. Eyes : PERRLA, Sclera and injection are normal. No conjunctival discharge. Nose : Mucous membranes are without erythema. Throat : buccal mucosa is normal, gums are without significant recession or hypertrophy. Lungs : Equal chest rise bilaterally, no use of accessory muscles, trachea is midline. Cor : Rate and rhythm are normal. Abdomen : Soft, ND, NT, no g/r/m Extremities : No edema, no cyanosis or clubbing, dorsalis pedis pulses are present bilaterally, non-tender to palpation of calves. Upper extremities are normal bilaterally. Back : non-tender to palpation, no CVA tenderness. Neuro : CN II - XII intact, Upper and lower extremities have equal and full strength Data : 05/17/22 03:39 05/17/22 03:39 Micro: Microbiology 05/15/22 00:10 Gram Stain - Final Sputum - Expectorated Sputum Sputum Culture - Preliminary Yeast species A&P Assessment and plan (1) Dysphagia: Status: Acute Plan EGD tomorrow around noon The risks and benefits of the procedure, including bleeding, infection, intestinal perforation requiring surgery, missed lesion, or explained to the patient. She is understanding of the risks and wishes to proceed. N.p.o. after midnight I am available for feeding tube placement if necessary Coding Level of Care Code Acute [employer]raw[employer]atswain for [facility] Fwd Diagnoses Dysphagia R13.10
[2022-05-17] MEDS: atorvastatin 40 mg Tablet 80 MG PO (20:08)
--- NOTE | 2022-05-17 20:10 | PC.NURSE ---
Patient answers correctly to person, place, and time, however patient seems to be getting dates/procedures mixed up. Patient states that her barium swallow was yesterday, not today. Patient states I'm having my EGD tonight, not tomorrow. Attempt to educated patient and patient does not agree.
--- NOTE | 2022-05-17 21:40 | PC.NURSE ---
Patient refusing to wear etiologist at this time.
--- NOTE | 2022-05-17 21:51 | PC.NURSE ---
Upon my arrival on shift, patient did not have IV to right wrist.
[2022-05-18] VITALS (18 sets, daily range): BP systolic 100–117; BP diastolic 58–78; PULSE 66–102; RESP 12–24; TEMP 36.4–36.7; O2SAT 90–98
[2022-05-18] MEDS: ipratropium-albuterol 3 mL Neb INHALATION ×5 (00:06→20:39)
[2022-05-18] MEDS: HYDROcodone-acetaminophen 5-325 mg Tablet 1 TAB PO ×2 (03:12→20:45)
[2022-05-18 03:42] LABS: Hematocrit 28.2 % (37.0-47.0); Hemoglobin 8.4 g/dL (11.5-15.3); Lymphocytes # 0.2 10^3/uL (0.8-4.8); Lymphocytes % 3.9 %; Mean Corpuscular HGB Conc 29.8 g/dL (30.0-36.0); Mean Corpuscular Volume 73.8 fl (81-99); Monocytes # 0.3 10^3/uL (0.2-0.9); Monocytes % 5.3 %; Neutrophils # 5.12 10^3/uL (1.8-7.7); Neutrophils % 89.9 %; Nucleated Red Blood Cells % 0 %; Platelet Count 195 10^3/cmm (130-400); Red Blood Count 3.82 10^6/uL (4.1-5.3); Red Cell Distribution Width 17.4 % (12.1-15.1); White Blood Count 5.7 10^3/uL (4.0-10.0)
[2022-05-18 04:05] LABS: NT Pro B Type Natriuretic Pept 3343 pg/mL (0-450); Procalcitonin 0.08 ng/mL (0-0.5)
[2022-05-18 04:16] LABS: Alanine Aminotransferase 14 U/L (0-33); Alkaline Phosphatase 112 IU/L (35-105); Anion Gap 9.8 (5-19); Aspartate Amino Transferase 17 U/L (0-32); Blood Urea Nitrogen 19 mg/dL (8-23); Calcium 8.5 mg/dL (8.5-10.5); Carbon Dioxide 39 mmol/L (22-29); Chloride 92 mmol/L (98-107); Globulin 2.6 g/dL (1.3-4.6); Glucose 148 mg/dL (65-115); Osmolality Calculated 289 mOsm/kg (285-295); Potassium 3.8 mmol/L (3.5-5.1); Sodium 137 mmol/L (136-145); Total Bilirubin 0.5 mg/dL (0.15-1.2); Total Protein 5.6 g/dL (6.6-8.7)
[2022-05-18 04:32] LABS: C Reactive Protein 13.3 mg/L (0.0-4.9); Magnesium 2.2 mg/dL (1.7-2.3); Phosphorus 2.7 mg/dL (2.5-4.5)
--- NOTE | 2022-05-18 09:21 | W.PM.OPSUD ---
Surgery/Procedure H&P Update DATE OF PROCEDURE: May 18, 2022 DATE H&P PERFORMED: 05/17/22 PREOP DIAGNOSIS: lung ca PLANNED PROCEDURE: Operation Date: 05/18/22 12:00 Proposed Procedures p EGD(Not Applicable) - Taye Bae DO
[2022-05-18] MEDS: potassium chloride ER 20 mEq Tablet 40 MEQ PO (09:25)
[2022-05-18] MEDS: predniSONE 20 mg Tablet 40 MG PO (09:26)
[2022-05-18] MEDS: FUROsemide 40 mg Tablet PO (09:26)
[2022-05-18] MEDS: guaiFENesin 600 mg Tablet PO ×2 (09:26→17:44)
[2022-05-18] MEDS: piperacillin-tazobactam 3.375 GM in sodium chloride 0.9% (plus) 50 ML IV ×2 (09:27→16:00)
[2022-05-18] MEDS: aspirin 81 mg EC Tablet PO (09:27)
[2022-05-18] MEDS: amlodipine 10 mg Tablet PO (09:27)
[2022-05-18] MEDS: lidocaine 5% Patch 1 PATCH TOPICAL (09:40)
[2022-05-18] MEDS: metoprolol tartrate 25 mg Tablet PO ×2 (09:40→17:44)
[2022-05-18] MEDS: sodium chloride 0.9% 1,000 ML 30 ML IV (11:39)
--- NOTE | 2022-05-18 11:52 | ANES.PREANE2 ---
Pre-Anesthetic Assessment Height/Weight: Height 1.6 m Weight 41.504 kg Temp Pulse Resp BP Pulse Ox 97.8 F 95 18 104/78 94 05/18/22 11:38 05/18/22 11:38 05/18/22 11:38 05/18/22 11:38 05/18/22 11:38 Preop Diagnosis: lung ca Operation Date: 05/18/22 12:00 Proposed Procedures p EGD(Not Applicable) - Taye Bae DO Familial anesthetic complications: none Was Beta Sharlene taken within 24 hours: Yes Was Clonidine taken within 24 hours: N/A Social Tobacco and No alcohol Exam alert, oriented x 3 and regular rate & rhythm wheezing b/l Airway Submandibular: within normal limits Cervical ROM: Other (Limited) Mallampati: Class II Comments: Comments: missing teeth Pulmonary Chronic Obstructive Pulmonary Disease, Exertional Dyspnea, Othopnea and Shortness of Breath Recently completed radiation treatment for lung cancer and has had difficulty swallowing since. Has COPD with respiratory failure on 3-4 LPM NC wiht NICOLE, SOB, and occasional orthopnea CV/HEM Atrial Fibrillation, Anemia, Arrythmia (aFlutter ), Coronary Artery Disease and Hypertension s/p ?CABG HERNANDEZ to LAD and SVG to PDA Elevated BNP EKG 05/14/22 Interpretive Statements ATRIAL FIBRILLATION WITH RAPID VENTRICULAR RESPONSE INCOMPLETE RIGHT BUNDLE BRANCH BLOCK? [90+ ms QRS DURATION, TERMINAL R IN V1/V2, 40+ ms S IN I/aVL/V4/V5/V6] NONSPECIFIC ST & T-WAVE ABNORMALITY Compared to ECG 05/14/2022 02:34:23 Incomplete right bundle-branch block now present T-wave abnormality still present Electronically Signed On 05-14-2022 12:32:29 CDT by Lawrence Smith M.D. [email or web address] TTE ?CONCLUSIONS ?Normal left ventricular size, systolic function and wall ?thickness, with no regional wall motion abnormalities. Grade ?II/IV diastolic dysfunction, moderately elevated filling ?pressures. Left ventricular ejection fraction is estimated at ?60%. ?Mildly increased right atrial size. ?Moderately increased left atrial size.? 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 ?Structurally normal mitral valve. Mild mitral valve ?regurgitation. ?There are no prior echocardiogram studies to compare. None reported Hepatic None reported GI Dysphagia Barium Swallow 05/17/22 FL/FL barium swallow modifd [id number] IMPRESSION: The swallowing report is pending from speech therapy. Significant esophageal motility with tertiary contractions inhibiting the passage of liquid barium in the subaortic thoracic esophagus. There is mild irregular narrowing of the distal most esophagus of uncertain etiology. This could right leg to edema and inflammation or be subsequent to distal esophageal dilatation. Correlation with clinical history to be made. ? Metabolic None reported Musc/skel Osteoarthritis/DJD Neuropsych Recent falls. Anesthetic Plan ASA status: 4 (82 year old female with lung malignancy s/p radiation now w/ dysphagia with hx of chronic respiratory failure on home O2, CAD s/p CABG, HTN) Anesthesia: Anesthesia Evaluation and MAC Other: I discussed with the patient risks, goals, and benefits of MAC and general anesthesia. We discussed spectrum of MAC anesthesia including conversion to general as well as possibility of recall of intraoperative stimuli including discomfort/pain. Patient agrees to proceed with MAC. Risk of > 500 ml blood loss (7ml/kg in children): No Medications/Allergies Home Medications Medication Instructions Recorded Confirmed Last Taken Type aspirin 81 mg tablet,delayed 81 mg PO DAILY #90 tab 03/29/20 05/14/22 04/05/22 Rx release fluticasone fur. 100 mcg-umeclid 1 inh INHALATION DAILY 60 Days #60 02/23/22 05/14/22 04/06/22 Rx 62.5 mcg-vilant 25 mcg ea inhalat.powder (Trelegy Ellipta) tiotropium bromide 18 mcg capsule 1 cap INHALATION DAILY 30 Days #60 02/24/22 05/14/22 04/06/22 Rx with inhalation device (Spiriva inh with HandiHaler) lisinopril 10 mg tablet 10 mg PO DAILY 03/03/22 05/14/22 04/05/22 History metoprolol tartrate 25 mg tablet 25 mg PO BID 03/03/22 05/14/22 04/06/22 History amlodipine 10 mg tablet 10 mg PO DAILY 03/24/22 05/14/22 04/06/22 History budesonide-formoterol HFA 160 2 puff INHALATION Q12H 03/24/22 05/14/22 04/06/22 History mcg-4.5 mcg/actuation aerosol inhaler (Symbicort) hydrocodone 5 mg-acetaminophen 325 1 tab PO Q6H PRN #20 tab 03/27/22 05/14/22 Unknown Rx mg tablet prochlorperazine maleate 10 mg 10 mg PO Q4H PRN #30 tab 04/03/22 05/14/22 Unknown Rx tablet (Compazine) furosemide 20 mg tablet (Lasix) 20 mg PO DAILY 30 Days #30 tab 05/09/22 05/14/22 Unknown Rx levofloxacin 500 mg tablet 500 mg PO DAILY 7 Days #7 tab 05/10/22 05/14/22 Unknown Rx lorazepam 1 mg tablet 1 mg PO Q6H PRN #30 tab 05/10/22 05/14/22 Unknown Rx albuterol sulfate 2.5 mg INHALATION Q6H PRN 05/14/22 05/14/22 Unknown History furosemide 40 mg tablet 40 mg PO BID PRN 05/14/22 05/14/22 05/13/22 History rosuvastatin 20 mg tablet 20 mg PO DAILY 05/14/22 05/14/22 Unknown History Allergies Allergy/AdvReac Type Severity Reaction Status Date / Time cortisone Allergy Unknown Verified 05/10/22 13:59 doxycycline Allergy ADR-Itching Verified 05/10/22 13:59 Current Medications Generic Name Dose Route Start Last Admin Trade Name Freq PRN Reason Stop Dose Admin Acetaminophen 650 mg 05/14/22 01:06 05/17/22 08:29 Acetaminophen 325 Mg Tablet PO 650 mg Q6H PRN Administration Mild/Mod Pain Or Temp >/= 101 Hydrocodone Bitart/Acetaminophen 1 tab 05/14/22 01:09 05/18/22 03:12 Hydrocodone-Acetaminophen 5-325 Mg Tablet PO 1 tab Q6H PRN Administration pain Albuterol/Ipratropium 3 ml 05/14/22 04:00 05/18/22 08:13 Ipratropium-Albuterol 3 Ml Neb INHALATION 3 ml Q4H.RESPIRATORY GARRICK Administration Amlodipine Besylate 10 mg 05/14/22 09:00 05/18/22 09:27 Amlodipine 10 Mg Tablet PO 10 mg DAILY GARRICK Administration Aspirin 81 mg 05/14/22 09:00 05/18/22 09:27 Aspirin 81 Mg Ec Tablet PO 81 mg DAILY GARRICK Administration Atorvastatin Calcium 80 mg 05/14/22 21:00 05/17/22 20:08 Atorvastatin 40 Mg Tablet PO 80 mg BEDTIME GARRICK Administration Bisacodyl 10 mg 05/14/22 01:06 05/16/22 08:52 Bisacodyl 5 Mg Tablet PO 10 mg DAILY PRN Administration Constipation (see protocol) Protocol Enoxaparin Sodium 40 mg 05/14/22 01:15 05/17/22 22:49 Enoxaparin 40 Mg/0.4 Ml Syringe SUBCUT 40 mg Q24H GARRICK Administration Furosemide 40 mg 05/18/22 08:00 05/18/22 09:26 Furosemide 40 Mg Tablet PO 40 mg DAILY@0800 GARRICK Administration Guaifenesin 600 mg 05/15/22 12:55 05/18/22 09:26 Guaifenesin 600 Mg Tablet PO 600 mg BID GARRICK Administration Piperacillin Sod/Tazobactam 50 mls @ 12.5 mls/hr 05/14/22 08:00 05/18/22 09:27 Sod 3.375 gm/ Sodium Chloride IV 12.5 mls/hr Q8H GARRICK Administration Protocol Sodium Chloride 1,000 mls @ 30 mls/hr 05/18/22 11:45 05/18/22 11:39 Sodium Chloride 0.9% IV 05/19/22 11:44 30 mls/hr .Q24H GARRICK Administration Lidocaine 1 patch 05/14/22 21:00 05/18/22 09:40 Lidocaine 5% Patch TOPICAL 1 patch [id number] GARRICK Administration Metoprolol Tartrate 25 mg 05/14/22 09:00 05/18/22 09:40 Metoprolol Tartrate 25 Mg Tablet PO 25 mg BID GARRICK Administration Non-Formulary Medication 1 inh 05/14/22 09:00 05/18/22 09:28 [id number] [Trelegy Ellipta] INHALATION Not Given DAILY [facility] Potassium Chloride 40 meq 05/14/22 09:00 05/18/22 09:25 Potassium Chloride Er 20 Meq Tablet PO 40 meq DAILY GARRICK Administration Prednisone 40 mg 05/18/22 09:00 05/18/22 09:26 Prednisone 20 Mg Tablet PO 40 mg DAILY GARRICK Administration [facility] Anesthesia Medical History Atrial flutter Cancer of right lung COPD (chronic obstructive pulmonary disease) Coronary disease Dyslipidemia Essential hypertension Hypertension Surgical History History of colon resection for benign mass History of colonoscopy History of colostomy reversed History of partial hysterectomy Port-A-Cath in place (03/27/22) S/P CABG (coronary artery bypass graft) HERNANDEZ to LAD and saphenous vein graft to posterior descending artery of right coronary Family History Other CAD (coronary artery disease) Hyperlipidemia Hypertension Denies family history of Diabetes Clotting disorder Dementia Psychiatric illness Chronic kidney disease (CKD) Suicide Anesthesia complication Bleeding disorder Lung disease Cancer Stroke Social History Smoking and tobacco status: former smoker Quit status (tobacco): has quit using tobacco Year quit tobacco: 2019 Former quit date comment: 1 ppd X 58 years, started at age 23 Alcohol intake: never Housing: Assisted Living Facility Data Anesthesia : 05/18/22 03:10 05/18/22 03:10 Short CBC 05/17/22 05/18/22 Range/Units 03:39 03:10 WBC 7.1 5.7 (4.0-10.0) 10^3/uL Hgb 8.6 L 8.4 L (11.5-15.3) g/dL Hct 29.0 L 28.2 L (37.0-47.0) % MCV 74.4 L 73.8 L (81-99) fl Plt Count 216 195 (130-400) 10^3/cmm Neut % (Auto) 94.7 89.9 % Neut # (Auto) 6.75 5.12 (1.8-7.7) 10^3/uL BMP 05/17/22 05/18/22 03:39 03:10 Sodium 136 137 Potassium 3.9 3.8 Chloride 90 L 92 L Carbon Dioxide 40 H 39 H BUN 21 19 Creatinine 0.6 0.6 Glucose 172 H 148 H Calcium 8.7 8.5 Cardiac Enzymes 05/17/22 05/18/22 Range/Units 03:39 03:10 NT-Pro-B Natriuret Pep 3036 H 3343 H (0-450) pg/mL Liver Function 05/17/22 05/18/22 Range/Units 03:39 03:10 Total Bilirubin 0.5 0.5 (0.15-1.2) mg/dL AST 17 17 (0-32) U/L ALT 13 14 (0-33) U/L Alkaline Phosphatase 120 H 112 H (35-105) IU/L Albumin 3.0 L 3.0 L (3.5-5.2) g/dL Coags 05/17/22 05/18/22 03:39 03:10 C-Reactive Protein 19.7 H 13.3 H Microbiology 05/15/22 00:10 Gram Stain - Final Sputum - Expectorated Sputum Sputum Culture - Preliminary Yeast species Cardiac Studies: Echocardiogram Ultrasound 01/21/20
[2022-05-18] MEDS: fentaNYL 50 mcg/mL INJ 2mL 25 MCG IVP (13:25)
--- NOTE | 2022-05-18 15:16 | P.PN_ITS ---
Subjective Subjective: Patient was seen this morning, she continues to have productive cough, overall she feels better, continues to have wheezing, ear tightness, she tells me that she is working well with physical therapy Vitals/I&O/Wt Last Vital Signs Temp 97.6 F 05/18/22 15:03 Pulse 93 05/18/22 15:11 Resp 16 05/18/22 15:11 BP 111/68 05/18/22 15:11 Pulse Ox 96 05/18/22 15:11 05/18/22 05/18/22 05/18/22 06:59 14:59 22:59 Intake Total 50 / 150 Output Total 350 / 1930 Balance -300 / -1780 Weight last 48 hrs Weight 41.504 kg Weight 43.091 kg Physical Exam Const: COMMON NORMALS: no acute distress and patient oriented x3 Resp: COMMON NORMALS: normal respiratory effort, No retractions and No use of accessory muscles AUSCULTATION: wheezes Cardio: COMMON NORMALS: regular rate, regular rhythm, S1 normal heart sound present and S2 normal heart sound present RATE: regular rate RHYTHM: regular rhythm HEART SOUNDS: S1 normal heart sound present and S2 normal heart sound present GI: COMMON NORMALS: Normal to inspection, nondistended, normoactive bowel sounds present, Soft to palpation and non-tender PALPATION: Yes Soft to palpation Extremity: COMMON NORMALS: no pedal edema Neuro: COMMON NORMALS: patient oriented x3 Psych: COMMON NORMALS: mental status grossly normal Data : 05/18/22 03:10 05/18/22 03:10 Micro: Microbiology 05/15/22 00:10 Gram Stain - Final Sputum - Expectorated Sputum Sputum Culture - Preliminary Yeast species A&P Assessment and plan (1) Chronic respiratory failure with hypoxia: Continue assessment and management of pneumonia, continue antibiotics, was also started on steroids for radiation Continues to have wheezing, chest tightness, but overall improved Continue neb treatments. Continue nasal cannula oxygen support. Wean down as tolerating. And I-S. Continue supportive measures. Blood cultures so yet far negative Mucinex for cough De-escalate therapy to Zosyn De-escalate steroid therapy Undergoing EGD today Follow-up test results potential discharge in next 24 to 48 hours Status: Acute (2) Lung mass: Status: Acute (3) Atrial flutter: Status: Acute Qualifiers: Atrial flutter type: typical Qualified Code(s): I48.3 - Typical atrial flutter (4) COPD (chronic obstructive pulmonary disease): Status: Acute Qualifiers: COPD type: chronic bronchitis Chronic bronchitis type: simple Qualified Code(s): J41.0 - Simple chronic bronchitis (5) S/P CABG (coronary artery bypass graft): Status: Acute (6) CAD (coronary artery disease): Status: Acute (7) Pneumonia: Status: Acute (8) Essential hypertension: Status: Acute Plan 82 year old female with PMH of coronary artery disease status post CABG HERNANDEZ to LAD and SVG to PDA?, Hypertension Atrial fibrillation not on anticoagulation COPD on 3 L home oxygen, Ca lung currently on radiation therapy (completed the last 10th session of radiation therapy recently) came in with chief complaint of after experiencing a fall at home while she was walking in the from what she states me regarding the fall looks like it is a mechanical fall , she is also complaining of shortness of breath particularly with exertion, cough with greenish sputum production as well as subjective fever at home. Rib fracture, ninth rib fracture Does have complaints of intermittent dysphagia, -Undergoing EGD today -He is receiving steroids Deconditioning, protein calorie malnutrition -Consult for PT OT -Home health care -Patient and family arranging safe discharge Attestations Medical Necessity Statement*: Patient requires hospitalization for this morning, respiratory failure Coding Level of Care Code Acute Flux Mixer for [facility] Fwd Diagnoses Chronic respiratory failure with hypoxia J96.11 Lung mass R91.8 Atrial flutter I48.3 Atrial flutter type: typical COPD (chronic obstructive pulmonary disease) J41.0 COPD type: chronic bronchitis Chronic bronchitis type: simple S/P CABG (coronary artery bypass graft) Z95.1 CAD (coronary artery disease) I25.10 Pneumonia J18.9 Essential hypertension I10
--- NOTE | 2022-05-18 16:17 | ANE.PACU2 ---
Inpatient post-anesthesia follow up: Airway intact: Yes Vital signs: Temperature 98.0 F Pulse Rate 89 Respiratory Rate 15 Blood Pressure 108/66 Pulse Oximetry 92 Oxygen Delivery Me thod Nasal Cannula Oxygen Flow Rate 4 Fraction of Inspir ed Oxygen Hydration adequate: Yes Nausea and vomiting: No Pain level: 1 Mental status: Baseline
[2022-05-18] MEDS: fluconazole premix 400 MG/200 ML PIGGYBACK 200 MG IV (17:43)
[2022-05-18] MEDS: atorvastatin 40 mg Tablet 80 MG PO (20:45)
[2022-05-19] VITALS (13 sets, daily range): BP systolic 102–115; BP diastolic 62–68; PULSE 81–111; RESP 14–20; TEMP 36.4–36.7; O2SAT 92–98
[2022-05-19] MEDS: ipratropium-albuterol 3 mL Neb INHALATION ×6 (00:18→20:12)
[2022-05-19] MEDS: piperacillin-tazobactam 3.375 GM in sodium chloride 0.9% (plus) 50 ML IV ×3 (00:24→17:31)
[2022-05-19] MEDS: enoxaparin 40 mg/0.4 mL Syringe SUBCUT (00:25)
[2022-05-19 03:00] LABS: Hematocrit 28.5 % (37.0-47.0); Hemoglobin 8.4 g/dL (11.5-15.3); Lymphocytes # 0.2 10^3/uL (0.8-4.8); Lymphocytes % 2.9 %; Mean Corpuscular HGB Conc 29.5 g/dL (30.0-36.0); Mean Corpuscular Volume 74.8 fl (81-99); Mean Platelet Volume 8.5 fL (7.4-10.4); Monocytes # 0.3 10^3/uL (0.2-0.9); Monocytes % 5.5 %; Neutrophils % 90.2 %; Nucleated Red Blood Cells % 0 %; Platelet Count 191 10^3/cmm (130-400); Red Blood Count 3.81 10^6/uL (4.1-5.3); Red Cell Distribution Width 17.6 % (12.1-15.1); White Blood Count 5.8 10^3/uL (4.0-10.0)
[2022-05-19 03:22] LABS: Alanine Aminotransferase 15 U/L (0-33); Albumin Level 2.9 g/dL (3.5-5.2); Alkaline Phosphatase 100 IU/L (35-105); Anion Gap 8.6 (5-19); Aspartate Amino Transferase 19 U/L (0-32); Blood Urea Nitrogen 18 mg/dL (8-23); Calcium 8.6 mg/dL (8.5-10.5); Carbon Dioxide 36 mmol/L (22-29); Chloride 97 mmol/L (98-107); Globulin 2.3 g/dL (1.3-4.6); Glucose 150 mg/dL (65-115); Osmolality Calculated 291 mOsm/kg (285-295); Potassium 3.6 mmol/L (3.5-5.1); Sodium 138 mmol/L (136-145); Total Bilirubin 0.4 mg/dL (0.15-1.2); Total Protein 5.2 g/dL (6.6-8.7)
[2022-05-19] MEDS: lidocaine 5% Patch 1 PATCH TOPICAL (07:57)
[2022-05-19] MEDS: predniSONE 20 mg Tablet 40 MG PO (07:58)
[2022-05-19] MEDS: amlodipine 10 mg Tablet PO (07:58)
[2022-05-19] MEDS: FUROsemide 40 mg Tablet PO (07:58)
[2022-05-19] MEDS: metoprolol tartrate 25 mg Tablet PO ×2 (07:58→17:32)
[2022-05-19] MEDS: aspirin 81 mg EC Tablet PO (07:58)
[2022-05-19] MEDS: guaiFENesin 600 mg Tablet PO ×2 (07:58→17:31)
[2022-05-19] MEDS: potassium chloride ER 20 mEq Tablet 40 MEQ PO (07:58)
[2022-05-19] MEDS: fluconazole premix 200 MG/100 ML PREMIX 100 MG IV (07:59)
--- NOTE | 2022-05-19 09:28 | PC.NURSE ---
Bedside report received from JULI Campos, this morning.
--- NOTE | 2022-05-19 10:54 | PC.SOCIAL ---
IMM update IMM updated with patient. Verbalized an understanding. Copy Pg 2 provided. Initialled, dated, timed, and placed in chart.
--- NOTE | 2022-05-19 12:12 | PM.PN ---
Subjective Subjective: Patient has no pain or new complaints. She is tolerating a dysphagia diet Vitals/I&O/Wt Last Vital Signs Temp 97.8 F 05/19/22 11:37 Pulse 89 05/19/22 11:37 Resp 17 05/19/22 11:37 BP 115/68 05/19/22 11:37 Pulse Ox 95 05/19/22 11:37 05/18/22 05/19/22 05/19/22 22:59 06:59 14:59 Intake Total 1040 / 1090 50 / 1140 340 / 340 Output Total 900 / 900 450 / 1350 Balance 140 / 190 -400 / -210 340 / 340 Weight last 48 hrs Weight 91 lb 8 oz Physical Exam Narrative: General: No acute distress, awake alert and oriented x3 Abdomen: Soft, nondistended, nontender, no guarding rebound or masses Data : 05/19/22 02:31 05/19/22 02:31 Micro: Microbiology 05/14/22 05:54 Blood Culture - Final Blood NO GROWTH AFTER 5 DAYS 05/14/22 05:50 Blood Culture - Final Blood NO GROWTH AFTER 5 DAYS A&P Assessment and plan (1) Esophageal candidiasis: Status: Acute Plan Medical management per primary No acute surgical intervention Attestations Medical Necessity Statement*: Further hospitalization per hospitalist Coding Level of Care Code Acute Transfer 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
--- NOTE | 2022-05-19 16:12 | PM.PN ---
Subjective Subjective: Patient was seen this morning, she tells me that she is feeling better, her dysphagia is getting better, no fevers overnight Vitals/I&O/Wt Last Vital Signs Temp 97.8 F 05/19/22 11:37 Pulse 100 05/19/22 15:09 Resp 14 05/19/22 15:09 BP 115/68 05/19/22 11:37 Pulse Ox 93 05/19/22 15:09 05/19/22 05/19/22 05/19/22 06:59 14:59 22:59 Intake Total 50 / 1140 460 / 460 50 / 510 Output Total 450 / 1350 700 / 700 Balance -400 / -210 460 / 460 -650 / -190 Weight last 48 hrs Weight 41.504 kg Physical Exam Const: COMMON NORMALS: no acute distress and patient oriented x3 Resp: COMMON NORMALS: normal respiratory effort, No retractions, No use of accessory muscles and clear to auscultation bilaterally AUSCULTATION: clear to auscultation bilaterally Cardio: COMMON NORMALS: regular rate, regular rhythm, S1 normal heart sound present and S2 normal heart sound present RATE: regular rate RHYTHM: regular rhythm HEART SOUNDS: S1 normal heart sound present and S2 normal heart sound present GI: COMMON NORMALS: Normal to inspection, nondistended, normoactive bowel sounds present, Soft to palpation, non-tender and No hepatosplenomegaly present PALPATION: Yes Soft to palpation and Yes No hepatosplenomegaly present Extremity: COMMON NORMALS: no pedal edema Neuro: COMMON NORMALS: patient oriented x3 Psych: COMMON NORMALS: mental status grossly normal Data : 05/19/22 02:31 05/19/22 02:31 Micro: Microbiology 05/15/22 00:10 Gram Stain - Final Sputum - Expectorated Sputum Sputum Culture - Final Page tropicalis 05/14/22 05:54 Blood Culture - Final Blood NO GROWTH AFTER 5 DAYS 05/14/22 05:50 Blood Culture - Final Blood NO GROWTH AFTER 5 DAYS A&P Assessment and plan (1) Esophageal candidiasis: Status: Acute (2) Chronic respiratory failure with hypoxia: Continue assessment and management of pneumonia, continue antibiotics, was also started on steroids for radiation Continues to have wheezing, chest tightness, but overall improved Continue neb treatments. Continue nasal cannula oxygen support. Wean down as tolerating. And I-S. Continue supportive measures. Blood cultures so yet far negative Mucinex for cough De-escalate therapy to Zosyn De-escalate steroid therapy Undergoing EGD today Follow-up test results potential discharge in next 24 to 48 hours Status: Acute (3) Lung mass: Status: Acute (4) Atrial flutter: Status: Acute Qualifiers: Atrial flutter type: typical Qualified Code(s): I48.3 - Typical atrial flutter (5) COPD (chronic obstructive pulmonary disease): Status: Acute Qualifiers: COPD type: chronic bronchitis Chronic bronchitis type: simple Qualified Code(s): J41.0 - Simple chronic bronchitis (6) S/P CABG (coronary artery bypass graft): Status: Acute (7) CAD (coronary artery disease): Status: Acute (8) Pneumonia: Status: Acute (9) Essential hypertension: Status: Acute Plan 82 year old female with PMH of coronary artery disease status post CABG HERNANDEZ to LAD and SVG to PDA?, Hypertension Atrial fibrillation not on anticoagulation COPD on 3 L home oxygen, Ca lung currently on radiation therapy (completed the last 10th session of radiation therapy recently) came in with chief complaint of after experiencing a fall at home while she was walking in the from what she states me regarding the fall looks like it is a mechanical fall , she is also complaining of shortness of breath particularly with exertion, cough with greenish sputum production as well as subjective fever at home. Rib fracture, ninth rib fracture Does have complaints of intermittent dysphagia, -Undergoing EGD shows esophageal candidiasis -He is receiving steroids Deconditioning, protein calorie malnutrition -Consult for PT OT -Home health care -Patient and family arranging safe discharge Esophageal candidiasis, has received loading dose of fluconazole yesterday, continue 200 mg IV once daily Attestations Medical Necessity Statement*: Patient requires hospitalization for rib fracture, deconditioning, esophageal candidiasis, dysphagia Coding Level of Care Code Acute Child Neurologist for Chg Fwd Diagnoses Esophageal candidiasis B37.81 Chronic respiratory failure with hypoxia J96.11 Lung mass R91.8 Atrial flutter I48.3 Atrial flutter type: typical COPD (chronic obstructive pulmonary disease) J41.0 COPD type: chronic bronchitis Chronic bronchitis type: simple S/P CABG (coronary artery bypass graft) Z95.1 CAD (coronary artery disease) I25.10 Pneumonia J18.9 Essential hypertension I10
[2022-05-19] MEDS: atorvastatin 40 mg Tablet 80 MG PO (20:25)
[2022-05-20] VITALS (13 sets, daily range): BP systolic 94–121; BP diastolic 50–64; PULSE 81–104; RESP 16–19; TEMP 36.4–36.9; O2SAT 94–98
[2022-05-20] MEDS: ipratropium-albuterol 3 mL Neb INHALATION ×4 (00:09→11:28)
[2022-05-20] MEDS: piperacillin-tazobactam 3.375 GM in sodium chloride 0.9% (plus) 50 ML IV (00:19)
[2022-05-20] MEDS: enoxaparin 40 mg/0.4 mL Syringe SUBCUT (00:19)
[2022-05-20 04:27] LABS: Hematocrit 27.8 % (37.0-47.0); Hemoglobin 8.3 g/dL (11.5-15.3); Lymphocytes # 0.3 10^3/uL (0.8-4.8); Lymphocytes % 4.6 %; Mean Corpuscular HGB Conc 29.9 g/dL (30.0-36.0); Mean Corpuscular Volume 73.7 fl (81-99); Mean Platelet Volume 8.1 fL (7.4-10.4); Monocytes # 0.4 10^3/uL (0.2-0.9); Monocytes % 6.4 %; Neutrophils # 4.93 10^3/uL (1.8-7.7); Neutrophils % 88.1 %; Nucleated Red Blood Cells % 0 %; Platelet Count 165 10^3/cmm (130-400); Red Blood Count 3.77 10^6/uL (4.1-5.3); Red Cell Distribution Width 17.6 % (12.1-15.1); White Blood Count 5.6 10^3/uL (4.0-10.0)
[2022-05-20 04:49] LABS: Alanine Aminotransferase 17 U/L (0-33); Albumin Level 2.9 g/dL (3.5-5.2); Alkaline Phosphatase 103 IU/L (35-105); Anion Gap 9.7 (5-19); Aspartate Amino Transferase 19 U/L (0-32); Blood Urea Nitrogen 20 mg/dL (8-23); Calcium 8.5 mg/dL (8.5-10.5); Carbon Dioxide 35 mmol/L (22-29); Chloride 99 mmol/L (98-107); Globulin 2.3 g/dL (1.3-4.6); Glucose 147 mg/dL (65-115); Osmolality Calculated 295 mOsm/kg (285-295); Potassium 3.7 mmol/L (3.5-5.1); Sodium 140 mmol/L (136-145); Total Bilirubin 0.5 mg/dL (0.15-1.2); Total Protein 5.2 g/dL (6.6-8.7)
[2022-05-20] MEDS: FUROsemide 40 mg Tablet PO (08:35)
[2022-05-20] MEDS: potassium chloride ER 20 mEq Tablet 40 MEQ PO (08:36)
[2022-05-20] MEDS: aspirin 81 mg EC Tablet PO (08:36)
[2022-05-20] MEDS: guaiFENesin 600 mg Tablet PO (08:36)
[2022-05-20] MEDS: amlodipine 10 mg Tablet PO (08:36)
[2022-05-20] MEDS: metoprolol tartrate 25 mg Tablet PO (08:36)
[2022-05-20] MEDS: lidocaine 5% Patch 1 PATCH TOPICAL (08:37)
[2022-05-20] MEDS: predniSONE 20 mg Tablet 40 MG PO (08:37)
[2022-05-20] MEDS: fluconazole premix 200 MG/100 ML PREMIX 100 MG IV (08:38)
--- NOTE | 2022-05-20 10:51 | PM.DCS ---
Discharge Providers Date of Admission: 05/14/22 00:12 Date of Discharge: May 20, 2022 Attending Provider at Admission: Harish Lopez MD Attending Provider at Discharge: Carlo Stinson MD Primary Care Provider: Manju Hebert Diagnoses at Discharge Discharge Diagnosis (1) Esophageal candidiasis: Status: Acute (2) Chronic respiratory failure with hypoxia: Status: Acute (3) Lung mass: Status: Acute (4) Atrial flutter: Status: Acute Qualifiers: Atrial flutter type: typical Qualified Code(s): I48.3 - Typical atrial flutter (5) COPD (chronic obstructive pulmonary disease): Status: Acute Qualifiers: COPD type: chronic bronchitis Chronic bronchitis type: simple Qualified Code(s): J41.0 - Simple chronic bronchitis (6) S/P CABG (coronary artery bypass graft): Status: Acute Permanent problem details: HERNANDEZ to LAD and saphenous vein graft to posterior descending artery of right coronary (7) CAD (coronary artery disease): Status: Acute (8) Pneumonia: Status: Acute (9) Essential hypertension: Status: Acute Reason for Visit Reason for Visit: Fall with Rib pain at [id number] Hospital Course Hospital Course 82 year old female with PMH of coronary artery disease status post CABG HERNANDEZ to LAD and SVG to PDA?, Hypertension, atrial fibrillation not on anticoagulation COPD on 3 L home oxygen, lung cancer currently on radiation therapy (completed the last 10th session of radiation therapy recently) came in with chief complaint of after experiencing a fall at home while she was walking in the from what she states me regarding the fall looks like it is a mechanical fall , she is also complaining of shortness of breath particularly with exertion, cough with greenish sputum production as well as subjective fever at home. Patient was admitted to [facility] for acute hypoxic respiratory failure for pneumonia, received steroids, antibiotic therapy oxygen therapy, clinically monitored, clinically improved. Discharged on steroid and antibiotics Patient was also found to have intermittent dysphagia, with findings of esophageal candidiasis, on EGD, treated with fluconazole inpatient, clinically improved, discharged on 2 weeks of fluconazole. Patient was advised if she were to have any recurrent dysphagia she might require repeat EGD and or treatment with amphotericin B. She was also found to have a rib fracture ninth rib, pain control, PT OT, discharged with lidocaine patches Deconditioning, protein calorie malnutrition, home health care was arranged, patient has multiple family numbers that will help take care of her at home Physical Exam Const: COMMON NORMALS: no acute distress and patient oriented x3 Resp: COMMON NORMALS: normal respiratory effort, No retractions, No use of accessory muscles and clear to auscultation bilaterally AUSCULTATION: clear to auscultation bilaterally Cardio: COMMON NORMALS: regular rate, regular rhythm, S1 normal heart sound present and S2 normal heart sound present RATE: regular rate RHYTHM: regular rhythm HEART SOUNDS: S1 normal heart sound present and S2 normal heart sound present GI: COMMON NORMALS: Normal to inspection, nondistended, normoactive bowel sounds present, Soft to palpation and non-tender PALPATION: Yes Soft to palpation Extremity: COMMON NORMALS: no pedal edema Neuro: COMMON NORMALS: patient oriented x3 Psych: COMMON NORMALS: mental status grossly normal Discharge Data Studies Completed and Pending Completed Studies During Hospitalization Category Date Time Status CT head wo con* [id number] Urgent Cat Scan 05/13/22 21:44 Completed FL barium swallow modifd [id number] Routine Exams 05/17/22 09:30 Completed XR chest 1V portable [id number] Urgent Exams 05/13/22 21:15 Completed XR ribs RT 2V* [id number] Urgent Exams 05/13/22 21:15 Completed Radiology Impressions Chest X-Ray 05/13/22 21:15 IMPRESSION: No change in bilateral pneumonia. Ribs X-Ray 05/13/22 21:15 IMPRESSION: Right 9th rib fracture. Head CT 05/13/22 21:44 IMPRESSION: 1. Atrophy and chronic ischemic changes. 2. 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 3. No acute abnormality Modified Barium Swallow 05/17/22 09:30 IMPRESSION: The swallowing report is pending from speech therapy. Significant esophageal motility with tertiary contractions inhibiting the passage of liquid barium in the subaortic thoracic esophagus. There is mild irregular narrowing of the distal most esophagus of uncertain etiology. This could right leg to edema and inflammation or be subsequent to distal esophageal dilatation. Correlation with clinical history to be made. Laboratory Results WBC 5.6 10^3/uL (4.0-10.0) 05/20/22 04:20 RBC 3.77 10^6/uL (4.1-5.3) L 05/20/22 04:20 Hgb 8.3 g/dL (11.5-15.3) L 05/20/22 04:20 Hct 27.8 % (37.0-47.0) L 05/20/22 04:20 MCV 73.7 fl (81-99) L 05/20/22 04:20 MCH 22.0 pg (28.0-34.0) L 05/20/22 04:20 MCHC 29.9 g/dL (30.0-36.0) L 05/20/22 04:20 RDW 17.6 % (12.1-15.1) H 05/20/22 04:20 Plt Count 165 10^3/cmm (130-400) 05/20/22 04:20 MPV 8.1 fL (7.4-10.4) 05/20/22 04:20 Neut % (Auto) 88.1 % 05/20/22 04:20 Lymph % (Auto) 4.6 % 05/20/22 04:20 [place] % (Auto) 6.4 % 05/20/22 04:20 Eos % (Auto) 0.0 % 05/20/22 04:20 Baso % (Auto) 0.0 % 05/20/22 04:20 Neut # (Auto) 4.93 10^3/uL (1.8-7.7) 05/20/22 04:20 Lymph # (Auto) 0.3 10^3/uL (0.8-4.8) L 05/20/22 04:20 [place] # (Auto) 0.4 10^3/uL (0.2-0.9) 05/20/22 04:20 Eos # (Auto) 0.0 10^3/uL (0.0-0.8) 05/20/22 04:20 Baso # (Auto) 0.0 10^3/uL (0.0-0.1) 05/20/22 04:20 Nucleated RBC % (auto) 0 % 05/20/22 04:20 Nucleated RBCs # 0.0 /100WBC 05/20/22 04:20 Sodium 140 mmol/L (136-145) 05/20/22 04:20 Potassium 3.7 mmol/L (3.5-5.1) 05/20/22 04:20 Chloride 99 mmol/L (98-107) 05/20/22 04:20 Carbon Dioxide 35 mmol/L (22-29) H 05/20/22 04:20 Anion Gap 9.7 (5-19) 05/20/22 04:20 BUN 20 mg/dL (8-23) 05/20/22 04:20 Creatinine 0.6 mg/dL (0.5-0.9) 05/20/22 04:20 GFR Calculation Not Reportable 05/20/22 04:20 Glucose 147 mg/dL (65-115) H 05/20/22 04:20 POC Glucose 209 mg/dL (70-110) H 05/16/22 06:30 Calculated Osmolality 295 mOsm/kg (285-295) 05/20/22 04:20 Calcium 8.5 mg/dL (8.5-10.5) 05/20/22 04:20 Phosphorus 2.7 mg/dL (2.5-4.5) 05/18/22 03:10 Magnesium 2.2 mg/dL (1.7-2.3) 05/18/22 03:10 Total Bilirubin 0.5 mg/dL (0.15-1.2) 05/20/22 04:20 AST 19 U/L (0-32) 05/20/22 04:20 ALT 17 U/L (0-33) 05/20/22 04:20 Alkaline Phosphatase 103 IU/L (35-105) 05/20/22 04:20 Troponin T Baseline 24 ng/L (0-10) H 05/13/22 22:17 Troponin T 120 Minute 24.52 ng/L (0-10) H 05/14/22 00:35 Delta Troponin T 0.52 ABS# (0-10) 05/14/22 00:35 Troponin T Hi Sens 6Hr 26.72 ng/L (0-10) H 05/14/22 05:50 Troponin T Hi Sens 6Hr Delta 2.72 ng/L (0-12) 05/14/22 05:50 C-Reactive Protein 13.3 mg/L (0.0-4.9) H 05/18/22 03:10 NT-Pro-B Natriuret Pep 3343 pg/mL (0-450) H 05/18/22 03:10 Total Protein 5.2 g/dL (6.6-8.7) L 05/20/22 04:20 Albumin 2.9 g/dL (3.5-5.2) L 05/20/22 04:20 Globulin 2.3 g/dL (1.3-4.6) 05/20/22 04:20 Lipase 11 U/L (13-60) L 05/13/22 22:17 Procalcitonin 0.08 ng/mL (0-0.5) 05/18/22 03:10 Vancomycin Trough 11.8 ug/mL (10-15) 05/16/22 21:04 Coronavirus 229E (PCR) Not detected (NOT DETECT) 05/14/22 00:35 SARS-CoV-2 (PCR) Not detected (NOT DETECT) 05/14/22 00:35 Vitals Last Vital Signs Temp 97.6 F 05/20/22 07:33 Pulse 101 H 05/20/22 07:54 Resp 16 05/20/22 07:48 BP 121/63 05/20/22 07:33 Pulse Ox 98 05/20/22 07:48 Discharge Plan Discharge Patient Disposition: Home Condition: Stable Prescriptions: New potassium chloride [Klor-Con M20] 20 mEq Tablet,Er Particles/Crystals 20 meq PO DAILY 30 Days Qty: 30 0RF lidocaine 5 % Adhesive Patch,Medicated 1 patch topical [id number] 5 Days Qty: 5 0RF prednisone 20 mg Tablet 40 mg PO DAILY 2 Days Qty: 4 0RF amoxicillin-pot clavulanate 875-125 mg tablet 1 tab PO BID 2 Days Qty: 4 0RF fluconazole 200 mg tablet 200 mg PO DAILY 14 Days Qty: 14 0RF Continued aspirin 81 mg tablet,delayed release (DR/EC) 81 mg PO DAILY Qty: 90 1RF Trelegy Ellipta 100-62.5-25 mcg blister with device 1 inh inhalation DAILY 60 Days Qty: 60 3RF lorazepam 1 mg tablet 1 mg PO Q6H PRN (Reason: severe nausea and vomiting) Qty: 30 3RF Rx Instructions: take 1/2 to 1 tab every 6 hours as needed for severe nausea and vomiting Spiriva with HandiHaler 18 mcg capsule, w/inhalation device 1 cap inhalation DAILY 30 Days Qty: 60 3RF Rx Instructions: puncture 1 cap using device; one dose = 2 inhalations prochlorperazine maleate [Compazine] 10 mg tablet 10 mg PO Q4H PRN (Reason: nausea and vomiting) Qty: 30 3RF lisinopril 10 mg tablet 10 mg PO DAILY 0RF Rx Instructions: TAKE 1 TABLET EVERY DAY metoprolol tartrate 25 mg tablet 25 mg PO BID 0RF amlodipine 10 mg tablet 10 mg PO DAILY 0RF budesonide-formoterol [Symbicort] 160-4.5 mcg/actuation HFA aerosol inhaler 2 puff inhalation Q12H 0RF hydrocodone-acetaminophen 5-325 mg tablet 1 tab PO Q6H PRN (Reason: pain) Qty: 20 0RF albuterol sulfate 2.5 mg /3 mL (0.083 %) solution for nebulization 2.5 mg inhalation Q6H PRN (Reason: Shortness Of Breath) 0RF rosuvastatin 20 mg tablet 20 mg PO DAILY 0RF Changed furosemide [Lasix] 20 mg tablet 40 mg PO DAILY 30 Days Qty: 30 1RF furosemide 40 mg tablet 20 mg PO DAILY PRN (Reason: edema) Qty: 0 0RF Discontinued levofloxacin 500 mg tablet 500 mg PO DAILY 7 Days Qty: 7 0RF Discharge Orders: Discharge Order (Routine); Ordered 05/20/22 Ordered By: Carlo Stinson Other Ambulatory Orders: DME: [employer] (Order) Location: None Selected Ordered By: Carlo Stinson DME: Walker (Order) Location: None Selected Ordered By: Carlo Stinson Referrals: [facility] [place] Home Care ([facility]) [Outside] Manju Hebert [Primary Care Provider] - Wiley Gant MD [Hospitalist] - 2 weeks Melody Ricks MD [Physician] - 1 month Patient Instructions: GI Discharge Instructions, Opioid Safety Activity Restrictions/Additional Instructions: - Please take fluconazole 200 mg once a day for the next 2 weeks -Hydrate well -Follow-up with Dr. Gant -Follow-up with Dr. Ricks -If you continue to have dysphagia, difficulty swallowing, you might require a repeat EGD Discharge Attestations Time Spent in Discharge Care*: less than 30 min Status at Discharge: Cognitive status at discharge: cognitively intact, Behavioral status at discharge: cooperative, Quality Metrics Clinical Quality Measures [ No reported AMI, CVA or VTE this stay] Coding Level of Care Code Acute Chg FW DC note Diagnoses Esophageal candidiasis B37.81 Chronic respiratory failure with hypoxia J96.11 Lung mass R91.8 Atrial flutter I48.3 Atrial flutter type: typical COPD (chronic obstructive pulmonary disease) J41.0 COPD type: chronic bronchitis Chronic bronchitis type: simple S/P CABG (coronary artery bypass graft) Z95.1 CAD (coronary artery disease) I25.10 Pneumonia J18.9 Essential hypertension I10
== END 2022-05-20 13:45 | disposition home health service (06) | DRG 205 ==
LOC: ER 22:55 → ICU 05-14 00:12 → MEDSURG 05-14 16:47
PROVIDERS: Emergency Medicine; Surgery; Admitting Provider Internal Medicine; Emergency Provider Emergency Medicine; PCP Registered Nurse; Visit Provider Family Medicine
PROC: 0DJ08ZZ Inspection of Upper Intestinal Tract, Via Natural or Artificial Opening Endoscopic (ICD-10-PCS; CPT 43235; principal; 2022-05-18 12:00)
DX: J70.0 Acute pulmonary manifestations due to radiation (principal); I50.31 Acute diastolic (congestive) heart failure; J96.21 Acute and chronic respiratory failure with hypoxia; S22.31XA Fracture of one rib, right side, initial encounter for closed fracture; C34.91 Malignant neoplasm of unspecified part of right bronchus or lung; I48.4 Atypical atrial flutter; J44.0 Chronic obstructive pulmonary disease with (acute) lower respiratory infection; E46 Unspecified protein-calorie malnutrition; Z68.1 Body mass index [BMI] 19.9 or less, adult; B37.81 Candidal esophagitis; E44.1 Mild protein-calorie malnutrition; W88.1XXA Exposure to radioactive isotopes, initial encounter; W18.09XA Striking against other object with subsequent fall, initial encounter; Z79.899 Other long term (current) drug therapy; Z99.81 Dependence on supplemental oxygen; I25.10 Atherosclerotic heart disease of native coronary artery without angina pectoris; Z95.1 Presence of aortocoronary bypass graft; E78.5 Hyperlipidemia, unspecified; Z90.49 Acquired absence of other specified parts of digestive tract; Z87.891 Personal history of nicotine dependence; I11.0 Hypertensive heart disease with heart failure; I48.91 Unspecified atrial fibrillation; R13.10 Dysphagia, unspecified; Z79.51 Long term (current) use of inhaled steroids; Z79.891 Long term (current) use of opiate analgesic; Z79.82 Long term (current) use of aspirin
CPT/HCPCS: 36415; 36416; 36591; 43235; 70450; 71045; 71100; 74230; 80053; 80202; 82962; 83690; 83735; 83880; 84100; 84145; 84484; 85025; 86140; 86403; 87040; 87070; 87106; 87205; 87449; 87635; 87641; 92526; 92610; 92611; 93005; 94640; 96365; 96372; 96375; 97116; 97162; 99285; J1450; J1650; J1940; J2270; J2543; J2704; J2930; J3010; J3370; J3475; J7030; J7040; J7050; J7512

== ENCOUNTER → 2022-05-24 10:43 | Outpatient (BNVA) | payer MEDICARE, BC, SELFPAY | PROVIDERS: PCP Registered Nurse; Visit Provider Internal Medicine Critical Care Medicine | DX: J41.0 Simple chronic bronchitis (principal); J96.11 Chronic respiratory failure with hypoxia; C34.90 Malignant neoplasm of unspecified part of unspecified bronchus or lung; Z87.891 Personal history of nicotine dependence; E78.5 Hyperlipidemia, unspecified; I10 Essential (primary) hypertension; Z99.81 Dependence on supplemental oxygen | CPT/HCPCS: 99214 ==

== ENCOUNTER 2022-05-31 14:11 | Oncology outpatient (recurring) (ONCR) | payer MEDICARE, BC, SELFPAY ==
[2022-05-31 14:58] LABS: Eosinophils % 0.6 %; Hematocrit 27.8 % (37.0-47.0); Hemoglobin 8.3 g/dL (11.5-15.3); Lymphocytes # 0.3 10^3/uL (0.8-4.8); Lymphocytes % 6.3 %; Mean Corpuscular HGB Conc 29.9 g/dL (30.0-36.0); Mean Platelet Volume 8.1 fL (7.4-10.4); Monocytes # 0.4 10^3/uL (0.2-0.9); Monocytes % 7.4 %; Neutrophils # 4.49 10^3/uL (1.8-7.7); Neutrophils % 85.3 %; Nucleated Red Blood Cells % 0 %; Platelet Count 138 10^3/cmm (130-400); Red Blood Count 3.61 10^6/uL (4.1-5.3); Red Cell Distribution Width 20.7 % (12.1-15.1); White Blood Count 5.3 10^3/uL (4.0-10.0)
[2022-05-31 15:30] LABS: Alanine Aminotransferase 30 U/L (0-33); Albumin Level 2.6 g/dL (3.5-5.2); Alkaline Phosphatase 188 IU/L (35-105); Anion Gap 12.1 (5-19); Aspartate Amino Transferase 27 U/L (0-32); Blood Urea Nitrogen 12 mg/dL (8-23); Calcium 8.1 mg/dL (8.5-10.5); Carbon Dioxide 31 mmol/L (22-29); Chloride 97 mmol/L (98-107); Globulin 2.6 g/dL (1.3-4.6); Glucose 191 mg/dL (65-115); Osmolality Calculated 287 mOsm/kg (285-295); Potassium 4.1 mmol/L (3.5-5.1); Sodium 136 mmol/L (136-145); Total Bilirubin 0.4 mg/dL (0.15-1.2); Total Protein 5.2 g/dL (6.6-8.7)
== END 2022-05-31 23:59 | disposition home or self-care (01) ==
PROVIDERS: PCP Registered Nurse; Visit Provider Nurse Practitioner Family
DX: C34.31 Malignant neoplasm of lower lobe, right bronchus or lung (principal); J44.9 Chronic obstructive pulmonary disease, unspecified; Z87.891 Personal history of nicotine dependence; Z79.899 Other long term (current) drug therapy; Z92.3 Personal history of irradiation
CPT/HCPCS: 36591; 80053; 85025; 99214; 99215

== ENCOUNTER 2022-07-10 08:00 | Oncology outpatient (recurring) (ONCR) | payer MEDICARE, BC, SELFPAY ==
[2022-06-21 14:02] LABS: Basophils % 0.4 %; Eosinophils % 0.1 %; Hemoglobin 9.3 g/dL (11.5-15.3); Lymphocytes # 1.1 10^3/uL (0.8-4.8); Lymphocytes % 13.7 %; Mean Corpuscular Hemoglobin 24.7 pg (28.0-34.0); Mean Corpuscular Volume 82.4 fl (81-99); Mean Platelet Volume 8.2 fL (7.4-10.4); Monocytes # 0.7 10^3/uL (0.2-0.9); Monocytes % 8.3 %; Neutrophils # 6.01 10^3/uL (1.8-7.7); Nucleated Red Blood Cells % 0 %; Platelet Count 248 10^3/cmm (130-400); Red Blood Count 3.76 10^6/uL (4.1-5.3); Red Cell Distribution Width 26.1 % (12.1-15.1); White Blood Count 7.8 10^3/uL (4.0-10.0)
[2022-06-21 14:26] LABS: Alanine Aminotransferase 20 U/L (0-33); Alkaline Phosphatase 296 IU/L (35-105); Anion Gap 14.2 (5-19); Aspartate Amino Transferase 22 U/L (0-32); Blood Urea Nitrogen 14 mg/dL (8-23); Calcium 7.4 mg/dL (8.5-10.5); Carbon Dioxide 33 mmol/L (22-29); Chloride 99 mmol/L (98-107); Globulin 2.3 g/dL (1.3-4.6); Glucose 111 mg/dL (65-115); Osmolality Calculated 297 mOsm/kg (285-295); Potassium 3.2 mmol/L (3.5-5.1); Sodium 143 mmol/L (136-145); Total Bilirubin 0.2 mg/dL (0.15-1.2); Total Protein 5.3 g/dL (6.6-8.7)
[2022-06-21 14:45] LABS: Ferritin 142 ng/mL (15-150); Iron 31 ug/dL (37-145); Percent Saturation 17.4 % (20-50); Total Iron Binding Capacity 178 mcg/dl; Unsaturated Iron Binding 147 ug/dL (112-347)
[2022-06-26 13:03] VITALS: BP 122/72; PULSE 99; RESP 16; TEMP 36.7; O2SAT 98
[2022-06-26] MEDS: sodium chloride 0.9% 250 ML 75 ML IV (13:29)
[2022-06-26] MEDS: ferric carboxy (IVPB) 750 MG in sodium chloride 0.9% (100 ml) 100 ML 345 MG IV (13:30)
[2022-06-26 14:07] VITALS: BP 114/73; PULSE 87; RESP 16; TEMP 36.4; O2SAT 95
[2022-07-03 08:52] LABS: Basophils % 0.3 %; Eosinophils # 0.1 10^3/uL (0.0-0.8); Eosinophils % 0.7 %; Hematocrit 34.2 % (37.0-47.0); Hemoglobin 10.1 g/dL (11.5-15.3); Lymphocytes # 0.9 10^3/uL (0.8-4.8); Lymphocytes % 11.9 %; Mean Corpuscular HGB Conc 29.5 g/dL (30.0-36.0); Mean Corpuscular Hemoglobin 26.6 pg (28.0-34.0); Mean Platelet Volume 8.4 fL (7.4-10.4); Monocytes # 0.5 10^3/uL (0.2-0.9); Neutrophils # 6.02 10^3/uL (1.8-7.7); Neutrophils % 79.7 %; Nucleated Red Blood Cells % 0 %; Platelet Count 245 10^3/cmm (130-400); Red Cell Distribution Width 25.1 % (12.1-15.1); White Blood Count 7.6 10^3/uL (4.0-10.0)
[2022-07-03] MEDS: ferric carboxy (IVPB) 750 MG in sodium chloride 0.9% (100 ml) 100 ML 345 MG IV (09:06)
[2022-07-03 09:22] LABS: Alanine Aminotransferase 13 U/L (0-33); Albumin Level 3.5 g/dL (3.5-5.2); Alkaline Phosphatase 243 IU/L (35-105); Aspartate Amino Transferase 20 U/L (0-32); Blood Urea Nitrogen 10 mg/dL (8-23); Calcium 8.7 mg/dL (8.5-10.5); Carbon Dioxide 33 mmol/L (22-29); Chloride 100 mmol/L (98-107); Globulin 2.7 g/dL (1.3-4.6); Glucose 122 mg/dL (65-115); Osmolality Calculated 298 mOsm/kg (285-295); Sodium 144 mmol/L (136-145); Total Bilirubin 0.4 mg/dL (0.15-1.2); Total Protein 6.2 g/dL (6.6-8.7)
[2022-07-03] MEDS: sodium chloride 0.9% 250 ML 75 ML IV (10:45)
[2022-07-03] MEDS: pembrolizumab 200 MG in sodium chloride 0.9% 250 ML 516 MG IV (10:46)
[2022-07-03 11:30] VITALS: BP 137/83; PULSE 98; RESP 16; TEMP 37.1; O2SAT 96
[2022-07-10 08:28] LABS: Basophils % 0.2 %; Eosinophils # 0.1 10^3/uL (0.0-0.8); Eosinophils % 0.8 %; Hematocrit 34.9 % (37.0-47.0); Hemoglobin 10.6 g/dL (11.5-15.3); Lymphocytes % 15.7 %; Mean Corpuscular HGB Conc 30.4 g/dL (30.0-36.0); Mean Corpuscular Hemoglobin 27.8 pg (28.0-34.0); Mean Corpuscular Volume 91.6 fl (81-99); Monocytes # 0.6 10^3/uL (0.2-0.9); Monocytes % 9.1 %; Neutrophils % 73.7 %; Nucleated Red Blood Cells % 0 %; Platelet Count 179 10^3/cmm (130-400); Red Blood Count 3.81 10^6/uL (4.1-5.3); Red Cell Distribution Width 21.9 % (12.1-15.1); White Blood Count 6.2 10^3/uL (4.0-10.0)
[2022-07-10 08:54] LABS: Alanine Aminotransferase 11 U/L (0-33); Albumin Level 3.6 g/dL (3.5-5.2); Alkaline Phosphatase 200 U/L (35-105); Anion Gap 10.5 (5-19); Aspartate Amino Transferase 16 U/L (0-32); Blood Urea Nitrogen 14 mg/dL (8-23); Calcium 8.8 mg/dL (8.5-10.5); Carbon Dioxide 32 mmol/L (22-29); Chloride 103 mmol/L (98-107); Globulin 2.3 g/dL (1.3-4.6); Glucose 102 mg/dL (65-115); Osmolality Calculated 295 mOsm/kg (285-295); Potassium 3.5 mmol/L (3.5-5.1); Sodium 142 mmol/L (136-145); Total Bilirubin 0.3 mg/dL (0.15-1.2); Total Protein 5.9 g/dL (6.6-8.7)
== END 2022-07-19 23:59 | disposition home or self-care (01) ==
PROVIDERS: Internal Medicine Medical Oncology; Nurse Practitioner; PCP Registered Nurse; Visit Provider Nurse Practitioner Family
DX: C34.31 Malignant neoplasm of lower lobe, right bronchus or lung (principal); Z87.891 Personal history of nicotine dependence
CPT/HCPCS: 36591; 80053; 82728; 83540; 83550; 84443; 85025; 96365; 96367; 96413; 99214; 99215; J1439; J7050; J9271

== ENCOUNTER 2022-08-16 08:00 | Oncology outpatient (recurring) (ONCR) | payer MEDICARE, BC, SELFPAY ==
[2022-07-26 08:37] LABS: Basophils % 0.2 %; Eosinophils # 0.1 10^3/uL (0.0-0.8); Eosinophils % 1.3 %; Hemoglobin 12.2 g/dL (11.5-15.3); Lymphocytes # 1.7 10^3/uL (0.8-4.8); Lymphocytes % 19.5 %; Mean Corpuscular HGB Conc 31.3 g/dL (30.0-36.0); Mean Corpuscular Volume 92.9 fl (81-99); Mean Platelet Volume 8.5 fL (7.4-10.4); Monocytes # 0.6 10^3/uL (0.2-0.9); Neutrophils # 6.16 10^3/uL (1.8-7.7); Neutrophils % 71.5 %; Nucleated Red Blood Cells % 0 %; Platelet Count 169 10^3/cmm (130-400); Red Cell Distribution Width 17.1 % (12.1-15.1); White Blood Count 8.6 10^3/uL (4.0-10.0)
[2022-07-26 08:58] LABS: Alanine Aminotransferase 15 U/L (0-33); Albumin Level 4.1 g/dL (3.5-5.2); Alkaline Phosphatase 223 U/L (35-105); Aspartate Amino Transferase 22 U/L (0-32); Blood Urea Nitrogen 20 mg/dL (8-23); Calcium 9.2 mg/dL (8.5-10.5); Carbon Dioxide 33 mmol/L (22-29); Chloride 98 mmol/L (98-107); Globulin 2.2 g/dL (1.3-4.6); Glucose 112 mg/dL (65-115); Osmolality Calculated 295 mOsm/kg (285-295); Sodium 141 mmol/L (136-145); Total Bilirubin 0.3 mg/dL (0.15-1.2); Total Protein 6.3 g/dL (6.6-8.7)
[2022-07-26] MEDS: pembrolizumab 200 MG in sodium chloride 0.9% 250 ML 516 MG IV (10:47)
[2022-07-26 11:21] VITALS: BP 140/71; PULSE 83; RESP 16; TEMP 35.9; O2SAT 93
[2022-08-16 08:58] LABS: Hematocrit 39.2 % (37.0-47.0); Hemoglobin 12.8 g/dL (11.5-15.3); Lymphocytes # 0.6 10^3/uL (0.8-4.8); Lymphocytes % 17.3 %; Mean Corpuscular HGB Conc 32.7 g/dL (30.0-36.0); Mean Corpuscular Hemoglobin 30.7 pg (28.0-34.0); Mean Platelet Volume 8.5 fL (7.4-10.4); Monocytes % 1.1 %; Neutrophils # 2.89 10^3/uL (1.8-7.7); Neutrophils % 80.8 %; Nucleated Red Blood Cells % 0 %; Platelet Count 168 10^3/cmm (130-400); Red Blood Count 4.17 10^6/uL (4.1-5.3); Red Cell Distribution Width 13.9 % (12.1-15.1); White Blood Count 3.6 10^3/uL (4.0-10.0)
[2022-08-16 09:45] LABS: Alanine Aminotransferase 11 U/L (0-33); Albumin Level 4.2 g/dL (3.5-5.2); Alkaline Phosphatase 228 U/L (35-105); Anion Gap 15.7 (5-19); Aspartate Amino Transferase 17 U/L (0-32); Blood Urea Nitrogen 17 mg/dL (8-23); Calcium 9.7 mg/dL (8.5-10.5); Carbon Dioxide 30 mmol/L (22-29); Chloride 99 mmol/L (98-107); Globulin 2.4 g/dL (1.3-4.6); Glucose 179 mg/dL (65-115); Osmolality Calculated 298 mOsm/kg (285-295); Potassium 3.7 mmol/L (3.5-5.1); Sodium 141 mmol/L (136-145); Thyroid Stimulating Hormone 0.82 uIU/mL (0.27-4.20); Total Bilirubin 0.3 mg/dL (0.15-1.2); Total Protein 6.6 g/dL (6.6-8.7)
[2022-08-16] MEDS: pembrolizumab 200 MG in sodium chloride 0.9% 250 ML 516 MG IV (10:38)
== END 2022-08-17 09:09 | disposition home or self-care (01) ==
PROVIDERS: Internal Medicine Medical Oncology; PCP Registered Nurse; Visit Provider Nurse Practitioner
DX: C34.31 Malignant neoplasm of lower lobe, right bronchus or lung (principal); Z51.12 Encounter for antineoplastic immunotherapy; Z79.899 Other long term (current) drug therapy; Z87.891 Personal history of nicotine dependence; Z92.3 Personal history of irradiation; R60.0 Localized edema; E87.6 Hypokalemia
CPT/HCPCS: 80053; 84443; 85025; 96413; 99213; 99214; 99215; J7050; J9271

== ENCOUNTER 2022-09-06 09:16 | Oncology outpatient (recurring) (ONCR) | payer MEDICARE, BC, SELFPAY ==
[2022-09-06 09:47] LABS: Basophils % 0.3 %; Eosinophils % 0.1 %; Hematocrit 38.6 % (37.0-47.0); Lymphocytes # 1.5 10^3/uL (0.8-4.8); Lymphocytes % 15.4 %; Mean Corpuscular HGB Conc 33.7 g/dL (30.0-36.0); Mean Corpuscular Hemoglobin 30.9 pg (28.0-34.0); Mean Corpuscular Volume 91.7 fl (81-99); Mean Platelet Volume 8.2 fL (7.4-10.4); Monocytes # 0.7 10^3/uL (0.2-0.9); Monocytes % 6.7 %; Neutrophils # 7.42 10^3/uL (1.8-7.7); Nucleated Red Blood Cells % 0 %; Platelet Count 215 10^3/cmm (130-400); Red Blood Count 4.21 10^6/uL (4.1-5.3); Red Cell Distribution Width 12.9 % (12.1-15.1); White Blood Count 9.7 10^3/uL (4.0-10.0)
[2022-09-06 10:18] LABS: Alanine Aminotransferase 10 U/L (0-33); Albumin Level 3.9 g/dL (3.5-5.2); Alkaline Phosphatase 230 U/L (35-105); Anion Gap 14.6 (5-19); Aspartate Amino Transferase 14 U/L (0-32); Blood Urea Nitrogen 16 mg/dL (8-23); Calcium 9.5 mg/dL (8.5-10.5); Carbon Dioxide 31 mmol/L (22-29); Chloride 101 mmol/L (98-107); Globulin 2.5 g/dL (1.3-4.6); Glucose 107 mg/dL (65-115); Osmolality Calculated 298 mOsm/kg (285-295); Potassium 3.6 mmol/L (3.5-5.1); Sodium 143 mmol/L (136-145); Thyroid Stimulating Hormone 1.43 uIU/mL (0.27-4.20); Total Bilirubin 0.3 mg/dL (0.15-1.2); Total Protein 6.4 g/dL (6.6-8.7)
[2022-09-06] MEDS: pembrolizumab 200 MG in sodium chloride 0.9% 250 ML 516 MG IV (12:01)
[2022-09-06 12:42] VITALS: BP 128/72; PULSE 90; RESP 16; TEMP 36.6; O2SAT 93
== END 2022-09-18 23:59 | disposition home or self-care (01) ==
PROVIDERS: PCP Registered Nurse; Visit Provider Nurse Practitioner
DX: C34.31 Malignant neoplasm of lower lobe, right bronchus or lung (principal); Z51.12 Encounter for antineoplastic immunotherapy; J91.0 Malignant pleural effusion; R19.7 Diarrhea, unspecified; Z79.899 Other long term (current) drug therapy; Z87.891 Personal history of nicotine dependence; Z92.3 Personal history of irradiation
CPT/HCPCS: 80053; 84443; 85025; 96413; 99213; 99214; J7050; J9271

== ENCOUNTER 2022-10-16 10:17 | Outpatient (CLI) | payer MEDICARE, BC, SELFPAY ==
[2022-10-16] MEDS: iohexol 350 mg/mL 100 mL Btl PO (10:32)
[2022-10-16] MEDS: iohexol 350 mg/mL 100 mL Btl IV (11:36)
--- NOTE | 2022-10-16 12:00 | CT_ITS ---
WS: [id number] CT CHEST, ABDOMEN, AND PELVIS TECHNIQUE: Contrast-enhanced CT of the chest, abdomen, and pelvis with coronal and sagittal reformatt ed images. CLINICAL INFORMATION: Restaging COMPARISON: CT chest February 15, 2022. PET/CT February 25, 2022 DLP: 1253.[address] scans at [facility] use at least one of these dose optimization techniques: automated e xposure control; mA and/or kV adjustment per patient size (includes targeted exams where dose is matc hed to clinical indication); or iterative reconstruction. CT CHEST: Moderate chronic emphysematous changes. Small RIGHT pleural effusion. Previously described RIGHT infr ahilar FDG avid neoplasm has improved and essentially resolved since the prior PET/CT. Bronchovascula r thickening along the RIGHT hilum. No focal mass. Interstitial thickening likely treatment-related c hanges with compressive atelectasis in the RIGHT lower lobe. Additional spiculated mass in the RIGHT upper lobe previously described has also essentially resolved with a small amount of residual hazy op acity and pleural thickening in the RIGHT upper lobe. Aortic calcification. Coronary calcification. Calcified mediastinal lymph nodes. No mediastinal or hi lar lymphadenopathy. No axillary lymphadenopathy. CT ABDOMEN AND PELVIS: Moderate esophageal hiatal hernia. Cardiomegaly. Prior sternotomy. Mild diffuse fatty infiltration th e liver. A few low-attenuation lesions in the liver likely hepatic cysts/hemangiomas appear unchanged . Portal vein and splenic vein are patent. Splenic granulomas. Adrenal glands are normal. Normal rosalio l parenchymal enhancement. No hydronephrosis. Aortic calcification. Urine distended bladder. No adeno sachin in the abdomen or pelvis. Small infrarenal abdominal aortic aneurysm measuring 2.2 x 2.3 CM. Di sc space narrowing L4-L5. CT/CT chest abd pel w con* IMPRESSION: 1. Previously described RIGHT infrahilar and RIGHT upper lobe masses have esse ntially resolved consistent with interval response to therapy. Mild bronchovasc ular thickening along the RIGHT hilum. 2. Small RIGHT pleural effusion with airspace infiltrates and interstitial thi ckening in the RIGHT lower lobe. Recommend correlation for pneumonia. Some this likely due to treatment-related changes/radiation. 3. No mediastinal or hilar lymphadenopathy. 4. No evidence of metastatic disease in the abdomen or pelvis. 5. Cardiomegaly. 6. Moderate esophageal hiatal hernia.
== END 2022-10-16 10:18 | disposition home or self-care (01) ==
LOC: RAD 10:17
PROVIDERS: PCP Registered Nurse; Visit Provider Internal Medicine Medical Oncology
DX: C34.31 Malignant neoplasm of lower lobe, right bronchus or lung (principal); K44.9 Diaphragmatic hernia without obstruction or gangrene; I51.7 Cardiomegaly; J90 Pleural effusion, not elsewhere classified
CPT/HCPCS: 71260; 74177; Q9967

== ENCOUNTER 2022-10-18 08:00 | Oncology outpatient (recurring) (ONCR) | payer MEDICARE, BC, SELFPAY ==
[2022-09-28] MEDS: pembrolizumab 200 MG in sodium chloride 0.9% 250 ML 516 MG IV (12:14)
[2022-10-18 08:18] LABS: Basophils % 0.2 %; Eosinophils # 0.1 10^3/uL (0.0-0.8); Eosinophils % 0.9 %; Hematocrit 38.1 % (37.0-47.0); Hemoglobin 12.3 g/dL (11.5-15.3); Lymphocytes # 1.4 10^3/uL (0.8-4.8); Lymphocytes % 14.5 %; Mean Corpuscular HGB Conc 32.3 g/dL (30.0-36.0); Mean Corpuscular Hemoglobin 30.4 pg (28.0-34.0); Mean Corpuscular Volume 94.1 fl (81-99); Mean Platelet Volume 7.9 fL (7.4-10.4); Monocytes # 0.8 10^3/uL (0.2-0.9); Neutrophils # 7.09 10^3/uL (1.8-7.7); Nucleated Red Blood Cells % 0 %; Platelet Count 233 10^3/cmm (130-400); Red Blood Count 4.05 10^6/uL (4.1-5.3); Red Cell Distribution Width 13.1 % (12.1-15.1); White Blood Count 9.3 10^3/uL (4.0-10.0)
[2022-10-18 09:19] LABS: Alanine Aminotransferase 15 U/L (0-33); Albumin Level 3.9 g/dL (3.5-5.2); Alkaline Phosphatase 342 U/L (35-105); Aspartate Amino Transferase 16 U/L (0-32); Blood Urea Nitrogen 17 mg/dL (8-23); Calcium 9.5 mg/dL (8.5-10.5); Carbon Dioxide 29 mmol/L (22-29); Chloride 102 mmol/L (98-107); Globulin 2.5 g/dL (1.3-4.6); Glucose 103 mg/dL (65-115); Osmolality Calculated 296 mOsm/kg (285-295); Sodium 142 mmol/L (136-145); Thyroid Stimulating Hormone 2.05 uIU/mL (0.27-4.20); Total Bilirubin 0.4 mg/dL (0.15-1.2); Total Protein 6.4 g/dL (6.6-8.7)
[2022-10-18] MEDS: pembrolizumab 200 MG in sodium chloride 0.9% 250 ML 516 MG IV (11:02)
[2022-10-18 11:43] VITALS: BP 111/64; PULSE 86; RESP 16; TEMP 36.9; O2SAT 96
== END 2022-10-18 23:59 | disposition home or self-care (01) ==
PROVIDERS: Internal Medicine Medical Oncology; PCP Registered Nurse; Visit Provider Nurse Practitioner
DX: Z51.12 Encounter for antineoplastic immunotherapy (principal); C34.31 Malignant neoplasm of lower lobe, right bronchus or lung; J91.0 Malignant pleural effusion; B37.81 Candidal esophagitis; Z79.52 Long term (current) use of systemic steroids; Z79.899 Other long term (current) drug therapy; Z87.891 Personal history of nicotine dependence
CPT/HCPCS: 80053; 84443; 85025; 96413; 99214; J7050; J9271

== ENCOUNTER → 2022-10-30 13:45 | Outpatient (BNVA) | payer MEDICARE, BC, SELFPAY | PROVIDERS: PCP Registered Nurse; Visit Provider Internal Medicine Cardiovascular Disease | DX: I25.10 Atherosclerotic heart disease of native coronary artery without angina pectoris (principal); I10 Essential (primary) hypertension; I48.3 Typical atrial flutter; Z87.891 Personal history of nicotine dependence; Z95.1 Presence of aortocoronary bypass graft | CPT/HCPCS: 99214 ==

== ENCOUNTER 2022-11-08 10:48 | Oncology outpatient (recurring) (ONCR) | payer MEDICARE, BC, SELFPAY ==
[2022-11-08 12:12] LABS: Basophils % 0.1 %; Eosinophils # 0.1 10^3/uL (0.0-0.8); Eosinophils % 1.1 %; Hematocrit 36.2 % (37.0-47.0); Hemoglobin 11.7 g/dL (11.5-15.3); Lymphocytes # 1.4 10^3/uL (0.8-4.8); Lymphocytes % 18.4 %; Mean Corpuscular HGB Conc 32.3 g/dL (30.0-36.0); Mean Corpuscular Hemoglobin 30.5 pg (28.0-34.0); Mean Corpuscular Volume 94.5 fl (81-99); Mean Platelet Volume 8.5 fL (7.4-10.4); Monocytes # 0.6 10^3/uL (0.2-0.9); Monocytes % 8.4 %; Neutrophils # 5.41 10^3/uL (1.8-7.7); Neutrophils % 71.7 %; Nucleated Red Blood Cells % 0 %; Platelet Count 214 10^3/cmm (130-400); Red Blood Count 3.83 10^6/uL (4.1-5.3); Red Cell Distribution Width 13.4 % (12.1-15.1); White Blood Count 7.5 10^3/uL (4.0-10.0)
[2022-11-08 12:42] LABS: Alanine Aminotransferase 24 U/L (0-33); Albumin Level 4.1 g/dL (3.5-5.2); Alkaline Phosphatase 432 U/L (35-105); Anion Gap 14.9 (5-19); Aspartate Amino Transferase 24 U/L (0-32); Blood Urea Nitrogen 17 mg/dL (8-23); Calcium 9.4 mg/dL (8.5-10.5); Carbon Dioxide 29 mmol/L (22-29); Chloride 100 mmol/L (98-107); Globulin 2.2 g/dL (1.3-4.6); Glucose 114 mg/dL (65-115); Osmolality Calculated 292 mOsm/kg (285-295); Potassium 3.9 mmol/L (3.5-5.1); Sodium 140 mmol/L (136-145); Thyroid Stimulating Hormone 1.84 uIU/mL (0.27-4.20); Total Bilirubin 0.3 mg/dL (0.15-1.2); Total Protein 6.3 g/dL (6.6-8.7)
[2022-11-08] MEDS: sodium chloride 0.9% 250 ML 100 ML IV (13:02)
[2022-11-08] MEDS: pembrolizumab 200 MG in sodium chloride 0.9% 250 ML 516 MG IV (13:25)
[2022-11-08 14:08] VITALS: BP 120/71; PULSE 77; TEMP 36.7; O2SAT 99
== END 2022-11-18 23:59 | disposition home or self-care (01) ==
LOC: ONCMED 10:48
PROVIDERS: PCP Registered Nurse; Visit Provider Nurse Practitioner
DX: Z51.12 Encounter for antineoplastic immunotherapy (principal); C34.31 Malignant neoplasm of lower lobe, right bronchus or lung; Z79.899 Other long term (current) drug therapy
CPT/HCPCS: 80053; 84443; 85025; 96413; J7050; J9271

== ENCOUNTER 2022-11-29 10:45 | Oncology outpatient (recurring) (ONCR) | payer MEDICARE, BC, SELFPAY ==
[2022-11-29 11:15] LABS: Basophils % 0.2 %; Eosinophils # 0.1 10^3/uL (0.0-0.8); Eosinophils % 0.5 %; Hematocrit 38.9 % (37.0-47.0); Hemoglobin 12.6 g/dL (11.5-15.3); Lymphocytes # 1.4 10^3/uL (0.8-4.8); Lymphocytes % 12.5 %; Mean Corpuscular HGB Conc 32.4 g/dL (30.0-36.0); Mean Corpuscular Hemoglobin 29.9 pg (28.0-34.0); Mean Corpuscular Volume 92.4 fl (81-99); Monocytes # 0.9 10^3/uL (0.2-0.9); Monocytes % 7.8 %; Neutrophils # 8.63 10^3/uL (1.8-7.7); Neutrophils % 78.7 %; Nucleated Red Blood Cells % 0 %; Platelet Count 189 10^3/cmm (130-400); Red Blood Count 4.21 10^6/uL (4.1-5.3); Red Cell Distribution Width 12.8 % (12.1-15.1)
[2022-11-29 11:45] LABS: Alanine Aminotransferase 21 U/L (0-33); Albumin Level 4.1 g/dL (3.5-5.2); Alkaline Phosphatase 376 U/L (35-105); Aspartate Amino Transferase 18 U/L (0-32); Blood Urea Nitrogen 19 mg/dL (8-23); Calcium 9.1 mg/dL (8.5-10.5); Carbon Dioxide 28 mmol/L (22-29); Chloride 102 mmol/L (98-107); Globulin 2.2 g/dL (1.3-4.6); Glucose 107 mg/dL (65-115); Osmolality Calculated 293 mOsm/kg (285-295); Sodium 140 mmol/L (136-145); Total Bilirubin 0.3 mg/dL (0.15-1.2); Total Protein 6.3 g/dL (6.6-8.7)
[2022-11-29] MEDS: pembrolizumab 200 MG in sodium chloride 0.9% 250 ML 516 MG IV (13:51)
[2022-11-29 14:32] VITALS: BP 125/71; PULSE 75; RESP 16; TEMP 35.7; O2SAT 97
== END 2022-12-19 23:59 | disposition home or self-care (01) ==
PROVIDERS: Internal Medicine Medical Oncology; PCP Registered Nurse; Visit Provider Nurse Practitioner
DX: Z51.12 Encounter for antineoplastic immunotherapy (principal); C34.31 Malignant neoplasm of lower lobe, right bronchus or lung; J91.0 Malignant pleural effusion; C78.01 Secondary malignant neoplasm of right lung; R74.8 Abnormal levels of other serum enzymes; Z79.899 Other long term (current) drug therapy; Z87.891 Personal history of nicotine dependence
CPT/HCPCS: 80053; 84443; 85025; 96413; 99213; 99214; J7050; J9271